=== PATIENT | male | born 1955 | race Caucasian/White ===

== ENCOUNTER → 2016-05-18 | Outpatient (CLI) | payer OTHER ==
[~2016-05-18] MED LIST: /HCTZ25TA PO; /PRAV20TA PO; /TAMS4CA PO; /WARF25TA PO; ALBU17IN INH; ALLO100T PO; AMLO10TA2 PO; ATOR1TAB21 PO; BENA40TA2 PO; CITA10TA2 PO; CLAR1CHW PO; COMBAER6 INH; FLOM5CAP PO; GLYB5TAB5 PO; INSULANT SC; METF1000 PO; METO12TA PO; NOVOINJ3 SC; PERCOCET PO; PRIL20CA9 PO; SING10TA32 PO; TYLE325T5 PO; VICT18IN SC
--- NOTE | 2016-05-18 09:29 | REP ---
CT ABDOMEN AND PELVIS WITHOUT CONTRAST: 05/18/2016 INDICATION: Kidney stones or disorder of kidneys and ureter. COMPARISON: CT of the pelvis 04/24/2016. FINDINGS: Minimal dependent atelectasis noted in the lung bases left greater than right. Liver, spleen, pancreas, gallbladder are unremarkable. There is thickening of the left adrenal which is of low density consistent with adenoma. Left kidney is without hydronephrosis, 10.9 cm in length. There are no obstructing ureteral calculi. There is a nonobstructing 10 mm calculus in the lower pole left kidney. There is moderate left perinephric low density fluid collection of 2.5 cm depth and 8 HU density, and previously of fluid density and 1.8 cm depth on 2015 . This is most compatible with sequela of previous left perinephric hematoma and is again of simple fluid density. Moderate diffuse atrophic changes are seen in the right kidney, which is 8.9 cm in length. There is [id number] dilatation of the right renal pelvis with narrowing at the right ureteropelvic junction and right ureter. There are no obstructing right ureteral calculi. There are a few nonobstructing right nephrocalculi, largest 3 mm in diameter. The stomach is contracted. Small bowel without obstruction. Terminal ileum is normal; appendix is surgically absent. Atherosclerotic change is noted in the aorta. There are two very small caliber right main renal arteries. The bladder is unremarkable. The prostate is not enlarged. There is moderate retained colonic stool and few scattered colonic diverticula. There is no free air or ascites. IMPRESSION: 1. Left perinephric simple fluid collection of 2.5 cm depth. This may represent sequela of a previous perinephric hematoma, slightly increased in depth now 2.6 mm depth, previously 1.8 cm depth. 2. Narrowing at the right ureteropelvic junction again noted. No obstructing ureteral calculi bilaterally. Bilateral nonobstructing nephrocalculi as above. Signed by Whit Millan MD 05/21/2016 10:36 A
== END ==
LOC: M RAD 07:00
PROVIDERS: ATTEND Nurse Practitioner Women's Health
DX: N28.89 Other specified disorders of kidney and ureter (principal)

== ENCOUNTER → 2016-05-25 | Outpatient (CLI) | payer OTHER ==
[2016-05-25 18:11] LABS: CREATININE FOR GFR 2.27 MG/DL (0.70-1.30); GLOMERULAR FILTRATION RATE 31.4 (>49)
[2016-05-25 18:36] LABS: MEAN CORPUSCULAR HEMOGLOBIN 28.5 pg (27.0-33.0); MEAN CORPUSCULAR HGB CONC 33.9 g/dl (32.0-36.5); RED CELL DISTRIBUTION WIDTH 12.2 % (11.5-14.5); WHITE BLOOD COUNT 11.2 K/mm3 (4.0-10.0)
== END ==
LOC: M SMT 13:46
PROVIDERS: ATTEND Urology
DX: N28.89 Other specified disorders of kidney and ureter (principal)

== ENCOUNTER → 2016-08-06 | Outpatient (CLI) | payer OTHER ==
--- NOTE | 2016-08-07 08:44 | REP ---
CT abdomen pelvis without IV and oral contrast: Comparisons are 04/24/2016 and 05/18/2016. There are least four nonobstructive left renal calculi, wall in the lower pole, the largest measuring 12 mm. There are two right renal calculi, nonobstructive, the largest measuring seven millimeters. There is no hydronephrosis or hydroureter on the. The subcapsular fluid collection identified on the comparison studies in the left kidney has resolved. The right kidney is diffusely atrophic as previously. There is minor perinephric stranding of the left kidney, not unusual for patient age. There is minor perinephric stranding on the right kidney, not unusual for patient age. The visualized lung watt are unremarkable. The unenhanced hepatic parenchyma is homogeneous. The gallbladder, pancreas and spleen are unremarkable. There is a small low density left adrenal nodule measuring 9.[address] density, compatible with adenoma, unchanged. The right adrenal is unremarkable. The abdominal aorta is unremarkable. The bowel and mesentery are unremarkable. Pelvis: There is no ascites or adenopathy. The bladder is unremarkable. A few phleboliths are noted. The pelvic bowel loops are unremarkable. There is degenerative disc disease at L3-4, unchanged. There is minor mild bilateral hip osteoarthritis. Impression: There is no hydronephrosis. There are bilateral nonobstructive renal calculi as described. No ureteral or bladder calculi. Atrophic right kidney, unchanged. The subcapsular fluid collection noted in the left kidney previously has resolved. Small left adrenal adenoma, unchanged. Otherwise, negative CT abdomen and pelvis. Signed by Brandon Correia MD 08/07/2016 08:36 A
== END ==
LOC: M RAD 16:52
PROVIDERS: ATTEND Urology
DX: N20.0 Calculus of kidney (principal)

== ENCOUNTER → 2016-09-25 | Outpatient (CLI) | payer OTHER ==
[~2016-09-25] VITALS: Ht 193 cm; Wt 129.3 kg
[~2016-09-25] MED LIST changes: +ALBU17IN2 INH; +ASPI1TAB PO; +BACT800T5 PO; +CHLO125TA PO; +GLIP5TAB15 PO; +LIDOCAINE 2% INJ 100 MG/5 ML SDV (FOR ANES.) As Ordered ONE; +LORA10TA2 PO; +MIDAZOLAM INJ 2 MG/2 ML VIAL (J2250) As Ordered ONE; +NS 1,000 ML IV ONE; +PAME10CA PO; +PROPOFOL 500 MG/50 ML VIAL As Ordered ONE; +VICO5TAB16 PO; +[UNRECOGNIZED DRUG - OTHER] SC
--- NOTE | 2016-09-25 11:41 | ROOR ---
Patient Name: Marino Blackmon Procedure Date: 09/25/2016 11:27 AM Date of : 1955 Age: 61 Room: [facility] Gender: Male Note Status: Finalized Procedure: Upper GI endoscopy Indications: Heartburn, Suspected gastroparesis Providers: Ousmane VALENZUELA MD Referring MD: MAGED POOLE MD Requesting Provider: Medicines: Monitored Anesthesia Care Complications: No immediate complications. Procedure: Pre-Anesthesia Assessment: - The heart rate, respiratory rate, oxygen saturations, blood pressure, adequacy of pulmonary ventilation, and response to care were monitored throughout the procedure. The Endoscope was introduced through the mouth, and advanced to the second part of duodenum. The upper GI endoscopy was accomplished without difficulty. The patient tolerated the procedure well. Findings: The esophagus was normal. The stomach was normal. (compliant, large volume) The examined duodenum was normal. Impression: - Normal esophagus. - Normal stomach. - Normal examined duodenum. - No specimens collected. Recommendation: - Continue present medications. - Gastroparesis diet: - Eat smaller, more frequent meals throughout the day. - Low fat diet. - Liquid/soft foods are tolerated better than solid foods. - Low fiber/well cooked vegetables are tolerated better than high fiber/fibrous foods/raw vegetables. - Avoid medications that inhibit gastric/intestinal motility such as narcotic medications. Ousmane Valenzuela MD Ousmane VALENZUELA MD 09/25/2016 11:40:43 AM This report has been signed electronically. Number of Addenda: 0 Note Initiated On: 09/25/2016 11:27 AM Estimated Blood Loss: Estimated blood loss: none.
--- NOTE | 2016-09-25 12:02 | ROOR ---
Patient Name: Marino Blackmon Procedure Date: 09/25/2016 11:28 AM Date of : 1955 Age: 61 Room: [facility] Gender: Male Note Status: Finalized Procedure: Colonoscopy Indications: Screening for colorectal malignant neoplasm Providers: Ousmane VALENZUELA MD Referring MD: MAGED POOLE MD Requesting Provider: Medicines: Monitored Anesthesia Care Complications: No immediate complications. Procedure: Pre-Anesthesia Assessment: - The heart rate, respiratory rate, oxygen saturations, blood pressure, adequacy of pulmonary ventilation, and response to care were monitored throughout the procedure. The Colonoscope was introduced through the anus and advanced to 5 cm into the ileum. The colonoscopy was performed without difficulty. The patient tolerated the procedure well. The quality of the bowel preparation was good. Findings: The perianal and digital rectal examinations were normal. (Exam: Complete, Prep: Good or Excellent.) A 5 mm polyp was found in the sigmoid colon. The polyp was sessile. The polyp was removed with a cold snare. Resection and retrieval were complete. A 5 mm polyp was found in the mid transverse colon. The polyp was sessile. The polyp was removed with a cold snare. Resection and retrieval were complete. Two sessile polyps were found in the ascending colon. The polyps were 6 to 10 mm in size. These polyps were removed with a cold snare. Resection and retrieval were complete. To prevent bleeding after the polypectomy, two hemostatic clips were successfully placed. There was no bleeding at the end of the procedure. A few medium-mouthed diverticula were found in the sigmoid colon. Small Internal Hemorrhoids. Impression: - One 5 mm polyp in the sigmoid colon, removed with a cold snare. Resected and retrieved. - One 5 mm polyp in the mid transverse colon, removed with a cold snare. Resected and retrieved. - Two 6 to 10 mm polyps in the ascending colon, removed with a cold snare. Resected and retrieved. Clips were placed. - Mild diverticulosis in the sigmoid colon. - Small Internal Hemorrhoids. Recommendation: - Repeat colonoscopy in 3 years for surveillance. Ousmane Valenzuela MD Ousmane VALENZUELA MD 09/25/2016 12:02:35 PM This report has been signed electronically. Number of Addenda: 0 Note Initiated On: 09/25/2016 11:28 AM Estimated Blood Loss: Estimated blood loss: none.
[2016-09-25 12:25] VITALS: BP 148/96
== END ==
LOC: M OPP 10:41
PROVIDERS: ATTEND Internal Medicine Gastroenterology
DX: Z12.11 Encounter for screening for malignant neoplasm of colon (principal); D12.5 Benign neoplasm of sigmoid colon; D12.3 Benign neoplasm of transverse colon; D12.2 Benign neoplasm of ascending colon; K57.30 Diverticulosis of large intestine without perforation or abscess without bleeding; K64.8 Other hemorrhoids; R12 Heartburn; I10 Essential (primary) hypertension; J45.909 Unspecified asthma, uncomplicated; Z95.5 Presence of coronary angioplasty implant and graft; E11.9 Type 2 diabetes mellitus without complications; N28.9 Disorder of kidney and ureter, unspecified; J30.2 Other seasonal allergic rhinitis; Z79.82 Long term (current) use of aspirin; Z79.84 Long term (current) use of oral hypoglycemic drugs; Z79.4 Long term (current) use of insulin; Z79.899 Other long term (current) drug therapy; Z91.040 Latex allergy status

== ENCOUNTER → 2016-09-27 | Day surgery (SDC) | payer OTHER ==
[~2016-09-27] VITALS: Ht 193 cm; Wt 129.3 kg
[~2016-09-27] MED LIST changes: +BACTRIM 160MG/800MG DS TAB PO SCH; +CONRAY-60 60% 50ML VIAL (Q9961) As Ordered ONE; +HYDROmorphone HCL 1 MG/ML SYRINGE (J1170) IV PRN; +LR 1,000 ML IV ONE; +LR 1,000 ML IV SCH; +METOCLOPRAMIDE INJ 10MG/2ML VIAL (J2765) As Ordered ONE; +METOPROLOL TART 25 MG TABLET As Ordered ONE; +METOPROLOL TART 25 MG TABLET PO ONE; +NORCO, ANEXSIA 5/325MG TABLET (HYDROcodone/ACETAMINOPHEN) PO PRN; -NS 1,000 ML IV ONE; +ONDANSETRON 4MG/2ML VIAL (J2405) As Ordered ONE; +ONDANSETRON 4MG/2ML VIAL (J2405) IV PRN; +PERCOCET 5MG/325MG TAB PO PRN; +PHENYLephrine HCL 500 MCG/5 ML (100MCG/ML) SYRINGE (J2370) As Ordered ONE; +PROPOFOL 200 MG/20 ML VIAL As Ordered ONE; -PROPOFOL 500 MG/50 ML VIAL As Ordered ONE; +dexameTHASONE 4 MG/ML 1ML VIAL (J1100) As Ordered ONE; +ePHEDrine SULFATE 25 MG/5 ML(5MG/ML) SYRINGE As Ordered ONE; +fentaNYL 100 MCG/2 ML INJECTION (J3010) As Ordered ONE; +fentaNYL 100 MCG/2 ML INJECTION (J3010) IV PRN
[2016-09-27 14:34] VITALS: BP 148/80
--- NOTE | 2016-09-27 17:31 | REP ---
Retrograde pyelogram: The procedure is performed by the urologist, Dr. Valle. A series of three intraoperative fluoroscopic views are performed during left ureteral stent placement. The proximal pigtail of the stent is identified in the proximal ureter at the UPJ. The distal pigtail appears to be a in the pelvis but is partially excluded at the inferior film margin. Fluoroscopic exposure time is 1 minute and 59 seconds. Intraoperative fluoroscopic views are performed with last image hold technology. These images require no additional radiation. Signed by Brandon Correia MD 09/27/2016 05:23 P
[2016-09-27 19:50] VITALS: BP 170/76
--- NOTE | 2016-09-28 13:00 | RO ---
DATE OF PROCEDURE: 09/27/2016 PREOPERATIVE DIAGNOSIS: Left lower pole kidney stone. POSTOPERATIVE DIAGNOSIS: Left lower pole kidney stones in multiple pieces, gravel in the lower pole. SURGERY PERFORMED: Cystoscopy, left retrograde pyelogram, plus left ureteroscopy, plus left basket extraction of stones, plus left double J stent placement, #6 Divehi [place] Cook. SURGEON: Vamsi Garza MD RESIDENTIAL SERVICE TECHNICIAN: None. ANESTHESIA: General. COMPLICATIONS: None. ESTIMATED BLOOD LOSS: N/A. HISTORY OF PRESENT ILLNESS: 61-year-old male patient that a has a history of a 1.1 cm lower pole kidney stone. He received extracorporeal shock wave lithotripsy (ESWL) about five months ago. He got a perirenal hematoma. CT scan followup shows a 1.1 cm left lower pole kidney stone. For this reason, he has consented for a cystoscopy plus left retrograde pyelogram, plus left ureteroscopy, plus left basket extraction of stones, plus left double J stent placement, possible laser stone lithotripsy, possible basket extraction of stone. DESCRIPTION OF PROCEDURE: With the patient under general anesthesia in supine modified low lithotomy position, after prepping and draping the area of concern, which included the entire genitalia and abdomen, we started by introducing a 21 Divehi cystoscope with a 30 degree lens under videoendoscopic guidance. The fossa navicularis, penile urethra, bulbar urethra, and membranous urethra and prostatic urethra were totally normal. The prostatic urethra showed lateral lobe touching and a small middle lobe. Both ureteral orifices were seen excreting clear urine. At that moment in time, we placed a Pollack catheter on the left side and we did a retrograde pyelogram. We then proceeded to pass a Guidewire up to the kidney and took the Pollack catheter out and took the cystoscope out. We then proceeded to pass a ureteral access sheath following the Guidewire. A 12 Divehi x 35 cm ureteral access sheath. We then took the obturator out and the Guidewire stayed parallel to this ureteral access sheath. We loaded a flexible ureteroscope up the ureter and up to the kidney. We did a formal nephrostogram and did a formal nephroscopy with a flexible ureteroscope. We found a hard clot in the lower pole of the kidney and some gravel. We grabbed with ZeroTip basket all the gravel that could be grabbed since it was very tiny gravel localized in the lower pole. Then we flushed it with contrast and also we flushed it with normal saline. The gravel came out through the ureter. We then sent the gravel to biochemical analysis. Once we verified there was no big stones in the kidney, we did a retrograde ureteroscopy by removing the ureteral access sheath and the ureteroscope. There were no stones in the ureter. At that moment in time, we grabbed the cystoscope and placed a left double J stent following the Guidewire. Once the stent was in good position, we actively took the Guidewire out. We could see the curl in the kidney and curl in the bladder. There were no complications of the procedure. The patient will go home today with antibiotics and pain medication. Followup at [facility] [place] in about two weeks for removal of the left double J stent.
== END ==
LOC: M SDC 12:05
PROVIDERS: ATTEND Urology
DX: N20.0 Calculus of kidney (principal); I12.9 Hypertensive chronic kidney disease with stage 1 through stage 4 chronic kidney disease, or unspecified chronic kidney disease; E11.22 Type 2 diabetes mellitus with diabetic chronic kidney disease; I25.10 Atherosclerotic heart disease of native coronary artery without angina pectoris; K21.9 Gastro-esophageal reflux disease without esophagitis; J44.9 Chronic obstructive pulmonary disease, unspecified; N40.0 Benign prostatic hyperplasia without lower urinary tract symptoms; E78.5 Hyperlipidemia, unspecified; M25.519 Pain in unspecified shoulder; M19.90 Unspecified osteoarthritis, unspecified site; J45.909 Unspecified asthma, uncomplicated; N18.3 Chronic kidney disease, stage 3 (moderate); R06.83 Snoring; G62.9 Polyneuropathy, unspecified; K92.9 Disease of digestive system, unspecified; Z95.5 Presence of coronary angioplasty implant and graft; Z87.891 Personal history of nicotine dependence; Z79.899 Other long term (current) drug therapy; Z79.82 Long term (current) use of aspirin; Z79.4 Long term (current) use of insulin
CPT/HCPCS: 36415; 52332; 52352; 74420; 82360; 86850; 86900; 86901; 88300; C1769; C1894; C2617

== ENCOUNTER → 2016-10-15 | Outpatient (REF) | payer OTHER ==
[~2016-10-15] MED LIST changes: -BACTRIM 160MG/800MG DS TAB PO SCH; +BENA40TA7 PO; -CONRAY-60 60% 50ML VIAL (Q9961) As Ordered ONE; +GLIP1TAB49 PO; -GLIP5TAB15 PO; -HYDROmorphone HCL 1 MG/ML SYRINGE (J1170) IV PRN; -LIDOCAINE 2% INJ 100 MG/5 ML SDV (FOR ANES.) As Ordered ONE; -LR 1,000 ML IV ONE; -LR 1,000 ML IV SCH; +METF10004 PO; -METO12TA PO; +METO1TAB87 PO; -METOCLOPRAMIDE INJ 10MG/2ML VIAL (J2765) As Ordered ONE; -METOPROLOL TART 25 MG TABLET As Ordered ONE; -METOPROLOL TART 25 MG TABLET PO ONE; -MIDAZOLAM INJ 2 MG/2 ML VIAL (J2250) As Ordered ONE; -NORCO, ANEXSIA 5/325MG TABLET (HYDROcodone/ACETAMINOPHEN) PO PRN; -ONDANSETRON 4MG/2ML VIAL (J2405) As Ordered ONE; -ONDANSETRON 4MG/2ML VIAL (J2405) IV PRN; -PERCOCET 5MG/325MG TAB PO PRN; -PHENYLephrine HCL 500 MCG/5 ML (100MCG/ML) SYRINGE (J2370) As Ordered ONE; -PROPOFOL 200 MG/20 ML VIAL As Ordered ONE; -dexameTHASONE 4 MG/ML 1ML VIAL (J1100) As Ordered ONE; -ePHEDrine SULFATE 25 MG/5 ML(5MG/ML) SYRINGE As Ordered ONE; -fentaNYL 100 MCG/2 ML INJECTION (J3010) As Ordered ONE; -fentaNYL 100 MCG/2 ML INJECTION (J3010) IV PRN
== END ==
LOC: M LAB REF 14:00
PROVIDERS: ATTEND Urology
DX: N20.0 Calculus of kidney (principal)

== ENCOUNTER → 2018-03-07 | Outpatient (CLI) | payer MEDICARE, OTHER | LOC: M RAD 14:42 | DX: J32.0 Chronic maxillary sinusitis (principal) | CPT/HCPCS: 70486 ==

== ENCOUNTER → 2019-06-04 | Outpatient (CLI) | payer MEDICARE ==
[~2019-06-04] MED LIST changes: -/HCTZ25TA PO; -/PRAV20TA PO; -/TAMS4CA PO; -/WARF25TA PO; +AMLO10TA5 PO; -ASPI1TAB PO; +ASPI81TA26 PO; +BENA40TA5 PO; -BENA40TA7 PO; -CLAR1CHW PO; +CLAR1CHW2 PO; +COUM1TAB18 PO; +FLOM0.4C39 PO; -FLOM5CAP PO; -GLIP1TAB49 PO; +GLIP5TAB20 PO; +HYDR-3644 PO; +LORA-243 PO; -LORA10TA2 PO; +OXYC1TAB23 PO; +PRAV1TAB39 PO; -VICO5TAB16 PO; +VICO5TAB17 PO
--- NOTE | 2019-06-04 10:37 | REP ---
CT chest without contrast: Low-dose screening exam. History: Personal history of nicotine dependence. No comparison chest CT. 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 There are mild areas of linear fibrosis in the left base and right base as well as in the right apex. No pulmonary mass lesion is seen. There is a 7 mm ground-glass opacity in the right upper lobe on page 32 of 117 in series 201 of today's study. There is a granulomatous calcification in the left upper lobe on page 45. No other significant pulmonary nodule is appreciated. Some vascular calcification is observed. Impression: 7 mm nonsolid nodule, ground-glass opacity right upper lobe. Lung-RADS category [address] CT scan 1 year. Electronically Signed by Feng Mckeon MD 06/04/2019 02:37 P
== END ==
LOC: M RAD 09:18
PROVIDERS: ATTEND Physician Assistant
DX: Z87.891 Personal history of nicotine dependence (principal)

== ENCOUNTER → 2020-03-07 | Outpatient (CLI) | payer MEDICARE ==
[~2020-03-07] MED LIST changes: -AMLO10TA5 PO; +AMLO1TAB25 PO
--- NOTE | 2020-03-07 11:53 | REP ---
INDICATION: OTHER NONSPECIFIC ABN FINDINGS OF LUNG FIELD. New. COMPARISON: Outside chest x-ray 07/13/[address] 01/06/2018, low-dose lung screening CT 06/04/2019 TECHNIQUE: Noncontrast scanning through the chest with coronal and sagittal reconstructions provided FINDINGS: On image 33 of the axial projections there is a 7 mm non-solid nodular density unchanged since the 01/06/2018 CT in the right upper lobe. There are dependent atelectatic changes deep sulcus of the left lower lobe no pleural effusion, acute infiltrate or other lung nodules there are some minor areas of linear fibrotic change in the lower lung zones as well. The heart is not enlarged. There are coronary artery calcifications and calcifications at the mitral annulus. Aortic arch calcifications noted but no aneurysm. No pathologic sized mediastinal or hilar adenopathy. No axillary or supraclavicular mass. There is a 2.2 cm low-density nodule in the left lobe of the thyroid as before. Bone windows show sternum, manubrium, medial clavicles, visualized portions of scapulae, humeral heads ribs and spine without acute finding degenerative changes are seen in the mid lower thoracic spine as well as the upper lumbar view levels. The upper abdomen shows liver, spleen, gallbladder and that portion of pancreas included to be unremarkable. The adrenal glands intact with thickened limbs suggesting adrenal hyperplasia but stable and no mass. No hiatal hernia. Some atrophy and upper pole cyst for the right kidney IMPRESSION: 1. Stable 7 mm non solid nodule right upper lobe dating back to a CT 01/06/2018. This stability is reassuring. There are some minor basilar areas of subsegmental atelectasis and linear scarring unchanged. No other significant or acute lung finding. The upper abdomen and mediastinum were unchanged without new or acute finding. <Electronically signed by Bharat Thakur > 03/07/20 1520
== END ==
LOC: M RAD 10:12
PROVIDERS: ATTEND Physician Assistant
DX: R91.8 Other nonspecific abnormal finding of lung field (principal)

== ENCOUNTER → 2020-03-31 | Outpatient (CLI) | payer MEDICARE | LOC: M LABSMTC 12:22 | PROVIDERS: ATTEND Family Medicine | DX: Z20.828 Contact with and (suspected) exposure to other viral communicable diseases (principal) ==

== ENCOUNTER → 2020-10-24 | Outpatient (REF) | payer MEDICARE ==
[2020-10-25 18:52] LABS: HEPATITIS B CORE ANTIBODY IGM NEGATIVE (NEGATIVE); HEPATITIS B SURFACE ANTIBODY NEGATIVE (POSITIVE); HEPATITIS B SURFACE ANTIGEN NEGATIVE (NEGATIVE); HEPATITIS C VIRUS ABY INDEX < 0.0 INDEX (<0.8)
== END ==
LOC: M LAB REF 17:16
PROVIDERS: ATTEND Internal Medicine Nephrology
DX: N18.5 Chronic kidney disease, stage 5 (principal); E11.22 Type 2 diabetes mellitus with diabetic chronic kidney disease; I50.32 Chronic diastolic (congestive) heart failure

== ENCOUNTER → 2020-11-01 | Outpatient (CLI) | payer MEDICARE ==
[~2020-11-01] MED LIST changes: +ELIQ5TAB PO; +LOVE1INJ SC; +SPIR1CAP INH; +SYMB16INH INH
--- NOTE | 2020-11-03 14:40 | IRCOV ---
[facility] IR Consult Office Visit IR Consult Office Visit DATE: Nov 01, 2020 REASON FOR CONSULTATION/CHIEF COMPLAINT: PermCath. HISTORY OF PRESENT ILLNESS: 65-year-old male with diabetes, hypertension, atrial fibrillation, coronary artery disease and worsening chronic renal failure. Patient reports feeling "crappy" for some weeks. He is not urinating as much as he normally does even though his Lasix was increased to 3 pills, twice a day. He reports he had bilateral leg swelling up to the groin, which improved somewhat after increasing diuretics. He reports headaches, fatigue and states he feels cold all the time. Patient denies fevers. Patient reports everything started going downhill since July 2020, when he was admitted to [facility] with atrial fibrillation. His kidney function dropped to 13%. He is under the care of Dr. Aleman for cardiology. He sees Dr. Gamble for nephrology and nephrology recommended starting hemodialysis as soon as possible. He is here to be evaluated for PermCath placement. Patient is on Eliquis for atrial fibrillation. He denies chest pain. He has neve r been on dialysis in the past. ALLERGIES: Please see below. HOME MEDICATIONS: Please see below. PAST MEDICAL HISTORY: Hypertension Asthma Hypercholesterolemia Type 2 diabetes COPD Heart attack 2 Kidney stones PAST SURGICAL HISTORY: Angioplasty and coronary stenting Inguinal hernia repair Appendectomy knee replacement Left ESWL FAMILY HISTORY: Noncontributory. SOCIAL HISTORY: Quit smoking 6 years ago. Denies alcohol or drugs. REVIEW OF SYSTEMS: Otherwise negative. PHYSICAL EXAMINATION: VITAL SIGNS: Please see below. GENERAL APPEARANCE: Comfortable at rest. HEENT: No scleral icterus. RESPIRATORY: Normal breathing at rest. CARDIOVASCULAR: Normal rate. Irregularly irregular. ABDOMEN: Distended. Nontender. EXTREMITIES: Bilateral edema to the knee. NEUROLOGICAL: Alert and oriented. PSYCHIATRIC: Appropriate to circumstance. LABORATORY DATA: No recent labs in the [facility] system. Please obtain labs from nephrology office. Imaging: None pertinent. ASSESSMENT/PLAN: 65-year-old male with asthma, diabetes, hypertension, atrial fibrillation and coronary artery disease with worsening renal failure. Patient is referred for PermCath placement to start dialysis. We discussed the risks and benefits of the procedure and patient is willing to proceed. Patient will need to hold Eliquis for 48 hours prior to the procedure, but only under the authority of Dr. Love. Patient understands this does put him at increased risk of stroke. Also with the long-term use of Eliquis, sometimes PermCath tunnels can bleed extensively, even days after initial placement. We discussed this in detail. We have scheduled the patient for PermCath placement as soon as possible. I spent 30 minutes reviewing patient's records, imaging and in consultation with the patient. Thank you for this referral. Cc Dr. Gamble CC Dr. Aleman Allergies Coded Allergies: ENVIROMENTAL (Verified Allergy, Unknown, 03/03/12) MS - Latex (Verified Adverse Reaction, Mild, RISK, 07/29/12) Home Medications Scheduled Allopurinol (Allopurinol), 100 MG PO DAILY, (Reported) Amlodipine Besylate (Amlodipine Besylate), 10 MG PO DAILY, (Reported) Atorvastatin Calcium (Atorvastatin Calcium), 20 MG PO DAILY, (Reported) Benazepril HCl (Benazepril HCl), 20 MG PO DAILY, (Reported) Chlorthalidone (Chlorthalidone), 12.5 MG PO DAILY, (Reported) Glipizide (Glipizide ER), 10 MG PO BID, (Reported) Insulin Aspart (Novolog Flexpen), 1 UNITS SC TID, (Reported) Liraglutide (Victoza 2-Edson), 1.8 MG SC DAILY, (Reported) Loratadine (Loratadine), 10 MG PO DAILY, (Reported) Metoprolol Tartrate (Metoprolol Tartrate), 50 MG PO BID, (Reported) Montelukast Sodium (Singulair), 10 MG PO DAILY, (Reported) Omeprazole (Prilosec), 20 MG PO BID, (Reported) Sulfamethoxazole/Trimethoprim (Bactrim Ds Tablet), 1 TAB PO Q12H [Basaglr], 44 SC BID, (Reported) Scheduled PRN Albuterol Sulfate (Proventil Hfa), 2 PUFFS INH Q4H PRN for SHORTNESS OF BREATH, (Reported) Hydrocodone/Acetaminophen (Vicodin 5-300 mg Tablet), 1 TAB PO Q6HP PRN for ABDOMINAL PAIN Miscellaneous Medications Ipratropium/Albuterol Sulfate (Combivent Respimat 20-100 Mcg), 2 PUFF INH, (Reported) IVAN MCINTOSH MD Nov 03, 2020 14:40
== END ==
LOC: M IRPOV 13:05
PROVIDERS: ATTEND Radiology Diagnostic Radiology
DX: N19 Unspecified kidney failure (principal); E11.29 Type 2 diabetes mellitus with other diabetic kidney complication; E78.00 Pure hypercholesterolemia, unspecified; I10 Essential (primary) hypertension; I48.91 Unspecified atrial fibrillation; I25.10 Atherosclerotic heart disease of native coronary artery without angina pectoris; I25.2 Old myocardial infarction; J44.9 Chronic obstructive pulmonary disease, unspecified; J45.909 Unspecified asthma, uncomplicated; R60.0 Localized edema; Z79.01 Long term (current) use of anticoagulants; Z79.4 Long term (current) use of insulin; Z79.899 Other long term (current) drug therapy; Z87.442 Personal history of urinary calculi; Z87.891 Personal history of nicotine dependence; Z98.61 Coronary angioplasty status; Z95.828 Presence of other vascular implants and grafts; Z96.642 Presence of left artificial hip joint

== ENCOUNTER → 2020-11-07 | Outpatient (CLI) | payer MEDICARE ==
[~2020-11-07] MED LIST changes: +LIDOCAINE 1% MDV 20ML VIAL As Ordered ONE; +MIDAZOLAM INJ 2MG/2ML VIAL (J2250 PER 1MG) As Ordered ONE; +ceFAZolin 2 GM/D5W 50 ML IV BAG (J0690 PER 500MG) As Ordered ONE; +diphenhydrAMINE 50MG/ML VIAL (J1200) As Ordered ONE; +fentaNYL 100 MCG/2 ML INJECTION (J3010) As Ordered ONE
--- NOTE | 2020-11-07 07:36 | IRHP ---
[facility] IR Pre-Procedure H & P General Date of Service: Nov 07, 2020 Procedure: Same Day Surgery Interval History and Physical I have seen the patient and reviewed last H & P performed within 30 days. There is no significant interval change. History of Present Illness Chief Complaint The patient is a 65-year-old male admitted with a reason for visit of CKD 5. PRE-PROCEDURE DIAGNOSIS: Renal failure HEART: Normal rate. LUNGS: Normal breathing at rest. ASA Classification ASA Classification: III-Severe systemic dis. Mallampati Score: II NPO: Yes Problems with prior sedation: No Obstructive Sleep Apnea: No Plan moderate sedation Allergies Coded Allergies: ENVIROMENTAL (Verified Allergy, Unknown, 03/03/12) MS - Latex (Verified Adverse Reaction, Mild, RISK, 07/29/12) Home Medications Scheduled Amlodipine Besylate (Amlodipine Besylate), 10 MG PO DAILY, (Reported) Apixaban (Eliquis), 5 MG PO BID, (Reported) Aspirin (Aspirin EC), 81 MG PO DAILY, (Reported) Atorvastatin Calcium (Atorvastatin Calcium), 20 MG PO DAILY, (Reported) Budesonide/Formoterol (Symbicort 160-4.5 Mcg Inhaler), 2 PUFF INH BID, (Reported) Enoxaparin Sodium (Lovenox), 80 MG SC ONCE, (Reported) Insulin Aspart (Novolog Flexpen), 1 UNITS SC TID, (Reported) Insulin Glargine (Lantus), 60 UNITS SC QAM, (Reported) Liraglutide (Victoza 2-Edson), 1.8 MG SC DAILY, (Reported) Loratadine (Loratadine), 10 MG PO DAILY, (Reported) Metoprolol Tartrate (Metoprolol Tartrate), 50 MG PO BID, (Reported) Montelukast Sodium (Singulair), 10 MG PO DAILY, (Reported) Omeprazole (Prilosec), 20 MG PO BID, (Reported) Tiotropium [place] (Spiriva), 1 CAP INH DAILY, (Reported) Scheduled PRN Albuterol Sulfate (Proventil Hfa), 2 PUFFS INH Q4H PRN for SHORTNESS OF BREATH, (Reported) Discontinued Medications Allopurinol (Allopurinol), 100 MG PO DAILY, (Reported) Discontinued Reason: Pt states not taking Benazepril HCl (Benazepril HCl), 20 MG PO DAILY, (Reported) Discontinued Reason: Pt states not taking Chlorthalidone (Chlorthalidone), 12.5 MG PO DAILY, (Reported) Discontinued Reason: Pt states not taking Glipizide (Glipizide ER), 10 MG PO BID, (Reported) Discontinued Reason: Pt states not taking Hydrocodone/Acetaminophen (Vicodin 5-300 mg Tablet), 1 TAB PO Q6HP PRN for ABDOMINAL PAIN Discontinued Reason: Pt states not taking Ipratropium/Albuterol Sulfate (Combivent Respimat 20-100 Mcg), 2 PUFF INH, (Reported) Discontinued Reason: Pt states not taking Sulfamethoxazole/Trimethoprim (Bactrim Ds Tablet), 1 TAB PO Q12H Discontinued Reason: Pt states not taking [Basaglr], 44 SC BID, (Reported) Discontinued Reason: Pt states not taking VS, I&O, 24H, Fishbone Vital Signs/I&O Vital Signs Date Time Temp Pulse Resp B/P (MAP) Pulse Ox O2 Delivery O2 Flow Rate FiO2 11/07/20 06:52 98.1 83 16 97 Room Air IVAN MCINTOSH MD Nov 07, 2020 07:36
--- NOTE | 2020-11-07 08:37 | IRPON ---
IR Postoperative Note Date Of Procedure: Nov 07, 2020 Time Of Procedure: 08:36 IR Postoperative Note IR PermCath placement. IR PermCath insertion under fluoroscopic and ultrasound guidance. IR Ultrasound of the right neck. IR Moderate sedation. Clinical Information:Renal failure. Physician: Dr. Farfan. Procedure: The patient was advised of the benefits, risks, and alternatives of the procedure and informed consent was obtained. A time out was performed with verification of the patient's name, MRN, site of procedure, and type of procedure to be performed. The patient was positioned in the supine position on the angiographic table. The site was prepped and draped in the usual sterile fashion. Moderate sedation was performed by the physician including the presence of an i ndependent trained RN who assisted in monitoring the patient's level of consciousness and physiological status. Following the administration of Fentanyl and Versed, the physician spent 45 minutes of continuous [id number] time with the patient. Ultrasound of the neck reveals a patent and compressible right internal jugular vein. A fabric and accessories estimator radiograph reveals no gross abnormality. The neck and anterior chest wall were anesthetized with lidocaine. The right internal jugular vein was accessed using a microintroducer needle via a lateral approach. A 0.018 cope wire was advanced into the superior vena cava, the needle was removed and a microintroducer sheath was placed. An Amplatz wire was then passed into the inferior vena cava. Incisions at the internal jugular access site and anterior chest wall were made using a scalpel. A 19 cm palindrome catheter was inserted through subcutaneous tissues of the chest wall with a tunneling device. The microintroducer sheath was removed and the internal jugular puncture site was upsized with a dilator. A peel-away sheath was placed over the wire and into the superior vena cava. The wire and insert were removed. The catheter was passed into the internal jugular vein via the sheath. The peel away sheath was then removed. The catheter tip was positioned at the cavoatrial junction. The puncture site was closed with glue. The catheter was secured in place using a 2-0 Prolene. Both sites were cleansed and sterile dressings were applied. At the conclusion of the procedure, the ports of the catheter aspirated and flushed freely. The catheter was locked with high-dose heparin. The patient tolerated the procedure well and was returned to the PRU in stable condition. EBL: < 5 ml. Complications: None. Conclusion: Successful placement of a 19 cm palindrome PermCath. The catheter is ready for immediate use. Thank you for this referral. Cc IVAN Mendoza MD Nov 07, 2020 08:37
[2020-11-07 10:12] VITALS: BP 158/91
== END ==
LOC: M IRPRO 06:30
PROVIDERS: ATTEND Radiology Diagnostic Radiology
DX: N18.5 Chronic kidney disease, stage 5 (principal); E11.22 Type 2 diabetes mellitus with diabetic chronic kidney disease; E78.00 Pure hypercholesterolemia, unspecified; I12.0 Hypertensive chronic kidney disease with stage 5 chronic kidney disease or end stage renal disease; I25.2 Old myocardial infarction; J44.9 Chronic obstructive pulmonary disease, unspecified; J45.909 Unspecified asthma, uncomplicated; Z79.4 Long term (current) use of insulin; Z79.82 Long term (current) use of aspirin; Z79.899 Other long term (current) drug therapy; Z87.442 Personal history of urinary calculi; Z87.891 Personal history of nicotine dependence; Z91.040 Latex allergy status; Z95.5 Presence of coronary angioplasty implant and graft
CPT/HCPCS: 36558; 99152; 99153; C1750; C1769; C1894; J0690; J1200; J1644; J2250; J3010

== ENCOUNTER → 2020-11-28 | Outpatient (CLI) | payer OTHER ==
[~2020-11-28] MED LIST changes: -LIDOCAINE 1% MDV 20ML VIAL As Ordered ONE; -MIDAZOLAM INJ 2MG/2ML VIAL (J2250 PER 1MG) As Ordered ONE; -ceFAZolin 2 GM/D5W 50 ML IV BAG (J0690 PER 500MG) As Ordered ONE; -diphenhydrAMINE 50MG/ML VIAL (J1200) As Ordered ONE; -fentaNYL 100 MCG/2 ML INJECTION (J3010) As Ordered ONE
--- NOTE | 2020-11-29 14:07 | REP ---
INDICATION: PRE TRANSPLANT EVAL, ESRD COMPARISON: Standard CT of the chest 03/07/2020 also without contrast but without high-resolution images. TECHNIQUE: Standard helical technique without contrast and with high-resolution images. FINDINGS: The mediastinum and pulmonary navarro are unchanged there are calcified lymph node status quo. There is no evidence of adenopathy or mass. There are no pleural or pericardial effusions. The imaged upper abdomen shows bilateral low-density adrenal gland thickening status quo. There is no significant change in the imaged osseous structures. Evaluation of the lung watt shows no new abnormal nodules, masses, or opacities. IMPRESSION: No evidence of acute disease or significant change compared to the prior exam. <Electronically signed by Ian Serrano > 11/29/20 [id number]
== END ==
LOC: M RAD 16:43
PROVIDERS: ATTEND Physician Assistant Surgical
DX: Z01.818 Encounter for other preprocedural examination (principal)

== ENCOUNTER → 2020-12-12 | Outpatient (CLI) | payer OTHER ==
--- NOTE | 2020-12-12 08:17 | REP ---
INDICATION: F/U THYROID NODULES COMPARISON: None. TECHNIQUE: Thomas scale and color evaluation of the thyroid gland using the linear high frequency transducer. FINDINGS: The thyroid gland is normal in contour, shape, size, and echogenicity. Right thyroid lobe measures 4.5 x 2.3 x 1.8 cm and includes 1.4 x 0.8 x 1.1 cm solid nodule to the right of midline with small central calcification, 1.2 x 0.7 x 0.8 cm complex cyst/hypoechoic nodule along the anterior midpole, 1.2 x 1.0 x 1.2 cm hypoechoic solid nodule in the midpole region and 1.0 x 0.6 x 0.9 cm complex cyst/hypoechoic nodule in the mid/upper pole region. Isthmus measures 5.5 mm in width. Left thyroid lobe measures 5.7 x 2.8 x 3.3 cm and is dominated by a 3.7 x 2.5 x 2.3 cm solid nodule as well as 1.3 x 1.0 x 1.0 cm hypoechoic solid nodule in the posterior lower pole and 0.6 x 0.5 x 0.5 cm complex cyst/hypoechoic nodule in the upper pole region. IMPRESSION: Complex thyroid gland with nodules as described above including solid large left lobe lesion with a TI-RADS score of TR4/5 warranting biopsy unless previously documented as benign. <Electronically signed by Carlos Montanez > 12/12/20 [id number]
== END ==
LOC: M RAD 07:01
PROVIDERS: ATTEND Physician Assistant
DX: I89.0 Lymphedema, not elsewhere classified (principal)

== ENCOUNTER → 2021-01-05 | Outpatient (CLI) | payer OTHER ==
[~2021-01-05] MED LIST changes: +ALBU83IN NEB; +CALC1CAP31 PO; +FLON1SPR NARES; +LASI40TA9 PO; +MUCI1TAB16 PO; +OMEP-218; +PROAAER10 INH; +TAMS1CAP17 PO; +VALS1TAB66 PO; +[UNRECOGNIZED DRUG - CODE] PO
== END ==
LOC: M LABSMTC 10:55
PROVIDERS: ATTEND Anesthesiology
DX: Z01.812 Encounter for preprocedural laboratory examination (principal); Z20.822 Contact with and (suspected) exposure to COVID-19

== ENCOUNTER 2021-01-10 06:04 | Day surgery (SDC) | payer MEDICARE ==
[~2021-01-10] VITALS: Ht 193 cm; Wt 136.5 kg
[~2021-01-10 06:04] MED LIST changes: +D5W/0.2% SODIUM CHLORIDE 1,000 ML IV ONE; +ceFAZolin SOD 1 GM in D5W MINI-BAG PLUS 50 ML IV SCH
[2021-01-10] MEDS ORDERED: ceFAZolin SOD 2 GM in IV 1 EA IV ONE (06:50)
[2021-01-10] MEDS ORDERED: fentaNYL 250 MCG/5 ML INJECTION (J3010) As Ordered ONE (07:05)
[2021-01-10] MEDS ORDERED: MIDAZOLAM INJ 2MG/2ML VIAL (J2250 PER 1MG) As Ordered ONE (07:06)
[2021-01-10] MEDS ORDERED: propofoL 200 MG/20 ML VIAL As Ordered ONE (07:06)
[2021-01-10] MEDS ORDERED: dexameTHASONE 4 MG/ML 1ML VIAL (J1100 PER 1MG) As Ordered ONE (07:07)
[2021-01-10] MEDS ORDERED: LIDOCAINE 2% 100MG/5ML SDV (FOR ANES.) As Ordered ONE (07:07)
[2021-01-10] MEDS ORDERED: ONDANSETRON 4MG/2ML VIAL As Ordered ONE (07:07)
[2021-01-10] MEDS ORDERED: HEPARIN SOD (PORCINE) 5000UNITS/ML 1ML VIAL/SYRINGE As Ordered ONE (07:12)
[2021-01-10] MEDS ORDERED: BUPIVACAINE HCL 0.25% 30ML VIAL As Ordered ONE (07:12)
[2021-01-10] MEDS ORDERED: CISATRACURIUM 2MG/ML 5ML VIAL As Ordered ONE ×2 (07:21→08:28)
[2021-01-10] MEDS ORDERED: SCOPOLAMINE 1MG TRANSDERMAL PATCH TOP ONE (07:30)
[2021-01-10 07:32] LABS: CALCIUM LEVEL 8.7 MG/DL (8.8-10.2); CREATININE FOR GFR 4.4 MG/DL (0.70-1.30); GLOMERULAR FILTRATION RATE 14.4 (>49); POTASSIUM SERUM 3.9 MEQ/L (3.5-5.1)
[2021-01-10] MEDS ORDERED: ePHEDrine SULFATE 25 MG/5 ML(5MG/ML) SYRINGE As Ordered ONE (08:05)
[2021-01-10] MEDS ORDERED: PHENYLephrine 500MCG 5ML (100MCG/ML) SYRINGE As Ordered ONE (08:08)
[2021-01-10] MEDS ORDERED: GLYCOPYRROLATE INJ 0.2 MG/ML 2 ML VIAL As Ordered ONE (08:11)
[2021-01-10] MEDS ORDERED: NEOSTIGMINE 10MG/10ML VIAL (J2710 PER 0.5MG) As Ordered ONE (08:11)
[2021-01-10] MEDS ORDERED: oxyCODONE 5MG TAB PO PRN (09:55)
[2021-01-10] MEDS ORDERED: ACETAMINOPHEN 500 MG TAB PO PRN (09:55)
[2021-01-10] MEDS ORDERED: fentaNYL 100 MCG/2 ML INJECTION (J3010) IV PRN (10:05)
[2021-01-10] MEDS ORDERED: ONDANSETRON 4MG/2ML VIAL IV PRN (10:05)
[2021-01-10] MEDS ORDERED: METOCLOPRAMIDE INJ 10MG/2ML VIAL (J2765 PER 1) IV PRN (10:05)
[2021-01-10] MEDS ORDERED: PERCOCET 5MG/325MG TAB PO PRN (10:05)
[2021-01-10] MEDS ORDERED: NS 1,000 ML IV SCH (10:05)
[2021-01-10 10:43] VITALS: BP 131/88
--- NOTE | 2021-01-11 10:14 | RO ---
OPERATIVE NOTE DATE OF OPERATION: 01/10/2021 PREOPERATIVE DIAGNOSIS: End-stage renal disease. POSTOPERATIVE DIAGNOSIS: End-stage renal disease with abdominal adhesions. PROCEDURE PERFORMED: Laparoscopy with lysis of adhesions and implantation of continuous ambulatory peritoneal dialysis catheter. The catheter implanted was a [employer] [place] curl cath 2 cuff peritoneal dialysis catheter. SURGEON: Trent Jensen MD LEGAL RECEPTIONIST: ANESTHESIA: General. INDICATIONS FOR THE PROCEDURE: The patient is a 65-year-old man with a history of progressive renal failure at end stage. He is doing hemodialysis and would like to convert to peritoneal dialysis. He is now for placement of a peritoneal dialysis catheter. Because of a past history of an open appendectomy, he is also for laparoscopy for lysis of adhesions as necessary. OPERATIVE PROCEDURE: The patient was brought to the operating room and placed on the table in a supine position. He was placed under general endotracheal anesthesia. The patient's abdomen was prepped and draped in a sterile fashion. A site for placement of the laparoscopic trocar, which would also serve as the insertion point for the catheter was selected in the left upper quadrant approximately 6-8 cm to the left of the midline. 0.25% Marcaine was infiltrated at the incisions as necessary. A short longitudinal incision was made and the Veress needle was inserted. After a positive hanging drop test, the abdomen was inflated with carbon dioxide gas. A 5-mm trocar was placed over a 5-mm scope and advanced through the abdominal wall without difficulty. The abdomen was further inflated and inspection was performed with the laparoscope. There was no evidence of trocar or Veress needle injury. The liver appeared normal. There was abundant intraabdominal fat covering the bowel. The patient was placed into a slight Trendelenburg position. He was noted to have an area of adhesions between the omentum and the anterior abdominal wall along the midline extending from the umbilicus inferiorly approximately 10-12 cm. A second 5-mm port was placed in the left mid abdomen. The adhesions were lysed using a combination of cautery and sharp dissection with cauterizing scissors. Care was taken to ensure hemostasis. The abdomen was then deflated and the lateral trocar was removed. An approximately 3-4 cm incision was made centered on the trocar site in the left upper abdomen. This was deepened through the subcutaneous fat to the fascia. Fascia was opened along the midline and the rectus muscle fibers were spread. The opening in the posterior sheath of the rectus muscle was identified. A pursestring suture of 2-0 Vicryl was placed around this opening. The peritoneal dialysis catheter was placed over a long stylette and with the patient still in a slight Trendelenburg position, the inferior edge of the peritoneal opening was elevated and the catheter was inserted and directed inferiorly along the anterior abdominal wall. The catheter was then slipped off of the stylette. The inner pledget was placed just outside the peritoneum. The pursestring suture of 2-0 Vicryl was tied down and then also tied around the pledget to keep the catheter from withdrawing. The rectus muscle fibers were allowed to close in around the pledget and the anterior rectus sheath was closed with a running suture of 1-0 Vicryl. The catheter was tunneled through the subcutaneous tissues to exit through a small stab wound laterally with the catheter at that point directed inferiorly. The infusion hub was attached to the dialysis catheter. The patient was placed into a slight reverse Trendelenburg position. A liter of normal saline was then infused through the catheter. The infusion bag was then dropped to the floor to allow return of fluid. While the fluid was infusing, the incision was closed with several buried 3-0 chromic sutures and a running suture of 4-0 Vicryl. There was only approximately 100-200 cc of fluid that returned. I elected to re-insufflate the abdomen and inspect to ensure that the catheter remained in good position. Therefore, the 5-mm port in the left mid abdomen was reinserted gently through the previous tract. The abdomen was re-insufflated. The catheter was found curled sitting on the anterior surface of the omentum in the left lower quadrant. There was no evidence of any residual adhesions in this area. I elected to leave this in this position. The abdomen was then deflated and the trocar was again removed. The catheter was filled with 1 mL of 5000 units per mL of heparin and approximately 1.4 mL of sterile saline. The catheter was capped and a small clamp was applied. The site was dressed with a CHG OpSite. Steri-Strips had been applied to the incisions. The patient tolerated the procedure well. A bulky bandage was placed over the OpSite in the event of any drainage around the catheter. He was awakened in the operating room, extubated and moved to the recovery room in stable condition.
== END 2021-01-10 11:40 | disposition home or self-care (01) ==
LOC: M SDC 06:04
PROVIDERS: ATTEND Surgery
DX: N18.6 End stage renal disease (principal); K66.0 Peritoneal adhesions (postprocedural) (postinfection); J44.9 Chronic obstructive pulmonary disease, unspecified; E11.21 Type 2 diabetes mellitus with diabetic nephropathy; E66.01 Morbid (severe) obesity due to excess calories; I25.10 Atherosclerotic heart disease of native coronary artery without angina pectoris; I12.0 Hypertensive chronic kidney disease with stage 5 chronic kidney disease or end stage renal disease; I48.91 Unspecified atrial fibrillation; J45.909 Unspecified asthma, uncomplicated; R06.83 Snoring; R06.02 Shortness of breath; J32.0 Chronic maxillary sinusitis; I25.2 Old myocardial infarction; E78.5 Hyperlipidemia, unspecified; M19.90 Unspecified osteoarthritis, unspecified site; Z95.5 Presence of coronary angioplasty implant and graft; Z79.899 Other long term (current) drug therapy; Z79.01 Long term (current) use of anticoagulants; Z79.51 Long term (current) use of inhaled steroids; Z79.82 Long term (current) use of aspirin; Z79.4 Long term (current) use of insulin; F17.220 Nicotine dependence, chewing tobacco, uncomplicated; Z91.040 Latex allergy status
CPT/HCPCS: 36415; 49324; 80048; C1750; J0690; J1100; J1644; J2250; J2370; J2405; J2710; J3010

== ENCOUNTER → 2021-03-25 | Outpatient (CLI) | payer MEDICARE ==
[~2021-03-25] MED LIST changes: -D5W/0.2% SODIUM CHLORIDE 1,000 ML IV ONE; -ceFAZolin SOD 1 GM in D5W MINI-BAG PLUS 50 ML IV SCH
== END ==
LOC: M LABSMTC 11:38
PROVIDERS: ATTEND Anesthesiology
DX: Z11.52 Encounter for screening for COVID-19 (principal); Z20.822 Contact with and (suspected) exposure to COVID-19

== ENCOUNTER 2021-03-28 07:44 | Day surgery (SDC) | payer MEDICARE ==
[~2021-03-28] VITALS: Ht 193 cm; Wt 139.3 kg
[~2021-03-28 07:44] MED LIST changes: -BENA40TA5 PO; +BENA40TA84 PO; +NS 1,000 ML IV ONE; +OMEP-173; -OMEP-218
[2021-03-28] MEDS ORDERED: propofoL 200 MG/20 ML VIAL As Ordered ONE ×2 (08:08→09:31)
[2021-03-28] MEDS ORDERED: LIDOCAINE 2% 100MG/5ML SDV (FOR ANES.) As Ordered ONE (08:09)
[2021-03-28 10:10] VITALS: BP 173/95
[2021-06-07] MEDS ORDERED: TRAM50TA2 (13:48)
[2021-06-07] MEDS ORDERED: OXCA150T21 (13:48)
== END 2021-03-28 10:18 | disposition home or self-care (01) ==
LOC: M OPP 07:44
PROVIDERS: ATTEND Internal Medicine Gastroenterology
DX: Z12.11 Encounter for screening for malignant neoplasm of colon (principal); Z86.010 Personal history of colon polyps; D12.2 Benign neoplasm of ascending colon; D12.3 Benign neoplasm of transverse colon; D12.4 Benign neoplasm of descending colon; D12.5 Benign neoplasm of sigmoid colon; K57.30 Diverticulosis of large intestine without perforation or abscess without bleeding; K64.8 Other hemorrhoids; Z79.4 Long term (current) use of insulin; Z79.82 Long term (current) use of aspirin; Z79.899 Other long term (current) drug therapy; Z87.891 Personal history of nicotine dependence; Z87.442 Personal history of urinary calculi; Z87.828 Personal history of other (healed) physical injury and trauma

== ENCOUNTER → 2021-04-04 | Outpatient (POV) | payer MEDICARE, OTHER ==
[~2021-04-04] VITALS: Ht 193 cm; Wt 134.0 kg
[~2021-04-04] MED LIST changes: +BENA40TA5 PO; -BENA40TA84 PO; -NS 1,000 ML IV ONE; -OMEP-173; +OMEP-218
[2021-04-04 14:40] VITALS: BP 178/82
--- NOTE | 2021-04-06 14:42 | IRPN ---
[facility] IR Progress Note IR Progress Note DATE: Apr 04, 2021 FOLLOW-UP: Patient had right-sided PermCath placed by me in October, for hemo- dialysis. Patient now has a peritoneal dialysis catheter and has been dialyzing for greater than a month with no issues. No further hemodialysis is planned. Patient is referred for PermCath removal. ON EXAMINATION: Right PermCath in place. No cellulitis. IMPRESSION: We discussed the risks and benefits of PermCath removal and patient is agreeable to proceed. We have scheduled the patient for PermCath removal. Thank you for this referral Allergies Coded Allergies: ENVIRONMENTAL (Verified Allergy, Unknown, 01/04/21) VS,Fishbone, I+O VS, Fishbone, I+O Vital Signs Date Time Temp Pulse Resp B/P (MAP) Pulse Ox O2 Delivery O2 Flow Rate FiO2 04/04/21 14:40 98.2 99 20 178/82 (114) 96 Room Air IVAN MCINTOSH MD Apr 06, 2021 14:42
== END ==
LOC: M IRPOV 14:27
PROVIDERS: ATTEND Radiology Diagnostic Radiology
DX: Z45.2 Encounter for adjustment and management of vascular access device (principal)

== ENCOUNTER → 2021-04-06 | Outpatient (CLI) | payer MEDICARE, OTHER ==
[~2021-04-06] MED LIST changes: +LIDOCAINE 1% MDV 20ML VIAL As Ordered ONE
[2021-04-06 09:55] VITALS: BP 168/86
--- NOTE | 2021-04-06 16:13 | IRPON ---
IR Postoperative Note Date Of Procedure: Apr 06, 2021 Time Of Procedure: 16:12 IR Postoperative Note IR PermCath removal. Clinical indication: Renal failure. Now dialyzes through peritoneal dialysis catheter. The PermCath site was prepped and draped in the usual sterile fashion. Lidocaine was used for local anesthesia. The catheter cuff was dissected out of the soft tissues using blunt dissection. The catheter was removed in it's entirety. Patient tolerated the procedure well, hemostasis achieved and a sterile dressing was applied to the site. Blood loss: Less than 5 mL. Complications: None. Impression: Successful removal of PermCath. IVAN MCINTOSH MD Apr 06, 2021 16:13
== END ==
LOC: M IRPRO 08:27
PROVIDERS: ATTEND Radiology Diagnostic Radiology
DX: Z45.2 Encounter for adjustment and management of vascular access device (principal); N18.6 End stage renal disease; Z99.2 Dependence on renal dialysis

== ENCOUNTER → 2021-05-29 | Outpatient (CLI) | payer MEDICARE ==
[~2021-05-29] MED LIST changes: -BENA40TA5 PO; +BENA40TA84 PO; -LIDOCAINE 1% MDV 20ML VIAL As Ordered ONE; +OMEP-173; -OMEP-218; +OXCA150T21; +TRAM50TA2
== END ==
LOC: M RAD 09:32
PROVIDERS: ATTEND Surgery
DX: L97.812 Non-pressure chronic ulcer of other part of right lower leg with fat layer exposed (principal); L97.822 Non-pressure chronic ulcer of other part of left lower leg with fat layer exposed

== ENCOUNTER → 2021-06-07 | Emergency (ER) | payer MEDICARE ==
[~2021-06-07] VITALS: Ht 193 cm; Wt 127.3 kg
[2021-06-07 17:05] LABS: BASO # 0.1 10^3/uL (0.0-0.2); BASO % 0.8 % (0.0-1.0); EOS # 0.1 10^3/uL (0.0-0.5); EOS % 1.5 % (0.0-3.0); HEMATOCRIT 33.1 % (42.0-52.0); HEMOGLOBIN 10.9 g/dl (13.5-17.5); LYMPH # 0.4 10^3/uL (1.5-5.0); LYMPH % 4.9 % (24.0-44.0); MEAN CORPUSCULAR HEMOGLOBIN 28.2 pg (27.0-33.0); MEAN CORPUSCULAR HGB CONC 32.9 g/dl (32.0-36.5); MEAN CORPUSCULAR VOLUME 85.5 fl (80.0-96.0); MONO # 1.1 10^3/uL (0.0-0.8); MONO % 13.5 % (2.0-8.0); NEUTROPHILS # 6.1 10^3/uL (1.5-8.5); NEUTROPHILS % 76.8 % (36.0-66.0); PLATELET COUNT, AUTOMATED 166 10^3/uL (150-450); RED BLOOD COUNT 3.87 10^6/uL (4.30-6.10)
[2021-06-07 19:32] LABS: ALBUMIN 2.7 GM/DL (3.2-5.2); BILIRUBIN,DIRECT 0.2 MG/DL (0.0-0.2); BILIRUBIN,TOTAL 0.3 MG/DL (0.2-1.0); CALCIUM LEVEL 8.6 MG/DL (8.8-10.2); CREATININE FOR GFR 8.17 MG/DL (0.70-1.30); POTASSIUM SERUM 3.2 MEQ/L (3.5-5.1); THYROID STIMULATING HORMONE 1.54 uIU/ML (0.358-3.740); TOTAL PROTEIN 6.3 GM/DL (6.4-8.2)
[2021-06-07 20:42] VITALS: BP 159/80
[2021-06-08 17:23] LABS: MAGNESIUM LEVEL 1.6 MG/DL (1.7-2.2)
== END | disposition home or self-care (01) ==
LOC: M ED 13:38
DX: U07.1 COVID-19 (principal); N18.6 End stage renal disease; E11.9 Type 2 diabetes mellitus without complications; I48.91 Unspecified atrial fibrillation; Z79.51 Long term (current) use of inhaled steroids; Z79.01 Long term (current) use of anticoagulants; Z79.82 Long term (current) use of aspirin; Z99.2 Dependence on renal dialysis

== ENCOUNTER 2021-06-09 11:10 | Outpatient (CLI) | payer MEDICARE ==
[~2021-06-09 11:10] MED LIST changes: +ACETAMINOPHEN TAB 650MG DOSE (2X325MG) PO ONE; +ACETAMINOPHEN TAB 650MG DOSE (2X325MG) PO PRN; +ALBUTEROL 90 MCG/ACT 8GM HFA INHALER INH PRN; +ALBUTEROL SULFATE 2.5 MG/0.5 ML INH NEB SOLN INH PRN; +EPINEPHrine INJ 1 MG/ML 1ML AMP IM PRN; +NS 1,000 ML IV SCH; +diphenhydrAMINE 25MG CAP PO ONE; +diphenhydrAMINE 50MG/ML VIAL (J1200) IV PRN; +methylPREDNISolone 125MG 2ML VIAL IV PRN
[2021-06-09] MEDS ORDERED: EPINEPHrine INJ 1 MG/ML 1ML AMP IM PRN (12:35)
[2021-06-09] MEDS ORDERED: diphenhydrAMINE 50MG/ML VIAL (J1200) IV PRN (12:35)
[2021-06-09] MEDS ORDERED: diphenhydrAMINE 25MG CAP PO ONE (12:35)
[2021-06-09] MEDS ORDERED: ACETAMINOPHEN TAB 650MG DOSE (2X325MG) PO PRN (12:35)
[2021-06-09] MEDS ORDERED: ALBUTEROL SULFATE 2.5 MG/0.5 ML INH NEB SOLN INH PRN (12:35)
[2021-06-09] MEDS ORDERED: SOTROVIMAB 500 MG in NS 100 ML IV ONE (12:35)
[2021-06-09] MEDS ORDERED: ACETAMINOPHEN TAB 650MG DOSE (2X325MG) PO ONE (12:35)
[2021-06-09] MEDS ORDERED: ALBUTEROL 90 MCG/ACT 8GM HFA INHALER INH PRN (12:35)
[2021-06-09] MEDS ORDERED: methylPREDNISolone 125MG 2ML VIAL IV PRN (12:40)
[2021-06-09 13:16] VITALS: BP 148/84
[2021-06-09 13:46] VITALS: BP_SYST 132; BP_SYST 138; BP_DIAS 66; BP_DIAS 68
== END 2021-06-09 15:03 | disposition home or self-care (01) ==
LOC: M OPCLI4PR 11:10 → M 4MAIN 11:18 → M OPCLI4PR 15:03
PROVIDERS: ATTEND Family Medicine
DX: U07.1 COVID-19 (principal)

== ENCOUNTER → 2021-07-04 | Outpatient (POV) | payer MEDICARE ==
[~2021-07-04] VITALS: Ht 193 cm; Wt 131.8 kg
[~2021-07-04] MED LIST changes: -ACETAMINOPHEN TAB 650MG DOSE (2X325MG) PO ONE; -ACETAMINOPHEN TAB 650MG DOSE (2X325MG) PO PRN; -ALBUTEROL 90 MCG/ACT 8GM HFA INHALER INH PRN; -ALBUTEROL SULFATE 2.5 MG/0.5 ML INH NEB SOLN INH PRN; -EPINEPHrine INJ 1 MG/ML 1ML AMP IM PRN; -NS 1,000 ML IV SCH; -diphenhydrAMINE 25MG CAP PO ONE; -diphenhydrAMINE 50MG/ML VIAL (J1200) IV PRN; -methylPREDNISolone 125MG 2ML VIAL IV PRN
[2021-07-04 14:50] VITALS: BP 193/108
== END ==
LOC: M IRPOV 14:42
PROVIDERS: ATTEND Radiology Diagnostic Radiology
DX: I70.211 Atherosclerosis of native arteries of extremities with intermittent claudication, right leg (principal); I70.238 Atherosclerosis of native arteries of right leg with ulceration of other part of lower leg; L97.219 Non-pressure chronic ulcer of right calf with unspecified severity; R60.0 Localized edema; E11.22 Type 2 diabetes mellitus with diabetic chronic kidney disease; E11.40 Type 2 diabetes mellitus with diabetic neuropathy, unspecified; I12.9 Hypertensive chronic kidney disease with stage 1 through stage 4 chronic kidney disease, or unspecified chronic kidney disease; I25.2 Old myocardial infarction; I48.91 Unspecified atrial fibrillation; J44.9 Chronic obstructive pulmonary disease, unspecified; N18.6 End stage renal disease; Z79.01 Long term (current) use of anticoagulants; Z79.4 Long term (current) use of insulin; Z79.82 Long term (current) use of aspirin; Z79.899 Other long term (current) drug therapy; Z87.891 Personal history of nicotine dependence; Z98.61 Coronary angioplasty status

== ENCOUNTER → 2021-07-06 | Outpatient (CLI) | payer MEDICARE | LOC: M PAIN 11:30 | PROVIDERS: ATTEND Nurse Practitioner Family | DX: G89.29 Other chronic pain (principal); M79.604 Pain in right leg; M79.605 Pain in left leg; I10 Essential (primary) hypertension; J45.909 Unspecified asthma, uncomplicated; E78.00 Pure hypercholesterolemia, unspecified; E11.42 Type 2 diabetes mellitus with diabetic polyneuropathy; J44.9 Chronic obstructive pulmonary disease, unspecified; I25.2 Old myocardial infarction; I48.91 Unspecified atrial fibrillation; Z87.442 Personal history of urinary calculi; Z87.891 Personal history of nicotine dependence; Z79.4 Long term (current) use of insulin; Z79.01 Long term (current) use of anticoagulants; Z79.82 Long term (current) use of aspirin; Z79.899 Other long term (current) drug therapy; Z79.891 Long term (current) use of opiate analgesic ==

== ENCOUNTER → 2021-07-17 | Outpatient (CLI) | payer MEDICARE | LOC: M RAD 10:15 | PROVIDERS: ATTEND Radiology Diagnostic Radiology | DX: I83.893 Varicose veins of bilateral lower extremities with other complications (principal) ==

== ENCOUNTER 2022-01-19 18:11 | Emergency (ER) | payer MEDICARE ==
[~2022-01-19 18:11] MED LIST changes: +ALBU2.5V10 NEB; -ALBU83IN NEB; +FLON1SPR; -FLON1SPR NARES; -OMEP-173; +OMEP-173 PO
[2022-01-19 20:01] LABS: BASO # 0.1 10^3/uL (0.0-0.2); BASO % 0.4 % (0.0-1.0); LYMPH # 0.6 10^3/uL (1.5-5.0); LYMPH % 3.7 % (24.0-44.0); MEAN CORPUSCULAR HEMOGLOBIN 28.6 pg (27.0-33.0); MEAN CORPUSCULAR HGB CONC 33.3 g/dl (32.0-36.5); MEAN CORPUSCULAR VOLUME 85.7 fl (80.0-96.0); MONO # 1.3 10^3/uL (0.0-0.8); MONO % 8.8 % (2.0-8.0); NEUTROPHILS # 12.7 10^3/uL (1.5-8.5); NEUTROPHILS % 84.3 % (36.0-66.0); PLATELET COUNT, AUTOMATED 165 10^3/uL (150-450)
[2022-01-19 20:47] LABS: CK-MB VALUE MASS 2.7 NG/ML (<3.6); MB/CK RELATIVE INDEX 3.03 (< OR =4)
[2022-01-19 21:03] LABS: VENOUS BASE EXCESS -4.2 (-2.0-2.0); VENOUS O2 SATURATION 91.8 % (60.0-80.0); VENOUS PARTIAL PRESSURE CO2 51.9 mmHg (38.0-50.0); VENOUS PARTIAL PRESSURE O2 67.2 mmHg (30.0-50.0); VENOUS PH 7.265 UNITS (7.330-7.430); VENOUS STANDARD HCO3 20.9 MEQ/L; VENOUS TOTAL CO2 24.6 MEQ/L (24.0-28.0)
[2022-01-19 21:04] LABS: ACETONE/KETONE 1.71 MG/DL (<2.81); ALBUMIN 2.3 GM/DL (3.2-5.2); BILIRUBIN,DIRECT 0.2 MG/DL (0.0-0.2); BILIRUBIN,TOTAL 0.4 MG/DL (0.2-1.0); CALCIUM LEVEL 8.3 MG/DL (8.8-10.2); CREATININE FOR GFR 8.88 MG/DL (0.70-1.30); GLOMERULAR FILTRATION RATE 6.4 (>49); POTASSIUM SERUM 3.9 MEQ/L (3.5-5.1); TOTAL PROTEIN 5.8 GM/DL (6.4-8.2)
[2022-01-19 21:37] LABS: CK-MB VALUE MASS 2.5 NG/ML (<3.6); MB/CK RELATIVE INDEX 2.6 (< OR =4)
[2022-01-19 23:24] VITALS: BP 115/59
== END 2022-01-19 23:31 | disposition home or self-care (01) ==
LOC: M ED 18:11 → EDSEX 18:11 → EDBD 18:11 → M ED 23:31
DX: R53.81 Other malaise (principal); D72.829 Elevated white blood cell count, unspecified; R11.2 Nausea with vomiting, unspecified; J98.11 Atelectasis; R19.7 Diarrhea, unspecified; I48.91 Unspecified atrial fibrillation; I25.10 Atherosclerotic heart disease of native coronary artery without angina pectoris; I11.9 Hypertensive heart disease without heart failure; J45.909 Unspecified asthma, uncomplicated; L97.512 Non-pressure chronic ulcer of other part of right foot with fat layer exposed; N18.6 End stage renal disease; Z99.2 Dependence on renal dialysis; E78.5 Hyperlipidemia, unspecified; E11.621 Type 2 diabetes mellitus with foot ulcer; I87.313 Chronic venous hypertension (idiopathic) with ulcer of bilateral lower extremity; Z87.442 Personal history of urinary calculi; Z79.01 Long term (current) use of anticoagulants; Z79.4 Long term (current) use of insulin; Z79.899 Other long term (current) drug therapy; Z79.82 Long term (current) use of aspirin

== ENCOUNTER → 2022-02-15 | Outpatient (REF) | payer MEDICARE ==
[~2022-02-15] MED LIST changes: -FLON1SPR; +FLON1SPR NARES; +OMEP-173; -OMEP-173 PO
== END ==
LOC: M SFHCWOUN 17:06
PROVIDERS: ATTEND Physician Assistant
DX: L97.512 Non-pressure chronic ulcer of other part of right foot with fat layer exposed (principal)

== ENCOUNTER 2022-03-05 13:16 | Inpatient (IN) | payer MEDICARE ==
[~2022-03-05] VITALS: Ht 193 cm; Wt 128.5 kg
[~2022-03-05 13:16] MED LIST changes: +FLON1SPR; -FLON1SPR NARES; -OMEP-173; +OMEP-173 PO
[2022-03-05 15:10] LABS: BASO % 0.2 % (0.0-1.0); HEMOGLOBIN 8.6 g/dl (13.5-17.5); LYMPH # 0.5 10^3/uL (1.5-5.0); LYMPH % 2.9 % (24.0-44.0); MEAN CORPUSCULAR HEMOGLOBIN 28.5 pg (27.0-33.0); MEAN CORPUSCULAR HGB CONC 33.1 g/dl (32.0-36.5); MEAN CORPUSCULAR VOLUME 86.1 fl (80.0-96.0); MONO # 0.8 10^3/uL (0.0-0.8); MONO % 4.2 % (2.0-8.0); NEUTROPHILS # 17.2 10^3/uL (1.5-8.5); NEUTROPHILS % 91.2 % (36.0-66.0); PLATELET COUNT, AUTOMATED 150 10^3/uL (150-450); RED BLOOD COUNT 3.02 10^6/uL (4.30-6.10); WHITE BLOOD COUNT 18.9 10^3/uL (4.0-10.0)
[2022-03-05 15:51] LABS: RSV AMPLIFICATION NEGATIVE (NEGATIVE)
[2022-03-05 16:16] LABS: MB/CK RELATIVE INDEX 6.06 (< OR =4)
[2022-03-05 16:27] LABS: BILIRUBIN,DIRECT 0.2 MG/DL (0.0-0.2); BILIRUBIN,TOTAL 0.5 MG/DL (0.2-1.0); CALCIUM LEVEL 8.3 MG/DL (8.8-10.2); CREATININE FOR GFR 8.95 MG/DL (0.70-1.30); GLOMERULAR FILTRATION RATE 6.3 (>49); POTASSIUM SERUM 3.7 MEQ/L (3.5-5.1)
[2022-03-05 16:28] LABS: THYROID STIMULATING HORMONE 1.85 uIU/ML (0.358-3.740)
[2022-03-05] MEDS: MORPHINE 2 MG/ML 1ML VIAL IV PRN ×2 (17:05→17:51)
[2022-03-05] MEDS ORDERED: ACETAMINOPHEN TAB 650MG DOSE (2X325MG) PO ONE (17:05)
[2022-03-05] MEDS ORDERED: GLUCOSE 4GM CHEW TABLET PO PRN (19:40)
[2022-03-05] MEDS ORDERED: HEPARIN SOD (PORCINE) 5000UNITS/ML 1ML VIAL/SYRINGE SC SCH (19:40)
[2022-03-05] MEDS ORDERED: ACETAMINOPHEN *IV* 1,000 MG in IV 1 EA IV ONE (19:40)
[2022-03-05] MEDS ORDERED: DEXTROSE 50% 50 ML SYRINGE IV PRN (19:40)
[2022-03-05] MEDS ORDERED: GLUCAGON INJ 1MG VIAL SC PRN (19:40)
[2022-03-05] MEDS ORDERED: VANCOMYCIN HCL 2,000 MG, VIAL MATE ADAPTER 1 EACH in NS 250 ML IV SCH (19:40)
[2022-03-05] MEDS ORDERED: METH-1165 PO (20:24)
[2022-03-05] MEDS ORDERED: VALS1TAB68 PO (20:24)
[2022-03-05] MEDS ORDERED: TORS100T PO (20:24)
[2022-03-05] MEDS ORDERED: MONT10TA97 PO (20:24)
[2022-03-05] MEDS ORDERED: HOME MED LIST COMPLETE! XX SCH ×2 (20:25→20:40)
[2022-03-05] MEDS ORDERED: [UNRECOGNIZED DRUG - REMARK] (20:26)
[2022-03-05] MEDS ORDERED: OXcarbazepine 150 MG TAB PO SCH (22:05)
[2022-03-05] MEDS ORDERED: VANCOMYCIN HCL 1,000 MG, VIAL MATE ADAPTER 1 EACH in NS 250 ML IV ONE (23:00)
[2022-03-05] MEDS: PIPERACILLIN/TAZOBACTAM SOD 2.25 GM in D5W MINI-BAG PLUS 50 ML IV SCH (23:32)
[2022-03-05] MEDS ORDERED: LOPR1TAB6 PO (23:42)
[2022-03-05] MEDS ORDERED: DILT180C28 PO (23:42)
[2022-03-05] MEDS ORDERED: GLUC3SPR (23:42)
[2022-03-05] MEDS ORDERED: ALBU8.5H INH (23:42)
[2022-03-05] MEDS ORDERED: SPIR12.9 INH (23:42)
[2022-03-06] MEDS ORDERED: METOPROLOL 5 MG/5 ML VIAL IV SCH
[2022-03-06] MEDS ORDERED: VANCOMYCIN HCL 1,000 MG, VIAL MATE ADAPTER 1 EACH in NS 250 ML IV ONE ×3
[2022-03-06] MEDS: LEVEMIR (INSULIN DETEMIR) 1 UNITS/0.01ML SC SCH ×3 (00:18→21:57)
[2022-03-06] MEDS ORDERED: SANT250O8 TOP (00:35)
[2022-03-06] MEDS ORDERED: METO5TAB2 PO (00:35)
[2022-03-06] MEDS ORDERED: MUPI2OI EXT (00:35)
[2022-03-06] MEDS ORDERED: HOME MED LIST COMPLETE! XX SCH (00:40)
[2022-03-06] MEDS: INSULIN LISPRO (NovoLOG) PER UNIT SC SCH ×4 (00:53→18:16)
[2022-03-06 01:10] VITALS: BP 80/54
[2022-03-06] MEDS ORDERED: SODIUM CHLORIDE 0.9% 250ML IV ONE (01:20)
[2022-03-06 02:00] VITALS: BP 101/53
[2022-03-06] MEDS: ACETAMINOPHEN TAB 650MG DOSE (2X325MG) PO PRN ×2 (02:31→14:07)
[2022-03-06 02:38] VITALS: BP 104/55
[2022-03-06] MEDS: LIDOCAINE 5% (LIDODERM) PATCH TD SCH ×2 (02:45→21:00)
[2022-03-06] MEDS ORDERED: NS 250 ML IV ONE (03:05)
[2022-03-06] MEDS ORDERED: VANCOMYCIN INTERMITTENT/PULSE DOSING BY CLINICAL PHARMACIST PER DOSING PROTOCOL XX SCH (04:15)
[2022-03-06] MEDS ORDERED: traMADol 50 MG TAB PO ONE (05:20)
[2022-03-06 06:00] VITALS: BP 102/56
[2022-03-06] MEDS: PIPERACILLIN/TAZOBACTAM SOD 2.25 GM in D5W MINI-BAG PLUS 50 ML IV SCH (06:19)
[2022-03-06] MEDS: SYMBICORT 160/4.5MCG INHALER 6GM INH SCH ×2 (06:26→19:45)
[2022-03-06] MEDS: ONDANSETRON 4MG 2ML VIAL IV PRN ×3 (06:40→17:59)
[2022-03-06] MEDS ORDERED: HEPARIN SOD (PORCINE) 5000UNITS/ML 1ML VIAL/SYRINGE PD ONE (06:50)
[2022-03-06 08:17] LABS: ALBUMIN 1.7 GM/DL (3.2-5.2); BILIRUBIN,TOTAL 0.8 MG/DL (0.2-1.0); CALCIUM LEVEL 7.9 MG/DL (8.8-10.2); CREATININE FOR GFR 9.65 MG/DL (0.70-1.30); GLOMERULAR FILTRATION RATE 5.8 (>49); MAGNESIUM LEVEL 1.6 MG/DL (1.8-2.4); PHOSPHORUS LEVEL 7.3 MG/DL (2.5-4.9); POTASSIUM SERUM 3.7 MEQ/L (3.5-5.1); TOTAL PROTEIN 5.2 GM/DL (6.4-8.2)
[2022-03-06] MEDS ORDERED: ASPIRIN 300 MG SUPP PR SCH (09:00)
[2022-03-06] MEDS: APIXABAN 5 MG TAB (ELIQUIS) PO SCH ×2 (09:03→21:56)
[2022-03-06] MEDS: PANTOPRAZOLE 40MG VIAL IV SCH (09:03)
[2022-03-06] MEDS: FLUTICASONE PROP 0.05% NASAL SPRAY 16 GM (FLONASE) NARES SCH (09:03)
[2022-03-06] MEDS ORDERED: SODIUM CHLORIDE 0.9% 1000ML IV ONE (11:15)
[2022-03-06] MEDS: (RENVELA) SEVELAMER **CARBONate** 800 MG TAB PO SCH ×3 (12:30→18:24)
[2022-03-06 13:39] LABS: SPEC. GRAVITY BODY FLUIDS 1.011 (NOT ESTABLISHED)
[2022-03-06] MEDS: SANTYL OINT 30GM TOP SCH (13:42)
[2022-03-06 13:52] LABS: APPEARANCE, BODY FLUID CLEAR (CLEAR); PERITONEAL DIALYSATE FL COLOR COLORLESS (COLORLESS); SOURCE, BODY FLUID PERITONEAL DIALYSATE
[2022-03-06 13:58] LABS: BASO # 0.1 10^3/uL (0.0-0.2); BASO % 0.3 % (0.0-1.0); EOS % 0.1 % (0.0-3.0); HEMATOCRIT 25.1 % (42.0-52.0); HEMOGLOBIN 7.9 g/dl (13.5-17.5); LYMPH % 5.6 % (24.0-44.0); MEAN CORPUSCULAR HEMOGLOBIN 27.7 pg (27.0-33.0); MEAN CORPUSCULAR HGB CONC 31.5 g/dl (32.0-36.5); MEAN CORPUSCULAR VOLUME 88.1 fl (80.0-96.0); MONO % 10.7 % (2.0-8.0); NEUTROPHILS # 14.9 10^3/uL (1.5-8.5); NEUTROPHILS % 81.9 % (36.0-66.0); PLATELET COUNT, AUTOMATED 122 10^3/uL (150-450); RED BLOOD COUNT 2.85 10^6/uL (4.30-6.10); WHITE BLOOD COUNT 18.2 10^3/uL (4.0-10.0)
[2022-03-06 14:00] VITALS: BP 109/59
[2022-03-06] MEDS ORDERED: PIPERACILLIN/TAZOBACTAM SOD 4.5 GM in D5W MINI-BAG PLUS 50 ML IV SCH (14:00)
[2022-03-06 15:05] LABS: SOURCE, BODY FLUID ALBUMIN PERITONEAL; SOURCE, BODY FLUID GLUCOSE PERITONEAL; SOURCE, BODY FLUID TOT PROTEIN PERITONEAL; TOTAL PROTEIN, BODY FLUID 0.3 G/DL (NOT ESTABLISHED)
[2022-03-06 15:13] LABS: MONO # 1.9 10^3/uL (0.0-0.8)
[2022-03-06] MEDS: TAMSULOSIN 0.4 MG CAP PO SCH (15:35)
[2022-03-06] MEDS ORDERED: HYDROMORPHONE HCL 0.5 MG/ 0.5 ML SYRINGE (J1170 PER 1) IV PRN (17:25)
[2022-03-06] MEDS: cefTRIAXone SOD 2 GM in D5W MINI-BAG PLUS 50 ML IV SCH (18:30)
[2022-03-06] MEDS ORDERED: SIMETHICONE 80MG CHEW TAB PO PRN (19:35)
[2022-03-06 20:00] VITALS: BP 110/59
[2022-03-06] MEDS ORDERED: METOPROLOL TART 50 MG TAB PO SCH (21:00)
[2022-03-07] MEDS: INSULIN LISPRO (NovoLOG) PER UNIT SC SCH ×5 (00:40→21:52)
[2022-03-07 06:00] VITALS: BP 129/62
[2022-03-07] MEDS ORDERED: IRON SUCROSE 100MG 5ML VIAL (J1756 PER 1MG) IV ONE (07:35)
[2022-03-07] MEDS: ASPIRIN 81MG ENTERIC TABLET PO SCH (08:00)
[2022-03-07] MEDS: SYMBICORT 160/4.5MCG INHALER 6GM INH SCH ×2 (08:00→20:00)
[2022-03-07] MEDS: CALCITRIOL 0.25 MCG CAP (S0169) PO SCH (08:00)
[2022-03-07] MEDS: APIXABAN 5 MG TAB (ELIQUIS) PO SCH ×2 (08:00→21:52)
[2022-03-07] MEDS: (RENVELA) SEVELAMER **CARBONate** 800 MG TAB PO SCH ×3 (08:00→17:43)
[2022-03-07] MEDS: LEVEMIR (INSULIN DETEMIR) 1 UNITS/0.01ML SC SCH ×2 (08:01→21:51)
[2022-03-07] MEDS: FLUTICASONE PROP 0.05% NASAL SPRAY 16 GM (FLONASE) NARES SCH ×2 (08:02→08:20)
[2022-03-07] MEDS: PANTOPRAZOLE 40MG VIAL IV SCH (08:02)
[2022-03-07] MEDS: VANICREAM MOISTURIZING SKIN CREAM 113GM TUBE TOP SCH (08:03)
[2022-03-07] MEDS: TAMSULOSIN 0.4 MG CAP PO SCH (08:04)
[2022-03-07] MEDS: SANTYL OINT 30GM TOP SCH (08:05)
[2022-03-07] MEDS ORDERED: HYDROMORPHONE HCL 0.5 MG/ 0.5 ML SYRINGE (J1170 PER 1) IV PRN ×3 (09:15→14:05)
[2022-03-07] MEDS ORDERED: IRON SUCROSE 25 MG in NS 23.75 ML IV ONE (10:00)
[2022-03-07] MEDS ORDERED: HYDROMORPHONE HCL 0.5 MG/ 0.5 ML SYRINGE (J1170 PER 1) IV ONE ×3 (10:15→10:40)
[2022-03-07] MEDS ORDERED: IRON SUCROSE 275 MG in NS 250 ML IV ONE (11:00)
[2022-03-07 14:00] VITALS: BP 143/75
[2022-03-07] MEDS: cefTRIAXone SOD 2 GM in D5W MINI-BAG PLUS 50 ML IV SCH (17:28)
[2022-03-07] MEDS ORDERED: NITROGLYCERIN 0.4 MG SUBL TABLET SL STA (18:11)
[2022-03-07 18:30] VITALS: BP 108/59
[2022-03-07 18:42] VITALS: BP 104/59
[2022-03-07 19:28] VITALS: BP 105/60
[2022-03-07] MEDS: LIDOCAINE 5% (LIDODERM) PATCH TD SCH (21:00)
[2022-03-07 22:15] VITALS: BP 105/58
[2022-03-07] MEDS: HYDROMORPHONE HCL 0.5 MG/ 0.5 ML SYRINGE (J1170 PER 1) IV PRN (23:48)
[2022-03-08] VITALS: BP 106/59
[2022-03-08 04:00] VITALS: BP 111/60
[2022-03-08] MEDS: INSULIN LISPRO (NovoLOG) PER UNIT SC SCH ×4 (07:30→23:06)
[2022-03-08 07:33] VITALS: BP 109/59
[2022-03-08] MEDS: SYMBICORT 160/4.5MCG INHALER 6GM INH SCH ×2 (08:00→20:00)
[2022-03-08] MEDS: (RENVELA) SEVELAMER **CARBONate** 800 MG TAB PO SCH ×3 (08:00→18:43)
[2022-03-08] MEDS: APIXABAN 5 MG TAB (ELIQUIS) PO SCH ×2 (09:00→21:28)
[2022-03-08] MEDS: ASPIRIN 81MG ENTERIC TABLET PO SCH (09:00)
[2022-03-08] MEDS: PANTOPRAZOLE 40MG VIAL IV SCH (09:11)
[2022-03-08] MEDS: TAMSULOSIN 0.4 MG CAP PO SCH (09:11)
[2022-03-08] MEDS: HYDROMORPHONE HCL 0.5 MG/ 0.5 ML SYRINGE (J1170 PER 1) IV PRN ×2 (09:11→12:35)
[2022-03-08] MEDS: LEVEMIR (INSULIN DETEMIR) 1 UNITS/0.01ML SC SCH ×2 (09:11→21:32)
[2022-03-08] MEDS: FLUTICASONE PROP 0.05% NASAL SPRAY 16 GM (FLONASE) NARES SCH (09:12)
[2022-03-08] MEDS: VANICREAM MOISTURIZING SKIN CREAM 113GM TUBE TOP SCH (09:12)
[2022-03-08 09:33] LABS: HEMATOCRIT 24.6 % (42.0-52.0); HEMOGLOBIN 7.9 g/dl (13.5-17.5); MEAN CORPUSCULAR HEMOGLOBIN 28.1 pg (27.0-33.0); MEAN CORPUSCULAR HGB CONC 32.1 g/dl (32.0-36.5); MEAN CORPUSCULAR VOLUME 87.5 fl (80.0-96.0); PLATELET COUNT, AUTOMATED 146 10^3/uL (150-450); RED BLOOD COUNT 2.81 10^6/uL (4.30-6.10); WHITE BLOOD COUNT 16.3 10^3/uL (4.0-10.0)
[2022-03-08 10:25] LABS: ALBUMIN 1.6 GM/DL (3.2-5.2); BILIRUBIN,TOTAL 0.3 MG/DL (0.2-1.0); CALCIUM LEVEL 7.7 MG/DL (8.8-10.2); CREATININE FOR GFR 8.76 MG/DL (0.70-1.30); GLOMERULAR FILTRATION RATE 6.5 (>49); POTASSIUM SERUM 3.4 MEQ/L (3.5-5.1); TOTAL PROTEIN 5.4 GM/DL (6.4-8.2)
[2022-03-08 12:30] VITALS: BP 99/54
[2022-03-08 12:59] LABS: APPEARANCE, BODY FLUID CLEAR (CLEAR); PERITONEAL DIALYSATE FL COLOR PALE YELLOW (COLORLESS); SOURCE, BODY FLUID PERITONEAL DIALYSATE
[2022-03-08] MEDS ORDERED: NS 500 ML IV SCH (13:20)
[2022-03-08] MEDS: SANTYL OINT 30GM TOP SCH (13:46)
[2022-03-08 16:00] VITALS: BP 111/64
[2022-03-08] MEDS: fentaNYL 100 MCG/2 ML INJECTION IV PRN (17:04)
[2022-03-08] MEDS: cefTRIAXone SOD 2 GM in D5W MINI-BAG PLUS 50 ML IV SCH (18:44)
[2022-03-08] MEDS: ACETAMINOPHEN TAB 650MG DOSE (2X325MG) PO PRN (19:50)
[2022-03-08 20:00] VITALS: BP 101/87
[2022-03-08] MEDS: LIDOCAINE 5% (LIDODERM) PATCH TD SCH (20:06)
[2022-03-09] VITALS (15 sets, daily range): BP systolic 92–114; BP diastolic 42–64; O2SAT 93–98
[2022-03-09] MEDS ORDERED: NS 1,000 ML IV SCH (01:10)
[2022-03-09] MEDS ORDERED: NS 500 ML IV SCH (01:39)
[2022-03-09] MEDS: ACETAMINOPHEN TAB 650MG DOSE (2X325MG) PO PRN ×3 (01:54→19:02)
[2022-03-09] MEDS ORDERED: NS 1,000 ML IV ONE (03:25)
[2022-03-09 05:52] LABS: HEMATOCRIT 21.4 % (42.0-52.0); MEAN CORPUSCULAR HEMOGLOBIN 28.3 pg (27.0-33.0); MEAN CORPUSCULAR HGB CONC 32.7 g/dl (32.0-36.5); MEAN CORPUSCULAR VOLUME 86.6 fl (80.0-96.0); PLATELET COUNT, AUTOMATED 136 10^3/uL (150-450); RED BLOOD COUNT 2.47 10^6/uL (4.30-6.10); WHITE BLOOD COUNT 11.9 10^3/uL (4.0-10.0)
[2022-03-09 06:37] LABS: C REACTIVE PROTEIN QUANTITATIV 15.1 MG/DL (0.00-0.30); CALCIUM LEVEL 7.1 MG/DL (8.8-10.2); CREATININE FOR GFR 8.2 MG/DL (0.70-1.30); POTASSIUM SERUM 3.4 MEQ/L (3.5-5.1)
[2022-03-09 06:49] LABS: ERYTHROCYTE SEDIMENTATION RATE 128 mm/hr (0-20)
[2022-03-09 06:55] LABS: BASOPHILS 1 % (0-1); LYMPHOCYTES 2 % (16-44); METAMYELOCYTES 2 % (0-0); MONOCYTES 7 % (0-5); MYELOCYTES 1 % (0-0); NEUTROPHILS 87 % (28-66); PLATELET ESTIMATE NORMAL (NORMAL)
[2022-03-09 06:56] LABS: OVALOCYTES 1+
[2022-03-09] MEDS: SYMBICORT 160/4.5MCG INHALER 6GM INH SCH ×2 (08:00→20:00)
[2022-03-09] MEDS: fentaNYL 100 MCG/2 ML INJECTION IV PRN ×2 (08:02→14:01)
[2022-03-09] MEDS: APIXABAN 5 MG TAB (ELIQUIS) PO SCH ×2 (08:59→21:02)
[2022-03-09] MEDS: TAMSULOSIN 0.4 MG CAP PO SCH (09:00)
[2022-03-09] MEDS: FLUTICASONE PROP 0.05% NASAL SPRAY 16 GM (FLONASE) NARES SCH (09:00)
[2022-03-09] MEDS: CALCITRIOL 0.25 MCG CAP (S0169) PO SCH (09:00)
[2022-03-09] MEDS: ASPIRIN 81MG ENTERIC TABLET PO SCH (09:00)
[2022-03-09] MEDS: (RENVELA) SEVELAMER **CARBONate** 800 MG TAB PO SCH ×3 (09:01→17:16)
[2022-03-09] MEDS: SANTYL OINT 30GM TOP SCH (09:04)
[2022-03-09] MEDS: VANICREAM MOISTURIZING SKIN CREAM 113GM TUBE TOP SCH (09:04)
[2022-03-09] MEDS: LEVEMIR (INSULIN DETEMIR) 1 UNITS/0.01ML SC SCH ×2 (09:23→21:02)
[2022-03-09] MEDS: PANTOPRAZOLE 40MG VIAL IV SCH (09:24)
[2022-03-09] MEDS: INSULIN LISPRO (NovoLOG) PER UNIT SC SCH ×4 (09:24→20:51)
[2022-03-09] MEDS ORDERED: LIDOCAINE 1% MDV 20ML VIAL As Ordered ONE (11:39)
[2022-03-09] MEDS: ALBUTEROL SULFATE 2.5 MG/0.5 ML INH NEB SOLN NEB PRN (12:22)
[2022-03-09 16:07] LABS: SOURCE, BODY FLUID PERITONEAL DIALYSATE
[2022-03-09 16:08] LABS: APPEARANCE, BODY FLUID CLEAR (CLEAR); PERITONEAL DIALYSATE FL COLOR COLORLESS (COLORLESS)
[2022-03-09] MEDS: POTASSIUM CHLORIDE 10MEQ SR TABLET PO SCH ×2 (17:16→21:02)
[2022-03-09] MEDS: cefTRIAXone SOD 2 GM in D5W MINI-BAG PLUS 50 ML IV SCH (17:16)
[2022-03-09] MEDS ORDERED: MOM 30ML SUSPENSION UDC PO PRN (17:50)
[2022-03-09] MEDS ORDERED: MOM 30ML SUSPENSION UDC PO ONE (17:50)
[2022-03-09] MEDS ORDERED: BISACODYL 10 MG SUPP PR PRN (17:50)
[2022-03-09] MEDS: LIDOCAINE 5% (LIDODERM) PATCH TD SCH (21:00)
[2022-03-09] MEDS: DOCUSATE SODIUM 100MG CAPSULE PO SCH (21:02)
[2022-03-09] MEDS: SODIUM CHLORIDE 0.9% INJ 10 ML SYR IV SCH (21:03)
[2022-03-10] VITALS (32 sets, daily range): BP systolic 93–136; BP diastolic 54–84; O2SAT 91–98
[2022-03-10] MEDS: methocarbamoL 500 MG TAB PO PRN ×2 (04:19→20:43)
[2022-03-10] MEDS: SYMBICORT 160/4.5MCG INHALER 6GM INH SCH ×2 (07:33→20:00)
[2022-03-10 07:37] LABS: HEMOGLOBIN 7.4 g/dl (13.5-17.5); MEAN CORPUSCULAR HEMOGLOBIN 28.1 pg (27.0-33.0); MEAN CORPUSCULAR HGB CONC 32.2 g/dl (32.0-36.5); MEAN CORPUSCULAR VOLUME 87.5 fl (80.0-96.0); PLATELET COUNT, AUTOMATED 165 10^3/uL (150-450); RED BLOOD COUNT 2.63 10^6/uL (4.30-6.10)
[2022-03-10 07:58] LABS: CREATININE FOR GFR 7.73 MG/DL (0.70-1.30); GLOMERULAR FILTRATION RATE 7.5 (>49); POTASSIUM SERUM 3.3 MEQ/L (3.5-5.1)
[2022-03-10 08:13] LABS: EOSINOPHILS 1 % (0-3); LYMPHOCYTES 8 % (16-44); METAMYELOCYTES 2 % (0-0); MONOCYTES 6 % (0-5); NEUTROPHILS 80 % (28-66)
[2022-03-10 08:14] LABS: PLATELET CLUMPS SMALL AMT; PLATELET ESTIMATE NORMAL (NORMAL)
[2022-03-10 08:20] LABS: APPEARANCE, BODY FLUID CLEAR (CLEAR); PERITONEAL DIALYSATE FL COLOR COLORLESS (COLORLESS); SOURCE, BODY FLUID PERITONEAL DIALYSATE
[2022-03-10] MEDS: ASPIRIN 81MG ENTERIC TABLET PO SCH (08:31)
[2022-03-10] MEDS: APIXABAN 5 MG TAB (ELIQUIS) PO SCH ×2 (08:31→20:43)
[2022-03-10] MEDS: POTASSIUM CHLORIDE 10MEQ SR TABLET PO SCH ×3 (08:31→20:43)
[2022-03-10] MEDS: TAMSULOSIN 0.4 MG CAP PO SCH (08:31)
[2022-03-10] MEDS: (RENVELA) SEVELAMER **CARBONate** 800 MG TAB PO SCH ×3 (08:32→18:25)
[2022-03-10] MEDS: DOCUSATE SODIUM 100MG CAPSULE PO SCH ×2 (08:32→20:43)
[2022-03-10] MEDS: LEVEMIR (INSULIN DETEMIR) 1 UNITS/0.01ML SC SCH ×2 (08:33→20:44)
[2022-03-10] MEDS: INSULIN LISPRO (NovoLOG) PER UNIT SC SCH ×4 (08:33→20:45)
[2022-03-10] MEDS: PANTOPRAZOLE 40MG VIAL IV SCH (08:36)
[2022-03-10] MEDS: fentaNYL 100 MCG/2 ML INJECTION IV PRN ×2 (08:36→14:43)
[2022-03-10] MEDS: FLUTICASONE PROP 0.05% NASAL SPRAY 16 GM (FLONASE) NARES SCH ×2 (08:37→08:49)
[2022-03-10] MEDS: SODIUM CHLORIDE 0.9% INJ 10 ML SYR IV SCH ×2 (08:37→20:44)
[2022-03-10] MEDS: VANICREAM MOISTURIZING SKIN CREAM 113GM TUBE TOP SCH (08:38)
[2022-03-10] MEDS: SANTYL OINT 30GM TOP SCH (08:38)
[2022-03-10] MEDS: ACETAMINOPHEN TAB 650MG DOSE (2X325MG) PO PRN ×2 (12:25→20:44)
[2022-03-10] MEDS: SODIUM CHLORIDE 0.9% INJ 10 ML SYR IV PRN (14:44)
[2022-03-10] MEDS ORDERED: ALPRAZolam 0.25 MG TAB PO ONE (17:00)
[2022-03-10] MEDS ORDERED: HEPARIN SOD (PORCINE) 5000UNITS/ML 1ML VIAL/SYRINGE PD ONE (18:00)
[2022-03-10] MEDS: cefTRIAXone SOD 2 GM in D5W MINI-BAG PLUS 50 ML IV SCH (18:24)
[2022-03-10] MEDS: LIDOCAINE 5% (LIDODERM) PATCH TD SCH (20:37)
[2022-03-10] MEDS: ALBUTEROL SULFATE 2.5 MG/0.5 ML INH NEB SOLN NEB PRN (22:05)
[2022-03-11] VITALS (39 sets, daily range): BP systolic 94–133; BP diastolic 55–68; O2SAT 92–96
[2022-03-11 06:59] LABS: HEMATOCRIT 24.4 % (42.0-52.0); HEMOGLOBIN 7.6 g/dl (13.5-17.5); MEAN CORPUSCULAR HEMOGLOBIN 27.7 pg (27.0-33.0); MEAN CORPUSCULAR HGB CONC 31.1 g/dl (32.0-36.5); MEAN CORPUSCULAR VOLUME 89.1 fl (80.0-96.0); PLATELET COUNT, AUTOMATED 194 10^3/uL (150-450); RED BLOOD COUNT 2.74 10^6/uL (4.30-6.10); WHITE BLOOD COUNT 13.4 10^3/uL (4.0-10.0)
[2022-03-11] MEDS: SYMBICORT 160/4.5MCG INHALER 6GM INH SCH ×2 (07:27→20:48)
[2022-03-11 07:46] LABS: EOSINOPHILS 3 % (0-3); LYMPHOCYTES 5 % (16-44); METAMYELOCYTES 2 % (0-0); MONOCYTES 5 % (0-5); MYELOCYTES 3 % (0-0); NEUTROPHILS 80 % (28-66)
[2022-03-11 07:47] LABS: CALCIUM LEVEL 8.1 MG/DL (8.8-10.2); CREATININE FOR GFR 6.97 MG/DL (0.70-1.30); GLOMERULAR FILTRATION RATE 8.4 (>49); POTASSIUM SERUM 3.4 MEQ/L (3.5-5.1)
[2022-03-11 07:49] LABS: PLATELET CLUMPS SMALL AMT; PLATELET ESTIMATE NORMAL (NORMAL); POLYCHROMASIA 1+; TEAR DROP CELLS 1+
[2022-03-11] MEDS: DOCUSATE SODIUM 100MG CAPSULE PO SCH ×2 (09:00→21:09)
[2022-03-11] MEDS: FLUTICASONE PROP 0.05% NASAL SPRAY 16 GM (FLONASE) NARES SCH (09:00)
[2022-03-11] MEDS: APIXABAN 5 MG TAB (ELIQUIS) PO SCH ×2 (09:08→21:10)
[2022-03-11] MEDS: (RENVELA) SEVELAMER **CARBONate** 800 MG TAB PO SCH ×3 (09:08→17:45)
[2022-03-11] MEDS: ASPIRIN 81MG ENTERIC TABLET PO SCH (09:08)
[2022-03-11] MEDS: POTASSIUM CHLORIDE 10MEQ SR TABLET PO SCH ×3 (09:08→21:10)
[2022-03-11] MEDS: TAMSULOSIN 0.4 MG CAP PO SCH (09:09)
[2022-03-11] MEDS: methocarbamoL 500 MG TAB PO PRN ×2 (09:09→15:18)
[2022-03-11] MEDS: PANTOPRAZOLE 40MG VIAL IV SCH (09:10)
[2022-03-11] MEDS: fentaNYL 100 MCG/2 ML INJECTION IV PRN ×2 (09:10→18:17)
[2022-03-11] MEDS: SODIUM CHLORIDE 0.9% INJ 10 ML SYR IV SCH ×2 (09:11→21:09)
[2022-03-11] MEDS: VANICREAM MOISTURIZING SKIN CREAM 113GM TUBE TOP SCH (09:12)
[2022-03-11] MEDS: SANTYL OINT 30GM TOP SCH (09:12)
[2022-03-11] MEDS: INSULIN LISPRO (NovoLOG) PER UNIT SC SCH ×4 (09:30→21:09)
[2022-03-11] MEDS: LEVEMIR (INSULIN DETEMIR) 1 UNITS/0.01ML SC SCH ×2 (09:30→21:08)
[2022-03-11] MEDS: BISOPROLOL FUM 2.5 MG PER 1/2TAB PO SCH (17:23)
[2022-03-11] MEDS: LIDOCAINE 5% (LIDODERM) PATCH TD SCH (21:00)
[2022-03-11] MEDS: cefTRIAXone SOD 2 GM in D5W MINI-BAG PLUS 50 ML IV SCH (21:07)
[2022-03-11] MEDS: ACETAMINOPHEN TAB 650MG DOSE (2X325MG) PO PRN (21:11)
[2022-03-12] VITALS (12 sets, daily range): BP systolic 108–132; BP diastolic 58–94; O2SAT 92–97
[2022-03-12] MEDS: fentaNYL 100 MCG/2 ML INJECTION IV PRN (03:14)
[2022-03-12] MEDS: SODIUM CHLORIDE 0.9% INJ 10 ML SYR IV PRN (03:15)
[2022-03-12 05:26] LABS: HEMATOCRIT 30.3 % (42.0-52.0); MEAN CORPUSCULAR HEMOGLOBIN 28.2 pg (27.0-33.0); MEAN CORPUSCULAR HGB CONC 31.7 g/dl (32.0-36.5); MEAN CORPUSCULAR VOLUME 89.1 fl (80.0-96.0); PLATELET COUNT, AUTOMATED 208 10^3/uL (150-450); WHITE BLOOD COUNT 17.1 10^3/uL (4.0-10.0)
[2022-03-12 05:32] LABS: HEMOGLOBIN 9.6 g/dl (13.5-17.5)
[2022-03-12 05:49] LABS: ATYPICAL LYMPH 1 % (0-5); EOSINOPHILS 4 % (0-3); LYMPHOCYTES 8 % (16-44); METAMYELOCYTES 1 % (0-0); MONOCYTES 7 % (0-5); MYELOCYTES 4 % (0-0); NEUTROPHILS 74 % (28-66)
[2022-03-12 05:50] LABS: PLATELET ESTIMATE NORMAL (NORMAL)
[2022-03-12 05:52] LABS: CALCIUM LEVEL 8.6 MG/DL (8.8-10.2); CREATININE FOR GFR 6.7 MG/DL (0.70-1.30); GLOMERULAR FILTRATION RATE 8.8 (>49); POTASSIUM SERUM 4.3 MEQ/L (3.5-5.1)
[2022-03-12] MEDS: SYMBICORT 160/4.5MCG INHALER 6GM INH SCH ×2 (07:13→18:08)
[2022-03-12] MEDS: INSULIN LISPRO (NovoLOG) PER UNIT SC SCH ×4 (08:23→20:31)
[2022-03-12] MEDS: PANTOPRAZOLE 40MG VIAL IV SCH (08:24)
[2022-03-12] MEDS: (RENVELA) SEVELAMER **CARBONate** 800 MG TAB PO SCH ×3 (08:24→17:59)
[2022-03-12] MEDS: DOCUSATE SODIUM 100MG CAPSULE PO SCH ×2 (08:24→20:31)
[2022-03-12] MEDS: ASPIRIN 81MG ENTERIC TABLET PO SCH (08:24)
[2022-03-12] MEDS: TAMSULOSIN 0.4 MG CAP PO SCH (08:24)
[2022-03-12] MEDS: LEVEMIR (INSULIN DETEMIR) 1 UNITS/0.01ML SC SCH ×2 (08:24→20:31)
[2022-03-12] MEDS: POTASSIUM CHLORIDE 10MEQ SR TABLET PO SCH ×3 (08:24→20:31)
[2022-03-12] MEDS: methocarbamoL 500 MG TAB PO PRN (08:24)
[2022-03-12] MEDS: APIXABAN 5 MG TAB (ELIQUIS) PO SCH ×2 (08:25→20:31)
[2022-03-12] MEDS: SODIUM CHLORIDE 0.9% INJ 10 ML SYR IV SCH ×2 (08:25→20:31)
[2022-03-12] MEDS: CALCITRIOL 0.25 MCG CAP (S0169) PO SCH (08:25)
[2022-03-12] MEDS: BISOPROLOL FUM 2.5 MG PER 1/2TAB PO SCH (08:25)
[2022-03-12] MEDS: FLUTICASONE PROP 0.05% NASAL SPRAY 16 GM (FLONASE) NARES SCH (08:26)
[2022-03-12] MEDS: SANTYL OINT 30GM TOP SCH (08:26)
[2022-03-12] MEDS: VANICREAM MOISTURIZING SKIN CREAM 113GM TUBE TOP SCH (08:27)
[2022-03-12] MEDS ORDERED: ALTEPLASE 2MG/2ML VIAL XX ONE ×2 (10:05→10:15)
[2022-03-12 14:09] LABS: CALCIUM LEVEL 8.5 MG/DL (8.8-10.2); CREATININE FOR GFR 6.59 MG/DL (0.70-1.30); POTASSIUM SERUM 3.8 MEQ/L (3.5-5.1)
[2022-03-12] MEDS: ALBUTEROL SULFATE 2.5 MG/0.5 ML INH NEB SOLN NEB PRN (14:35)
[2022-03-12 14:56] LABS: HEMATOCRIT 33.8 % (42.0-52.0); HEMOGLOBIN 10.7 g/dl (13.5-17.5); MEAN CORPUSCULAR HEMOGLOBIN 28.4 pg (27.0-33.0); MEAN CORPUSCULAR HGB CONC 31.7 g/dl (32.0-36.5); MEAN CORPUSCULAR VOLUME 89.7 fl (80.0-96.0); PLATELET COUNT, AUTOMATED 231 10^3/uL (150-450); RED BLOOD COUNT 3.77 10^6/uL (4.30-6.10); WHITE BLOOD COUNT 21.4 10^3/uL (4.0-10.0)
[2022-03-12] MEDS: PERCOCET 5MG/325MG TAB PO PRN (15:07)
[2022-03-12 16:25] LABS: C REACTIVE PROTEIN QUANTITATIV 10.8 MG/DL (0.00-0.30)
[2022-03-12] MEDS: cefTRIAXone SOD 2 GM in D5W MINI-BAG PLUS 50 ML IV SCH (17:59)
[2022-03-12] MEDS: LIDOCAINE 5% (LIDODERM) PATCH TD SCH (20:32)
[2022-03-13] VITALS: BP 90/53; O2SAT 96
[2022-03-13] MEDS: IPRATROPIUM 0.5MG/ALBUTEROL 2.5MG INH SOL UD 3ML (DUONEB) NEB SCH ×3 (00:58→16:31)
[2022-03-13 04:00] VITALS: BP 122/61; O2SAT 96
[2022-03-13 05:47] LABS: HEMATOCRIT 30.4 % (42.0-52.0); HEMOGLOBIN 9.4 g/dl (13.5-17.5); MEAN CORPUSCULAR HEMOGLOBIN 27.9 pg (27.0-33.0); MEAN CORPUSCULAR HGB CONC 30.9 g/dl (32.0-36.5); MEAN CORPUSCULAR VOLUME 90.2 fl (80.0-96.0); PLATELET COUNT, AUTOMATED 248 10^3/uL (150-450); RED BLOOD COUNT 3.37 10^6/uL (4.30-6.10); WHITE BLOOD COUNT 17.2 10^3/uL (4.0-10.0)
[2022-03-13 06:37] LABS: CALCIUM LEVEL 8.3 MG/DL (8.8-10.2); CREATININE FOR GFR 6.11 MG/DL (0.70-1.30); GLOMERULAR FILTRATION RATE 9.8 (>49); PHOSPHORUS LEVEL 4.8 MG/DL (2.5-4.9)
[2022-03-13] MEDS: PERCOCET 5MG/325MG TAB PO PRN ×2 (06:47→13:39)
[2022-03-13] MEDS: methocarbamoL 500 MG TAB PO PRN ×2 (06:48→17:17)
[2022-03-13 06:57] LABS: PTH INTACT 243.9 PG/ML (18.5-88.0)
[2022-03-13] MEDS: SYMBICORT 160/4.5MCG INHALER 6GM INH SCH ×2 (07:22→20:21)
[2022-03-13] MEDS: ONDANSETRON 4MG 2ML VIAL IV PRN (07:55)
[2022-03-13 07:56] LABS: ANISOCYTOSIS 1+; ATYPICAL LYMPH 1 % (0-5); EOSINOPHILS 3 % (0-3); LYMPHOCYTES 6 % (16-44); METAMYELOCYTES 2 % (0-0); MONOCYTES 6 % (0-5); MYELOCYTES 1 % (0-0); NEUTROPHILS 79 % (28-66); PLATELET ESTIMATE NORMAL (NORMAL)
[2022-03-13 07:58] LABS: TEAR DROP CELLS 1+
[2022-03-13 08:00] VITALS: BP 139/68
[2022-03-13] MEDS: FLUTICASONE PROP 0.05% NASAL SPRAY 16 GM (FLONASE) NARES SCH (09:00)
[2022-03-13] MEDS ORDERED: LEVEMIR (INSULIN DETEMIR) 1 UNITS/0.01ML SC SCH ×2 (09:00→21:00)
[2022-03-13] MEDS: INSULIN LISPRO (NovoLOG) PER UNIT SC SCH ×4 (09:05→21:23)
[2022-03-13] MEDS: (RENVELA) SEVELAMER **CARBONate** 800 MG TAB PO SCH ×3 (09:05→17:17)
[2022-03-13] MEDS: BISOPROLOL FUM 2.5 MG PER 1/2TAB PO SCH (10:42)
[2022-03-13] MEDS: POTASSIUM CHLORIDE 10MEQ SR TABLET PO SCH ×3 (10:44→21:22)
[2022-03-13] MEDS: ASPIRIN 81MG ENTERIC TABLET PO SCH (10:45)
[2022-03-13] MEDS: predniSONE 20 MG TAB PO SCH (10:46)
[2022-03-13] MEDS: DOCUSATE SODIUM 100MG CAPSULE PO SCH ×2 (10:46→21:22)
[2022-03-13] MEDS: TAMSULOSIN 0.4 MG CAP PO SCH (10:47)
[2022-03-13] MEDS: APIXABAN 5 MG TAB (ELIQUIS) PO SCH ×2 (10:47→21:22)
[2022-03-13] MEDS: PANTOPRAZOLE 40MG VIAL IV SCH (10:48)
[2022-03-13] MEDS: MIRALAX *UNIT DOSE* 17GM PACKET PO SCH (10:48)
[2022-03-13] MEDS: SODIUM CHLORIDE 0.9% INJ 10 ML SYR IV SCH ×2 (10:49→21:23)
[2022-03-13] MEDS: VANICREAM MOISTURIZING SKIN CREAM 113GM TUBE TOP SCH (10:50)
[2022-03-13] MEDS: SANTYL OINT 30GM TOP SCH (10:51)
[2022-03-13] MEDS: ANALGESIC BALM CRM 3OZ TOP SCH ×2 (10:53→21:23)
[2022-03-13 12:00] VITALS: BP 137/64
[2022-03-13] MEDS: DOXYCYCLINE HYCLATE 100MG TABLET PO SCH ×2 (12:54→21:22)
[2022-03-13 15:43] LABS: HEMOGLOBIN A1c 10.4 % (4.0-6.0)
[2022-03-13] MEDS: cefTRIAXone SOD 2 GM in D5W MINI-BAG PLUS 50 ML IV SCH (17:18)
[2022-03-13 19:00] VITALS: BP 142/68
[2022-03-13 20:29] LABS: C REACTIVE PROTEIN QUANTITATIV 8.2 MG/DL (<1.0)
[2022-03-13] MEDS: LIDOCAINE 5% (LIDODERM) PATCH TD SCH (21:00)
[2022-03-13 21:10] VITALS: BP 140/75
[2022-03-13] MEDS: LEVEMIR (INSULIN DETEMIR) 1 UNITS/0.01ML SC SCH (21:23)
[2022-03-14 06:00] VITALS: BP 141/74
[2022-03-14] MEDS ORDERED: HEPARIN SOD (PORCINE) 5000UNITS/ML 1ML VIAL/SYRINGE PD ONE (07:00)
[2022-03-14] MEDS: IPRATROPIUM 0.5MG/ALBUTEROL 2.5MG INH SOL UD 3ML (DUONEB) NEB SCH ×3 (08:00→15:46)
[2022-03-14 08:09] LABS: HEMATOCRIT 30.7 % (42.0-52.0); HEMOGLOBIN 9.5 g/dl (13.5-17.5); MEAN CORPUSCULAR HEMOGLOBIN 28.2 pg (27.0-33.0); MEAN CORPUSCULAR HGB CONC 30.9 g/dl (32.0-36.5); MEAN CORPUSCULAR VOLUME 91.1 fl (80.0-96.0); PLATELET COUNT, AUTOMATED 264 10^3/uL (150-450); RED BLOOD COUNT 3.37 10^6/uL (4.30-6.10); WHITE BLOOD COUNT 17.7 10^3/uL (4.0-10.0)
[2022-03-14] MEDS: SYMBICORT 160/4.5MCG INHALER 6GM INH SCH ×2 (08:27→20:28)
[2022-03-14 08:31] LABS: CALCIUM LEVEL 8.6 MG/DL (8.3-10.6); CREATININE FOR GFR 5.43 MG/DL (0.70-1.30); GLOMERULAR FILTRATION RATE 11.3 (>49); MAGNESIUM LEVEL 1.7 MG/DL (1.8-2.4); POTASSIUM SERUM 4.8 MMOL/L (3.5-5.1)
[2022-03-14] MEDS: CALCITRIOL 0.25 MCG CAP (S0169) PO SCH (08:42)
[2022-03-14] MEDS: (RENVELA) SEVELAMER **CARBONate** 800 MG TAB PO SCH ×3 (08:42→17:43)
[2022-03-14] MEDS: predniSONE 20 MG TAB PO SCH (08:43)
[2022-03-14] MEDS: TAMSULOSIN 0.4 MG CAP PO SCH (08:43)
[2022-03-14] MEDS: POTASSIUM CHLORIDE 10MEQ SR TABLET PO SCH ×3 (08:43→23:07)
[2022-03-14] MEDS: DOCUSATE SODIUM 100MG CAPSULE PO SCH ×2 (08:43→23:04)
[2022-03-14] MEDS: APIXABAN 5 MG TAB (ELIQUIS) PO SCH ×2 (08:43→23:04)
[2022-03-14] MEDS: DOXYCYCLINE HYCLATE 100MG TABLET PO SCH (08:45)
[2022-03-14] MEDS: MIRALAX *UNIT DOSE* 17GM PACKET PO SCH ×2 (08:45→09:00)
[2022-03-14] MEDS: BISOPROLOL FUM 2.5 MG PER 1/2TAB PO SCH (08:45)
[2022-03-14] MEDS: ASPIRIN 81MG ENTERIC TABLET PO SCH (08:45)
[2022-03-14] MEDS: SODIUM CHLORIDE 0.9% INJ 10 ML SYR IV SCH ×2 (08:46→23:08)
[2022-03-14] MEDS: INSULIN LISPRO (NovoLOG) PER UNIT SC SCH ×4 (08:47→23:07)
[2022-03-14] MEDS: LEVEMIR (INSULIN DETEMIR) 1 UNITS/0.01ML SC SCH ×2 (08:47→23:08)
[2022-03-14] MEDS: PANTOPRAZOLE 40MG VIAL IV SCH (08:47)
[2022-03-14] MEDS: FLUTICASONE PROP 0.05% NASAL SPRAY 16 GM (FLONASE) NARES SCH ×2 (08:54→09:00)
[2022-03-14] MEDS: ANALGESIC BALM CRM 3OZ TOP SCH ×2 (08:54→23:09)
[2022-03-14] MEDS: VANICREAM MOISTURIZING SKIN CREAM 113GM TUBE TOP SCH (08:55)
[2022-03-14] MEDS: SANTYL OINT 30GM TOP SCH (08:55)
[2022-03-14 09:01] LABS: LYMPHOCYTES 6 % (16-44); METAMYELOCYTES 5 % (0-0); MONOCYTES 3 % (0-5); MYELOCYTES 2 % (0-0); NEUTROPHILS 79 % (28-66); PLATELET CLUMPS SMALL AMT; PLATELET ESTIMATE NORMAL (NORMAL)
[2022-03-14 09:02] LABS: ANISOCYTOSIS 1+; HYPOCHROMASIA 1+
[2022-03-14] MEDS ORDERED: MAG SULF 1GM/100ML (MAG RUN) 1 GM in IV 1 EA IV ONE (11:00)
[2022-03-14] MEDS: TORSEMIDE 100 MG TAB PO SCH ×2 (11:19→17:43)
[2022-03-14] MEDS: OMEPRAZOLE 20MG CAP PO SCH ×2 (11:20→23:07)
[2022-03-14] MEDS: SODIUM CHLORIDE 0.9% INJ 10 ML SYR IV PRN ×2 (12:37→18:10)
[2022-03-14] MEDS: methocarbamoL 500 MG TAB PO PRN (14:16)
[2022-03-14] MEDS: BACITRACIN OINTMENT 30GM TUBE TOP SCH (14:17)
[2022-03-14] MEDS: PERCOCET 5MG/325MG TAB PO PRN ×2 (14:17→23:10)
[2022-03-14] MEDS ORDERED: VANCOMYCIN INTERMITTENT/PULSE DOSING BY CLINICAL PHARMACIST PER DOSING PROTOCOL XX SCH (14:25)
[2022-03-14] MEDS ORDERED: VANCOMYCIN HCL 1,000 MG, VIAL MATE ADAPTER 1 EACH in NS 250 ML IV ONE ×2 (15:00→16:00)
[2022-03-14 17:07] LABS: Size <1 mm (.)
[2022-03-14 17:44] VITALS: BP 132/64
[2022-03-14 21:49] VITALS: BP 149/84
[2022-03-14] MEDS: LIDOCAINE 5% (LIDODERM) PATCH TD SCH (22:32)
[2022-03-14] MEDS: ATORVASTATIN 20 MG TAB PO SCH (23:06)
[2022-03-14] MEDS: MONTELUKAST 10 MG TAB PO SCH (23:07)
[2022-03-15] MEDS: methocarbamoL 500 MG TAB PO PRN ×2 (00:24→20:04)
[2022-03-15 05:31] VITALS: BP 161/83
[2022-03-15 06:07] LABS: HEMOGLOBIN 8.6 g/dl (13.5-17.5); MEAN CORPUSCULAR HEMOGLOBIN 28.6 pg (27.0-33.0); MEAN CORPUSCULAR HGB CONC 31.9 g/dl (32.0-36.5); MEAN CORPUSCULAR VOLUME 89.7 fl (80.0-96.0); PLATELET COUNT, AUTOMATED 223 10^3/uL (150-450); RED BLOOD COUNT 3.01 10^6/uL (4.30-6.10); WHITE BLOOD COUNT 16.2 10^3/uL (4.0-10.0)
[2022-03-15 07:33] LABS: CREATININE FOR GFR 5.2 MG/DL (0.70-1.30); GLOMERULAR FILTRATION RATE 11.8 (>49); MAGNESIUM LEVEL 1.9 MG/DL (1.8-2.4); POTASSIUM SERUM 5.1 MMOL/L (3.5-5.1); VANCOMYCIN RANDOM 18.7 UG/ML
[2022-03-15] MEDS: SYMBICORT 160/4.5MCG INHALER 6GM INH SCH ×2 (07:41→20:01)
[2022-03-15] MEDS: IPRATROPIUM 0.5MG/ALBUTEROL 2.5MG INH SOL UD 3ML (DUONEB) NEB SCH ×5 (07:42→23:45)
[2022-03-15 07:46] LABS: ANISOCYTOSIS 1+; EOSINOPHILS 1 % (0-3); LYMPHOCYTES 6 % (16-44); METAMYELOCYTES 1 % (0-0); MONOCYTES 5 % (0-5); MYELOCYTES 3 % (0-0); NEUTROPHILS 82 % (28-66); PLATELET ESTIMATE NORMAL (NORMAL)
[2022-03-15] MEDS: MIRALAX *UNIT DOSE* 17GM PACKET PO SCH (08:27)
[2022-03-15] MEDS: SODIUM CHLORIDE 0.9% INJ 10 ML SYR IV PRN (08:27)
[2022-03-15] MEDS: LEVEMIR (INSULIN DETEMIR) 1 UNITS/0.01ML SC SCH ×2 (08:28→20:02)
[2022-03-15] MEDS: INSULIN LISPRO (NovoLOG) PER UNIT SC SCH ×4 (08:29→20:03)
[2022-03-15] MEDS: ASPIRIN 81MG ENTERIC TABLET PO SCH (08:29)
[2022-03-15] MEDS: (RENVELA) SEVELAMER **CARBONate** 800 MG TAB PO SCH ×3 (08:29→17:28)
[2022-03-15] MEDS: DOCUSATE SODIUM 100MG CAPSULE PO SCH ×2 (08:29→20:01)
[2022-03-15] MEDS: OMEPRAZOLE 20MG CAP PO SCH ×2 (08:29→20:03)
[2022-03-15] MEDS: BACITRACIN OINTMENT 30GM TUBE TOP SCH (08:31)
[2022-03-15] MEDS: VANICREAM MOISTURIZING SKIN CREAM 113GM TUBE TOP SCH (08:31)
[2022-03-15] MEDS: SANTYL OINT 30GM TOP SCH (08:32)
[2022-03-15] MEDS: SODIUM CHLORIDE 0.9% INJ 10 ML SYR IV SCH ×2 (08:34→20:03)
[2022-03-15] MEDS: ANALGESIC BALM CRM 3OZ TOP SCH ×2 (08:35→20:04)
[2022-03-15 08:45] VITALS: BP 145/68
[2022-03-15] MEDS: TAMSULOSIN 0.4 MG CAP PO SCH (09:00)
[2022-03-15] MEDS: FLUTICASONE PROP 0.05% NASAL SPRAY 16 GM (FLONASE) NARES SCH (09:00)
[2022-03-15] MEDS: BISOPROLOL FUM 2.5 MG PER 1/2TAB PO SCH (09:49)
[2022-03-15] MEDS: APIXABAN 5 MG TAB (ELIQUIS) PO SCH ×2 (09:50→20:01)
[2022-03-15] MEDS: TORSEMIDE 100 MG TAB PO SCH ×2 (09:50→17:28)
[2022-03-15] MEDS: POTASSIUM CHLORIDE 10MEQ SR TABLET PO SCH (09:52)
[2022-03-15] MEDS ORDERED: HEPARIN SOD (PORCINE) 5000UNITS/ML 1ML VIAL/SYRINGE PD ONE ×2 (10:00)
[2022-03-15] MEDS: MONTELUKAST 10 MG TAB PO SCH (20:01)
[2022-03-15] MEDS: ATORVASTATIN 20 MG TAB PO SCH (20:01)
[2022-03-15] MEDS: PERCOCET 5MG/325MG TAB PO PRN (20:02)
[2022-03-15] MEDS: LIDOCAINE 5% (LIDODERM) PATCH TD SCH (20:03)
[2022-03-16] MEDS ORDERED: IPRATROPIUM 0.5MG/ALBUTEROL 2.5MG INH SOL UD 3ML (DUONEB) NEB PRN (02:45)
[2022-03-16] MEDS: PERCOCET 5MG/325MG TAB PO PRN ×3 (02:47→20:39)
[2022-03-16] MEDS: IPRATROPIUM 0.5MG/ALBUTEROL 2.5MG INH SOL UD 3ML (DUONEB) NEB SCH ×4 (02:58→23:19)
[2022-03-16 05:41] VITALS: BP 153/81
[2022-03-16] MEDS: methocarbamoL 500 MG TAB PO PRN ×2 (05:57→23:28)
[2022-03-16 06:01] LABS: HEMATOCRIT 28.8 % (42.0-52.0); HEMOGLOBIN 8.9 g/dl (13.5-17.5); MEAN CORPUSCULAR HEMOGLOBIN 28.1 pg (27.0-33.0); MEAN CORPUSCULAR HGB CONC 30.9 g/dl (32.0-36.5); MEAN CORPUSCULAR VOLUME 90.9 fl (80.0-96.0); PLATELET COUNT, AUTOMATED 230 10^3/uL (150-450); RED BLOOD COUNT 3.17 10^6/uL (4.30-6.10); WHITE BLOOD COUNT 17.9 10^3/uL (4.0-10.0)
[2022-03-16] MEDS: SYMBICORT 160/4.5MCG INHALER 6GM INH SCH ×2 (06:18→19:30)
[2022-03-16 06:47] LABS: CALCIUM LEVEL 8.8 MG/DL (8.3-10.6); CREATININE FOR GFR 5.03 MG/DL (0.70-1.30); GLOMERULAR FILTRATION RATE 12.3 (>49); MAGNESIUM LEVEL 1.7 MG/DL (1.8-2.4); POTASSIUM SERUM 4.7 MMOL/L (3.5-5.1); VANCOMYCIN RANDOM 15.4 UG/ML
[2022-03-16] MEDS ORDERED: MAG SULF 1GM/100ML (MAG RUN) 1 GM in IV 1 EA IV ONE (07:05)
[2022-03-16 07:36] LABS: ATYPICAL LYMPH 1 % (0-5); LYMPHOCYTES 6 % (16-44); METAMYELOCYTES 2 % (0-0); MONOCYTES 5 % (0-5); MYELOCYTES 2 % (0-0); NEUTROPHILS 84 % (28-66)
[2022-03-16 07:37] LABS: ANISOCYTOSIS 1+; PLATELET ESTIMATE NORMAL (NORMAL)
[2022-03-16] MEDS: MIRALAX *UNIT DOSE* 17GM PACKET PO SCH (09:00)
[2022-03-16] MEDS: LEVEMIR (INSULIN DETEMIR) 1 UNITS/0.01ML SC SCH ×2 (09:12→20:39)
[2022-03-16] MEDS: DOCUSATE SODIUM 100MG CAPSULE PO SCH ×2 (09:12→20:38)
[2022-03-16] MEDS: (RENVELA) SEVELAMER **CARBONate** 800 MG TAB PO SCH ×3 (09:12→17:41)
[2022-03-16] MEDS: ACETAMINOPHEN TAB 650MG DOSE (2X325MG) PO PRN ×2 (09:13→23:28)
[2022-03-16] MEDS: ASPIRIN 81MG ENTERIC TABLET PO SCH (09:13)
[2022-03-16] MEDS: TORSEMIDE 100 MG TAB PO SCH ×2 (09:14→17:40)
[2022-03-16] MEDS: OMEPRAZOLE 20MG CAP PO SCH ×2 (09:14→20:38)
[2022-03-16] MEDS: TAMSULOSIN 0.4 MG CAP PO SCH (09:14)
[2022-03-16] MEDS: CALCITRIOL 0.25 MCG CAP (S0169) PO SCH (09:14)
[2022-03-16] MEDS: INSULIN LISPRO (NovoLOG) PER UNIT SC SCH ×4 (09:14→20:39)
[2022-03-16] MEDS: APIXABAN 5 MG TAB (ELIQUIS) PO SCH ×2 (09:15→20:38)
[2022-03-16] MEDS: BISOPROLOL FUM 2.5 MG PER 1/2TAB PO SCH (09:17)
[2022-03-16] MEDS: SODIUM CHLORIDE 0.9% INJ 10 ML SYR IV SCH ×2 (09:17→20:43)
[2022-03-16] MEDS: FLUTICASONE PROP 0.05% NASAL SPRAY 16 GM (FLONASE) NARES SCH (09:18)
[2022-03-16] MEDS: VANICREAM MOISTURIZING SKIN CREAM 113GM TUBE TOP SCH (09:19)
[2022-03-16] MEDS: BACITRACIN OINTMENT 30GM TUBE TOP SCH (09:19)
[2022-03-16] MEDS: ANALGESIC BALM CRM 3OZ TOP SCH ×2 (09:21→20:38)
[2022-03-16] MEDS: LIDOCAINE 5% (LIDODERM) PATCH TD SCH ×2 (09:22→20:44)
[2022-03-16] MEDS: SANTYL OINT 30GM TOP SCH (10:43)
[2022-03-16] MEDS: cefTRIAXone SOD 2 GM in D5W MINI-BAG PLUS 50 ML IV SCH (11:56)
[2022-03-16] MEDS: SODIUM CHLORIDE 0.9% INJ 10 ML SYR IV PRN (12:57)
[2022-03-16] MEDS: MONTELUKAST 10 MG TAB PO SCH (20:38)
[2022-03-16] MEDS: ATORVASTATIN 20 MG TAB PO SCH (20:38)
[2022-03-17] MEDS: SODIUM CHLORIDE 0.9% INJ 10 ML SYR IV PRN (00:30)
[2022-03-17] MEDS: ONDANSETRON 4MG 2ML VIAL IV PRN (00:30)
[2022-03-17 05:55] VITALS: BP 141/75
[2022-03-17 07:11] LABS: HEMATOCRIT 30.6 % (42.0-52.0); HEMOGLOBIN 9.4 g/dl (13.5-17.5); MEAN CORPUSCULAR HEMOGLOBIN 28.1 pg (27.0-33.0); MEAN CORPUSCULAR HGB CONC 30.7 g/dl (32.0-36.5); MEAN CORPUSCULAR VOLUME 91.6 fl (80.0-96.0); PLATELET COUNT, AUTOMATED 219 10^3/uL (150-450); RED BLOOD COUNT 3.34 10^6/uL (4.30-6.10); WHITE BLOOD COUNT 16.2 10^3/uL (4.0-10.0)
[2022-03-17 07:35] LABS: C REACTIVE PROTEIN QUANTITATIV 2.7 MG/DL (<1.0); CREATININE FOR GFR 4.96 MG/DL (0.70-1.30); GLOMERULAR FILTRATION RATE 12.5 (>49); MAGNESIUM LEVEL 1.7 MG/DL (1.8-2.4); POTASSIUM SERUM 4.8 MMOL/L (3.5-5.1)
[2022-03-17 07:45] LABS: EOSINOPHILS 1 % (0-3); LYMPHOCYTES 11 % (16-44); MONOCYTES 4 % (0-5); MYELOCYTES 1 % (0-0); NEUTROPHILS 80 % (28-66)
[2022-03-17 07:49] LABS: PLATELET CLUMPS SMALL AMT; PLATELET ESTIMATE NORMAL (NORMAL); TEAR DROP CELLS 1+
[2022-03-17 07:50] LABS: ANISOCYTOSIS 1+
[2022-03-17] MEDS: IPRATROPIUM 0.5MG/ALBUTEROL 2.5MG INH SOL UD 3ML (DUONEB) NEB SCH ×3 (08:00→23:59)
[2022-03-17] MEDS: SYMBICORT 160/4.5MCG INHALER 6GM INH SCH ×2 (08:22→20:25)
[2022-03-17] MEDS: (RENVELA) SEVELAMER **CARBONate** 800 MG TAB PO SCH ×3 (08:53→18:00)
[2022-03-17] MEDS: APIXABAN 5 MG TAB (ELIQUIS) PO SCH ×2 (08:53→22:41)
[2022-03-17] MEDS: LEVEMIR (INSULIN DETEMIR) 1 UNITS/0.01ML SC SCH ×2 (08:54→22:43)
[2022-03-17] MEDS: INSULIN LISPRO (NovoLOG) PER UNIT SC SCH ×4 (08:54→22:42)
[2022-03-17] MEDS: TAMSULOSIN 0.4 MG CAP PO SCH (08:54)
[2022-03-17] MEDS: DOCUSATE SODIUM 100MG CAPSULE PO SCH ×2 (08:55→22:41)
[2022-03-17] MEDS: MIRALAX *UNIT DOSE* 17GM PACKET PO SCH (08:55)
[2022-03-17] MEDS: OMEPRAZOLE 20MG CAP PO SCH ×2 (08:55→22:41)
[2022-03-17] MEDS: ASPIRIN 81MG ENTERIC TABLET PO SCH (08:55)
[2022-03-17] MEDS: TORSEMIDE 100 MG TAB PO SCH ×2 (08:55→18:28)
[2022-03-17] MEDS: BISOPROLOL FUM 2.5 MG PER 1/2TAB PO SCH (08:55)
[2022-03-17] MEDS: SODIUM CHLORIDE 0.9% INJ 10 ML SYR IV SCH ×2 (08:56→22:43)
[2022-03-17] MEDS: ANALGESIC BALM CRM 3OZ TOP SCH ×2 (08:57→22:43)
[2022-03-17] MEDS: FLUTICASONE PROP 0.05% NASAL SPRAY 16 GM (FLONASE) NARES SCH (08:57)
[2022-03-17] MEDS: PERCOCET 5MG/325MG TAB PO PRN ×3 (08:58→22:41)
[2022-03-17] MEDS: VANICREAM MOISTURIZING SKIN CREAM 113GM TUBE TOP SCH (09:01)
[2022-03-17] MEDS: SANTYL OINT 30GM TOP SCH (09:01)
[2022-03-17] MEDS: BACITRACIN OINTMENT 30GM TUBE TOP SCH (09:06)
[2022-03-17] MEDS ORDERED: HEPARIN SOD (PORCINE) 5000UNITS/ML 1ML VIAL/SYRINGE PD ONE (10:00)
[2022-03-17] MEDS: cefTRIAXone SOD 2 GM in D5W MINI-BAG PLUS 50 ML IV SCH (10:29)
[2022-03-17] MEDS: methocarbamoL 500 MG TAB PO PRN ×2 (11:38→22:41)
[2022-03-17 12:18] LABS: SOURCE, BODY FLUID PERITONEAL DIALYSATE
[2022-03-17 12:19] LABS: APPEARANCE, BODY FLUID CLEAR (CLEAR); PERITONEAL DIALYSATE FL COLOR COLORLESS (COLORLESS)
[2022-03-17] MEDS: SENNA 8.6 MG TAB (SENOKOT) PO PRN (15:33)
[2022-03-17] MEDS ORDERED: MAG SULF 1GM/100ML (MAG RUN) 1 GM in IV 1 EA IV ONE (21:00)
[2022-03-17] MEDS: LIDOCAINE 5% (LIDODERM) PATCH TD SCH (22:15)
[2022-03-17] MEDS: ATORVASTATIN 20 MG TAB PO SCH (22:41)
[2022-03-17] MEDS: MONTELUKAST 10 MG TAB PO SCH (22:41)
[2022-03-18] MEDS: SODIUM CHLORIDE 0.9% INJ 10 ML SYR IV PRN ×3 (00:13→06:57)
[2022-03-18 05:41] VITALS: BP 132/78
[2022-03-18] MEDS: ONDANSETRON 4MG 2ML VIAL IV PRN ×2 (06:57→18:30)
[2022-03-18] MEDS: PERCOCET 5MG/325MG TAB PO PRN ×2 (06:57→17:01)
[2022-03-18 07:50] LABS: HEMOGLOBIN 9.7 g/dl (13.5-17.5); MEAN CORPUSCULAR HEMOGLOBIN 27.9 pg (27.0-33.0); MEAN CORPUSCULAR HGB CONC 30.3 g/dl (32.0-36.5); PLATELET COUNT, AUTOMATED 221 10^3/uL (150-450); RED BLOOD COUNT 3.48 10^6/uL (4.30-6.10); WHITE BLOOD COUNT 18.6 10^3/uL (4.0-10.0)
[2022-03-18] MEDS: (RENVELA) SEVELAMER **CARBONate** 800 MG TAB PO SCH ×3 (08:00→18:16)
[2022-03-18] MEDS: IPRATROPIUM 0.5MG/ALBUTEROL 2.5MG INH SOL UD 3ML (DUONEB) NEB SCH ×3 (08:00→23:22)
[2022-03-18] MEDS: SYMBICORT 160/4.5MCG INHALER 6GM INH SCH ×2 (08:07→18:22)
[2022-03-18 08:11] LABS: CALCIUM LEVEL 8.4 MG/DL (8.3-10.6); CREATININE FOR GFR 5.18 MG/DL (0.70-1.30); GLOMERULAR FILTRATION RATE 11.9 (>49); MAGNESIUM LEVEL 1.9 MG/DL (1.8-2.4); POTASSIUM SERUM 4.6 MMOL/L (3.5-5.1)
[2022-03-18 08:17] LABS: BASOPHILS 1 % (0-1); LYMPHOCYTES 2 % (16-44); METAMYELOCYTES 2 % (0-0); MONOCYTES 7 % (0-5); MYELOCYTES 1 % (0-0); NEUTROPHILS 87 % (28-66)
[2022-03-18 08:19] LABS: ANISOCYTOSIS 1+; PLATELET CLUMPS SMALL AMT; PLATELET ESTIMATE NORMAL (NORMAL); POLYCHROMASIA 1+; TEAR DROP CELLS 1+
[2022-03-18] MEDS: cefTRIAXone SOD 2 GM in D5W MINI-BAG PLUS 50 ML IV SCH (10:36)
[2022-03-18] MEDS: INSULIN LISPRO (NovoLOG) PER UNIT SC SCH ×4 (10:37→22:08)
[2022-03-18] MEDS: SODIUM CHLORIDE 0.9% INJ 10 ML SYR IV SCH ×2 (10:38→22:06)
[2022-03-18] MEDS: LEVEMIR (INSULIN DETEMIR) 1 UNITS/0.01ML SC SCH ×2 (10:38→22:09)
[2022-03-18] MEDS: OMEPRAZOLE 20MG CAP PO SCH ×2 (10:38→22:07)
[2022-03-18] MEDS: APIXABAN 5 MG TAB (ELIQUIS) PO SCH ×2 (10:39→22:07)
[2022-03-18] MEDS: TORSEMIDE 100 MG TAB PO SCH ×2 (10:39→18:16)
[2022-03-18] MEDS: MIRALAX *UNIT DOSE* 17GM PACKET PO SCH (10:39)
[2022-03-18] MEDS: TAMSULOSIN 0.4 MG CAP PO SCH (10:39)
[2022-03-18] MEDS: SENNA 8.6 MG TAB (SENOKOT) PO PRN (10:39)
[2022-03-18] MEDS: DOCUSATE SODIUM 100MG CAPSULE PO SCH ×2 (10:39→22:06)
[2022-03-18] MEDS: SANTYL OINT 30GM TOP SCH (10:39)
[2022-03-18] MEDS: ASPIRIN 81MG ENTERIC TABLET PO SCH (10:39)
[2022-03-18] MEDS: BISOPROLOL FUM 2.5 MG PER 1/2TAB PO SCH (10:40)
[2022-03-18] MEDS: FLUTICASONE PROP 0.05% NASAL SPRAY 16 GM (FLONASE) NARES SCH (10:40)
[2022-03-18] MEDS: BACITRACIN OINTMENT 30GM TUBE TOP SCH (10:40)
[2022-03-18] MEDS: ANALGESIC BALM CRM 3OZ TOP SCH ×2 (10:41→22:09)
[2022-03-18] MEDS: VANICREAM MOISTURIZING SKIN CREAM 113GM TUBE TOP SCH (10:42)
[2022-03-18] MEDS: FLEET ENEMA PR PRN (16:24)
[2022-03-18] MEDS: methocarbamoL 500 MG TAB PO PRN (16:54)
[2022-03-18] MEDS ORDERED: methocarbamoL 500 MG TAB PO ONE (18:40)
[2022-03-18] MEDS: LIDOCAINE 5% (LIDODERM) PATCH TD SCH (21:00)
[2022-03-18] MEDS: ATORVASTATIN 20 MG TAB PO SCH (22:07)
[2022-03-18] MEDS: MONTELUKAST 10 MG TAB PO SCH (22:07)
[2022-03-18] MEDS ORDERED: HEPARIN SOD (PORCINE) 5000UNITS/ML 1ML VIAL/SYRINGE PD ONE (23:00)
[2022-03-19 06:00] VITALS: BP 108/60
[2022-03-19 06:10] LABS: BASO # 0.1 10^3/uL (0.0-0.2); BASO % 0.5 % (0.0-1.0); EOS # 0.1 10^3/uL (0.0-0.5); EOS % 0.6 % (0.0-3.0); HEMATOCRIT 29.5 % (42.0-52.0); HEMOGLOBIN 9.1 g/dl (13.5-17.5); LYMPH # 1.3 10^3/uL (1.5-5.0); LYMPH % 7.1 % (24.0-44.0); MEAN CORPUSCULAR HEMOGLOBIN 28.5 pg (27.0-33.0); MEAN CORPUSCULAR HGB CONC 30.8 g/dl (32.0-36.5); MEAN CORPUSCULAR VOLUME 92.5 fl (80.0-96.0); MONO # 1.3 10^3/uL (0.0-0.8); MONO % 7.5 % (2.0-8.0); NEUTROPHILS # 14.4 10^3/uL (1.5-8.5); NEUTROPHILS % 81.6 % (36.0-66.0); PLATELET COUNT, AUTOMATED 201 10^3/uL (150-450); RED BLOOD COUNT 3.19 10^6/uL (4.30-6.10); WHITE BLOOD COUNT 17.6 10^3/uL (4.0-10.0)
[2022-03-19 06:31] LABS: CALCIUM LEVEL 7.9 MG/DL (8.3-10.6); CREATININE FOR GFR 5.47 MG/DL (0.70-1.30); GLOMERULAR FILTRATION RATE 11.2 (>49); MAGNESIUM LEVEL 1.8 MG/DL (1.8-2.4); POTASSIUM SERUM 4.5 MMOL/L (3.5-5.1)
[2022-03-19] MEDS: PERCOCET 5MG/325MG TAB PO PRN (07:12)
[2022-03-19] MEDS: IPRATROPIUM 0.5MG/ALBUTEROL 2.5MG INH SOL UD 3ML (DUONEB) NEB SCH ×2 (08:00→15:08)
[2022-03-19] MEDS: SYMBICORT 160/4.5MCG INHALER 6GM INH SCH ×2 (08:06→19:51)
[2022-03-19] MEDS: BACITRACIN OINTMENT 30GM TUBE TOP SCH ×2 (10:15→10:23)
[2022-03-19] MEDS: FLUTICASONE PROP 0.05% NASAL SPRAY 16 GM (FLONASE) NARES SCH ×2 (10:15→10:23)
[2022-03-19] MEDS: VANICREAM MOISTURIZING SKIN CREAM 113GM TUBE TOP SCH ×2 (10:15→10:23)
[2022-03-19] MEDS: ANALGESIC BALM CRM 3OZ TOP SCH ×3 (10:16→21:00)
[2022-03-19] MEDS: SANTYL OINT 30GM TOP SCH ×2 (10:19→10:23)
[2022-03-19] MEDS: cefTRIAXone SOD 2 GM in D5W MINI-BAG PLUS 50 ML IV SCH ×2 (10:19→10:22)
[2022-03-19] MEDS: INSULIN LISPRO (NovoLOG) PER UNIT SC SCH ×4 (10:21→22:54)
[2022-03-19] MEDS: LEVEMIR (INSULIN DETEMIR) 1 UNITS/0.01ML SC SCH ×2 (10:22→22:53)
[2022-03-19] MEDS: APIXABAN 5 MG TAB (ELIQUIS) PO SCH ×2 (10:22→22:38)
[2022-03-19] MEDS: DOCUSATE SODIUM 100MG CAPSULE PO SCH ×2 (10:22→22:38)
[2022-03-19] MEDS: CALCITRIOL 0.25 MCG CAP (S0169) PO SCH (10:22)
[2022-03-19] MEDS: ASPIRIN 81MG ENTERIC TABLET PO SCH (10:22)
[2022-03-19] MEDS: (RENVELA) SEVELAMER **CARBONate** 800 MG TAB PO SCH ×3 (10:24→17:56)
[2022-03-19] MEDS: OMEPRAZOLE 20MG CAP PO SCH ×2 (10:32→22:38)
[2022-03-19] MEDS: MIRALAX *UNIT DOSE* 17GM PACKET PO SCH (10:32)
[2022-03-19] MEDS: TAMSULOSIN 0.4 MG CAP PO SCH (10:33)
[2022-03-19] MEDS: TORSEMIDE 100 MG TAB PO SCH ×2 (10:33→17:56)
[2022-03-19] MEDS: SODIUM CHLORIDE 0.9% INJ 10 ML SYR IV SCH ×2 (10:34→22:38)
[2022-03-19] MEDS: BISOPROLOL FUM 2.5 MG PER 1/2TAB PO SCH (13:29)
[2022-03-19] MEDS: METOCLOPRAMIDE 5 MG TAB PO PRN (14:42)
[2022-03-19] MEDS ORDERED: HEPARIN SOD (PORCINE) 5000UNITS/ML 1ML VIAL/SYRINGE PD ONE (16:30)
[2022-03-19] MEDS: SENNA 8.6 MG TAB (SENOKOT) PO PRN (18:00)
[2022-03-19] MEDS: LIDOCAINE 5% (LIDODERM) PATCH TD SCH (21:00)
[2022-03-19] MEDS: ATORVASTATIN 20 MG TAB PO SCH (22:37)
[2022-03-19] MEDS: MONTELUKAST 10 MG TAB PO SCH (22:39)
[2022-03-19] MEDS: ACETAMINOPHEN TAB 650MG DOSE (2X325MG) PO PRN (22:55)
[2022-03-20 06:00] VITALS: BP 107/66
[2022-03-20] MEDS: ANALGESIC BALM CRM 3OZ TOP SCH ×3 (06:08→22:10)
[2022-03-20] MEDS: IPRATROPIUM 0.5MG/ALBUTEROL 2.5MG INH SOL UD 3ML (DUONEB) NEB SCH ×4 (08:00→23:21)
[2022-03-20] MEDS: SYMBICORT 160/4.5MCG INHALER 6GM INH SCH ×2 (08:02→20:26)
[2022-03-20 08:34] LABS: BASO # 0.1 10^3/uL (0.0-0.2); BASO % 0.5 % (0.0-1.0); EOS # 0.1 10^3/uL (0.0-0.5); EOS % 0.5 % (0.0-3.0); HEMATOCRIT 31.2 % (42.0-52.0); HEMOGLOBIN 9.5 g/dl (13.5-17.5); LYMPH # 0.8 10^3/uL (1.5-5.0); LYMPH % 4.9 % (24.0-44.0); MEAN CORPUSCULAR HEMOGLOBIN 28.2 pg (27.0-33.0); MEAN CORPUSCULAR HGB CONC 30.4 g/dl (32.0-36.5); MEAN CORPUSCULAR VOLUME 92.6 fl (80.0-96.0); MONO # 1.4 10^3/uL (0.0-0.8); MONO % 8.3 % (2.0-8.0); NEUTROPHILS % 83.3 % (36.0-66.0); PLATELET COUNT, AUTOMATED 204 10^3/uL (150-450); RED BLOOD COUNT 3.37 10^6/uL (4.30-6.10); WHITE BLOOD COUNT 16.8 10^3/uL (4.0-10.0)
[2022-03-20] MEDS: DOCUSATE SODIUM 100MG CAPSULE PO SCH ×2 (08:56→22:08)
[2022-03-20] MEDS: TORSEMIDE 100 MG TAB PO SCH ×2 (08:56→17:28)
[2022-03-20] MEDS: APIXABAN 5 MG TAB (ELIQUIS) PO SCH ×2 (08:56→22:08)
[2022-03-20] MEDS: TAMSULOSIN 0.4 MG CAP PO SCH (08:56)
[2022-03-20] MEDS: OMEPRAZOLE 20MG CAP PO SCH ×2 (08:56→22:08)
[2022-03-20] MEDS: ASPIRIN 81MG ENTERIC TABLET PO SCH (08:56)
[2022-03-20] MEDS: BISOPROLOL FUM 2.5 MG PER 1/2TAB PO SCH (08:57)
[2022-03-20] MEDS: (RENVELA) SEVELAMER **CARBONate** 800 MG TAB PO SCH ×3 (08:57→17:28)
[2022-03-20] MEDS: INSULIN LISPRO (NovoLOG) PER UNIT SC SCH ×8 (08:57→22:09)
[2022-03-20] MEDS: LEVEMIR (INSULIN DETEMIR) 1 UNITS/0.01ML SC SCH ×3 (08:58→22:08)
[2022-03-20] MEDS: MIRALAX *UNIT DOSE* 17GM PACKET PO SCH (09:01)
[2022-03-20] MEDS: SODIUM CHLORIDE 0.9% INJ 10 ML SYR IV SCH ×2 (09:01→22:09)
[2022-03-20] MEDS: SANTYL OINT 30GM TOP SCH (09:01)
[2022-03-20] MEDS: VANICREAM MOISTURIZING SKIN CREAM 113GM TUBE TOP SCH (09:02)
[2022-03-20] MEDS: BACITRACIN OINTMENT 30GM TUBE TOP SCH (09:02)
[2022-03-20] MEDS: FLUTICASONE PROP 0.05% NASAL SPRAY 16 GM (FLONASE) NARES SCH (09:02)
[2022-03-20] MEDS: PERCOCET 5MG/325MG TAB PO PRN (09:04)
[2022-03-20 09:20] LABS: CALCIUM LEVEL 7.9 MG/DL (8.3-10.6); CREATININE FOR GFR 5.77 MG/DL (0.70-1.30); GLOMERULAR FILTRATION RATE 10.5 (>49); MAGNESIUM LEVEL 1.8 MG/DL (1.8-2.4); POTASSIUM SERUM 4.9 MMOL/L (3.5-5.1)
[2022-03-20] MEDS: METOCLOPRAMIDE 5 MG TAB PO PRN (10:33)
[2022-03-20] MEDS: methocarbamoL 500 MG TAB PO PRN (10:33)
[2022-03-20] MEDS: LIDOCAINE 5% (LIDODERM) PATCH TD SCH (21:00)
[2022-03-20] MEDS: MONTELUKAST 10 MG TAB PO SCH (22:08)
[2022-03-20] MEDS: ATORVASTATIN 20 MG TAB PO SCH (22:08)
[2022-03-20] MEDS: FLEET ENEMA PR PRN (23:50)
[2022-03-21] MEDS: FLEET ENEMA PR PRN (00:46)
[2022-03-21 06:00] VITALS: BP 111/71
[2022-03-21 06:04] LABS: BASO # 0.1 10^3/uL (0.0-0.2); BASO % 0.3 % (0.0-1.0); EOS % 0.1 % (0.0-3.0); HEMOGLOBIN 9.1 g/dl (13.5-17.5); LYMPH # 0.8 10^3/uL (1.5-5.0); LYMPH % 4.4 % (24.0-44.0); MEAN CORPUSCULAR HEMOGLOBIN 28.1 pg (27.0-33.0); MEAN CORPUSCULAR HGB CONC 30.3 g/dl (32.0-36.5); MEAN CORPUSCULAR VOLUME 92.6 fl (80.0-96.0); MONO % 8.6 % (2.0-8.0); NEUTROPHILS # 14.7 10^3/uL (1.5-8.5); NEUTROPHILS % 84.3 % (36.0-66.0); PLATELET COUNT, AUTOMATED 195 10^3/uL (150-450); RED BLOOD COUNT 3.24 10^6/uL (4.30-6.10); WHITE BLOOD COUNT 17.5 10^3/uL (4.0-10.0)
[2022-03-21 06:40] LABS: CALCIUM LEVEL 8.2 MG/DL (8.3-10.6); CREATININE FOR GFR 6.12 MG/DL (0.70-1.30); GLOMERULAR FILTRATION RATE 9.8 (>49); MAGNESIUM LEVEL 1.8 MG/DL (1.8-2.4); POTASSIUM SERUM 4.5 MMOL/L (3.5-5.1)
[2022-03-21 07:18] LABS: MONO # 1.5 10^3/uL (0.0-0.8)
[2022-03-21] MEDS: INSULIN LISPRO (NovoLOG) PER UNIT SC SCH ×4 (07:30→12:00)
[2022-03-21] MEDS: SYMBICORT 160/4.5MCG INHALER 6GM INH SCH (08:00)
[2022-03-21] MEDS: IPRATROPIUM 0.5MG/ALBUTEROL 2.5MG INH SOL UD 3ML (DUONEB) NEB SCH (08:00)
[2022-03-21] MEDS: LEVEMIR (INSULIN DETEMIR) 1 UNITS/0.01ML SC SCH (09:00)
[2022-03-21] MEDS: (RENVELA) SEVELAMER **CARBONate** 800 MG TAB PO SCH ×2 (09:22→12:06)
[2022-03-21] MEDS: METOCLOPRAMIDE 5 MG TAB PO PRN (09:22)
[2022-03-21] MEDS: DOCUSATE SODIUM 100MG CAPSULE PO SCH (09:22)
[2022-03-21 09:27] VITALS: BP 110/67
[2022-03-21] MEDS: APIXABAN 5 MG TAB (ELIQUIS) PO SCH (09:27)
[2022-03-21] MEDS: BISOPROLOL FUM 2.5 MG PER 1/2TAB PO SCH (09:27)
[2022-03-21] MEDS: OMEPRAZOLE 20MG CAP PO SCH (09:28)
[2022-03-21] MEDS: CALCITRIOL 0.25 MCG CAP (S0169) PO SCH (09:28)
[2022-03-21] MEDS: ASPIRIN 81MG ENTERIC TABLET PO SCH (09:28)
[2022-03-21] MEDS: TAMSULOSIN 0.4 MG CAP PO SCH (09:28)
[2022-03-21] MEDS: TORSEMIDE 100 MG TAB PO SCH (09:28)
[2022-03-21] MEDS: SENNA 8.6 MG TAB (SENOKOT) PO PRN (09:28)
[2022-03-21] MEDS: MIRALAX *UNIT DOSE* 17GM PACKET PO SCH (09:28)
[2022-03-21] MEDS: cefTRIAXone SOD 2 GM in D5W MINI-BAG PLUS 50 ML IV SCH (09:28)
[2022-03-21] MEDS: FLUTICASONE PROP 0.05% NASAL SPRAY 16 GM (FLONASE) NARES SCH (09:30)
[2022-03-21] MEDS: ANALGESIC BALM CRM 3OZ TOP SCH (09:30)
[2022-03-21] MEDS: BACITRACIN OINTMENT 30GM TUBE TOP SCH (09:30)
[2022-03-21] MEDS: SANTYL OINT 30GM TOP SCH (09:31)
[2022-03-21] MEDS: VANICREAM MOISTURIZING SKIN CREAM 113GM TUBE TOP SCH (09:31)
[2022-03-21] MEDS: SODIUM CHLORIDE 0.9% INJ 10 ML SYR IV SCH ×2 (11:06→13:30)
[2022-03-21] MEDS ORDERED: NOVOINJ3 SC ×2 (12:26→13:13)
[2022-03-21] MEDS ORDERED: SEVE800T3 PO ×2 (12:26→13:13)
[2022-03-21] MEDS ORDERED: METH-1165 PO (12:26)
[2022-03-21] MEDS ORDERED: TRES1INJ SC ×2 (12:26→13:13)
[2022-03-21] MEDS ORDERED: LISI2.5T8 PO (12:26)
[2022-03-21] MEDS ORDERED: COLA100C5 PO ×2 (12:26→13:13)
[2022-03-21] MEDS ORDERED: PERCOCET PO (12:26)
[2022-03-21] MEDS ORDERED: MIRA1POW3 PO (12:26)
[2022-03-21] MEDS ORDERED: PEN1MIS21 SC ×2 (12:29→13:15)
[2022-03-21] MEDS ORDERED: LISI2.5T9 PO (13:13)
[2022-03-21] MEDS ORDERED: BISO5TAB14 PO (13:13)
[2022-03-21] MEDS ORDERED: MIRA3350 PO (13:13)
[2022-03-21] MEDS ORDERED: OXYC1TAB23 PO (13:13)
[2022-03-21] MEDS: ONDANSETRON 4MG 2ML VIAL IV PRN (13:29)
== END 2022-03-21 16:19 | disposition home health service (06) | DRG 871 ==
LOC: M ED 13:16 → EEVIPCON 19:37 → M ED INP 19:37 → M MSPAV 03-06 01:00 → M PCU 03-07 22:06 → M MSPAV 03-13 21:10
PROVIDERS: ADMIT Internal Medicine; ATTEND Internal Medicine
PROC: 0HDMXZZ Extraction of Right Foot Skin, External Approach (ICD-10-PCS; principal; 2022-03-20)
PROC: 02HV33Z Insertion of Infusion Device into Superior Vena Cava, Percutaneous Approach (ICD-10-PCS; 2022-03-20)
DX: A40.9 Streptococcal sepsis, unspecified (principal); N18.6 End stage renal disease; I33.0 Acute and subacute infective endocarditis; I12.0 Hypertensive chronic kidney disease with stage 5 chronic kidney disease or end stage renal disease; E87.1 Hypo-osmolality and hyponatremia; M86.8X7 Other osteomyelitis, ankle and foot; R65.20 Severe sepsis without septic shock; J45.909 Unspecified asthma, uncomplicated; I48.0 Paroxysmal atrial fibrillation; K21.9 Gastro-esophageal reflux disease without esophagitis; Z99.2 Dependence on renal dialysis; E11.22 Type 2 diabetes mellitus with diabetic chronic kidney disease; D63.1 Anemia in chronic kidney disease; Z79.4 Long term (current) use of insulin; M75.31 Calcific tendinitis of right shoulder; N40.0 Benign prostatic hyperplasia without lower urinary tract symptoms; N20.0 Calculus of kidney; K57.30 Diverticulosis of large intestine without perforation or abscess without bleeding; Z79.82 Long term (current) use of aspirin; Z79.899 Other long term (current) drug therapy; E78.00 Pure hypercholesterolemia, unspecified; E11.621 Type 2 diabetes mellitus with foot ulcer

== ENCOUNTER → 2022-03-26 | Outpatient (REF) | payer MEDICARE ==
[~2022-03-26] MED LIST changes: +ALBU8.5H INH; +BISO5TAB14 PO; +COLA100C5 PO; +DILT180C28 PO; +GLUC3SPR; +LISI2.5T8 PO; +LISI2.5T9 PO; +LOPR1TAB6 PO; +METH-1165 PO; +METO5TAB2 PO; +MIRA1POW3 PO; +MIRA3350 PO; +MONT10TA97 PO; +MUPI2OI EXT; +PEN1MIS21 SC; +SANT250O8 TOP; +SEVE800T3 PO; +SPIR12.9 INH; +TORS100T PO; +TRES1INJ SC; +VALS1TAB68 PO; +[UNRECOGNIZED DRUG - REMARK]
[2022-03-26 13:46] LABS: HEMOGLOBIN 8.8 g/dl (13.5-17.5); MEAN CORPUSCULAR HEMOGLOBIN 27.9 pg (27.0-33.0); MEAN CORPUSCULAR HGB CONC 30.3 g/dl (32.0-36.5); MEAN CORPUSCULAR VOLUME 92.1 fl (80.0-96.0); PLATELET COUNT, AUTOMATED 165 10^3/uL (150-450); RED BLOOD COUNT 3.15 10^6/uL (4.30-6.10); WHITE BLOOD COUNT 10.6 10^3/uL (4.0-10.0)
[2022-03-26 14:05] LABS: ERYTHROCYTE SEDIMENTATION RATE 70 mm/hr (0-20)
[2022-03-26 14:44] LABS: POTASSIUM SERUM 4.9 MMOL/L (3.5-5.1)
[2022-03-26 14:46] LABS: ALBUMIN 1.9 G/DL (3.2-5.2)
[2022-03-26 14:51] LABS: BILIRUBIN,TOTAL 0.2 MG/DL (0.3-1.2); CALCIUM LEVEL 7.9 MG/DL (8.3-10.6)
[2022-03-26 14:52] LABS: C REACTIVE PROTEIN QUANTITATIV 8.6 MG/DL (<1.0); TOTAL PROTEIN 5.7 G/DL (5.7-8.2)
[2022-03-26 14:53] LABS: CREATININE FOR GFR 6.2 MG/DL (0.70-1.30); GLOMERULAR FILTRATION RATE 9.7 (>49)
== END ==
LOC: M LAB REF 12:43
PROVIDERS: ATTEND Internal Medicine Infectious Disease
DX: I38 Endocarditis, valve unspecified (principal)

== ENCOUNTER → 2022-04-06 | Outpatient (CLI) | payer MEDICARE ==
[2022-04-06 17:40] LABS: BASO # 0.1 10^3/uL (0.0-0.2); BASO % 0.6 % (0.0-1.0); EOS # 0.2 10^3/uL (0.0-0.5); EOS % 1.3 % (0.0-3.0); HEMATOCRIT 31.1 % (42.0-52.0); HEMOGLOBIN 9.5 g/dl (13.5-17.5); LYMPH # 1.2 10^3/uL (1.5-5.0); LYMPH % 10.7 % (24.0-44.0); MEAN CORPUSCULAR HEMOGLOBIN 28.4 pg (27.0-33.0); MEAN CORPUSCULAR HGB CONC 30.5 g/dl (32.0-36.5); MEAN CORPUSCULAR VOLUME 92.8 fl (80.0-96.0); MONO # 0.8 10^3/uL (0.0-0.8); MONO % 6.6 % (2.0-8.0); NEUTROPHILS # 8.7 10^3/uL (1.5-8.5); NEUTROPHILS % 76.3 % (36.0-66.0); PLATELET COUNT, AUTOMATED 241 10^3/uL (150-450); RED BLOOD COUNT 3.35 10^6/uL (4.30-6.10); WHITE BLOOD COUNT 11.4 10^3/uL (4.0-10.0)
[2022-04-06 18:02] LABS: ALBUMIN 2.3 G/DL (3.2-5.2); ALKALINE PHOSPHATASE 138 U/L (46-116); ALT/SGPT 32 U/L (7.0-40); AST/SGOT 16 U/L (<34); BILIRUBIN,TOTAL < 0.2 MG/DL (0.3-1.2); BLOOD UREA NITROGEN 78 MG/DL (9-23); CALCIUM LEVEL 8.6 MG/DL (8.3-10.6); CARBON DIOXIDE LEVEL 23 MMOL/L (20-31); CHLORIDE LEVEL 94 MMOL/L (98-107); GLOMERULAR FILTRATION RATE 7.6 (>49); GLUCOSE, FASTING 174 MG/DL (74-106); SODIUM LEVEL 133 MMOL/L (136-145); TOTAL PROTEIN 6.4 G/DL (5.7-8.2)
[2022-04-06 18:14] LABS: ERYTHROCYTE SEDIMENTATION RATE 68 mm/hr (0-20)
== END ==
LOC: M PLALAB 15:10
PROVIDERS: ATTEND Internal Medicine Infectious Disease
DX: I05.9 Rheumatic mitral valve disease, unspecified (principal); M25.552 Pain in left hip

== ENCOUNTER → 2022-04-09 | Outpatient (REF) | payer MEDICARE ==
[2022-04-09 17:49] LABS: HEMATOCRIT 27.8 % (42.0-52.0); HEMOGLOBIN 8.8 g/dl (13.5-17.5); MEAN CORPUSCULAR HEMOGLOBIN 28.9 pg (27.0-33.0); MEAN CORPUSCULAR HGB CONC 31.7 g/dl (32.0-36.5); MEAN CORPUSCULAR VOLUME 91.4 fl (80.0-96.0); PLATELET COUNT, AUTOMATED 183 10^3/uL (150-450); RED BLOOD COUNT 3.04 10^6/uL (4.30-6.10); WHITE BLOOD COUNT 10.7 10^3/uL (4.0-10.0)
[2022-04-09 17:58] LABS: ALBUMIN 2.1 G/DL (3.2-5.2); ALKALINE PHOSPHATASE 131 U/L (46-116); ALT/SGPT 26 U/L (7.0-40); AST/SGOT 10 U/L (<34); BILIRUBIN,TOTAL < 0.2 MG/DL (0.3-1.2); BLOOD UREA NITROGEN 66 MG/DL (9-23); CALCIUM LEVEL 8.2 MG/DL (8.3-10.6); CARBON DIOXIDE LEVEL 27 MMOL/L (20-31); CHLORIDE LEVEL 93 MMOL/L (98-107); CREATININE FOR GFR 7.25 MG/DL (0.70-1.30); GLOMERULAR FILTRATION RATE 8.1 (>49); GLUCOSE, FASTING 302 MG/DL (74-106); POTASSIUM SERUM 3.6 MMOL/L (3.5-5.1); SODIUM LEVEL 132 MMOL/L (136-145); TOTAL PROTEIN 5.8 G/DL (5.7-8.2)
[2022-04-09 18:30] LABS: ERYTHROCYTE SEDIMENTATION RATE 71 mm/hr (0-20)
== END ==
LOC: M SHH 16:44
PROVIDERS: ATTEND Internal Medicine Infectious Disease
DX: I33.9 Acute and subacute endocarditis, unspecified (principal)

== ENCOUNTER → 2022-04-16 | Outpatient (REF) | payer MEDICARE ==
[2022-04-16 15:42] LABS: HEMATOCRIT 27.7 % (42.0-52.0); HEMOGLOBIN 8.9 g/dl (13.5-17.5); MEAN CORPUSCULAR HEMOGLOBIN 28.7 pg (27.0-33.0); MEAN CORPUSCULAR HGB CONC 32.1 g/dl (32.0-36.5); MEAN CORPUSCULAR VOLUME 89.4 fl (80.0-96.0); PLATELET COUNT, AUTOMATED 158 10^3/uL (150-450); WHITE BLOOD COUNT 13.2 10^3/uL (4.0-10.0)
[2022-04-16 16:00] LABS: C REACTIVE PROTEIN QUANTITATIV 1.1 MG/DL (<1.0)
[2022-04-16 16:09] LABS: ALBUMIN 2.3 G/DL (3.2-5.2); BILIRUBIN,TOTAL 0.2 MG/DL (0.3-1.2); CREATININE FOR GFR 6.76 MG/DL (0.70-1.30); GLOMERULAR FILTRATION RATE 8.7 (>49); POTASSIUM SERUM 4.8 MMOL/L (3.5-5.1); TOTAL PROTEIN 5.7 G/DL (5.7-8.2)
[2022-04-16 16:45] LABS: ERYTHROCYTE SEDIMENTATION RATE 48 mm/hr (0-20)
== END ==
LOC: M SHH 15:11
PROVIDERS: ATTEND Internal Medicine Infectious Disease
DX: I38 Endocarditis, valve unspecified (principal)

== ENCOUNTER 2022-05-12 13:43 | Inpatient (IN) | payer MEDICARE ==
[~2022-05-12] VITALS: Ht 193 cm; Wt 127.2 kg
[2022-05-12 15:14] LABS: HEMATOCRIT 26.4 % (42.0-52.0); HEMOGLOBIN 8.5 g/dl (13.5-17.5); MEAN CORPUSCULAR HEMOGLOBIN 28.1 pg (27.0-33.0); MEAN CORPUSCULAR HGB CONC 32.2 g/dl (32.0-36.5); MEAN CORPUSCULAR VOLUME 87.4 fl (80.0-96.0); PLATELET COUNT, AUTOMATED 263 10^3/uL (150-450); RED BLOOD COUNT 3.02 10^6/uL (4.30-6.10); WHITE BLOOD COUNT 29.5 10^3/uL (4.0-10.0)
[2022-05-12 15:27] LABS: INR 1.58; PROTHROMBIN TIME 19.2 SECONDS (12.5-14.5)
[2022-05-12 15:28] LABS: PARTIAL THROMBOPLASTIN TIME 45.8 SECONDS (24.8-34.2)
[2022-05-12 15:29] LABS: LYMPHOCYTES 3 % (16-44); METAMYELOCYTES 2 % (0-0); MONOCYTES 4 % (0-5); MYELOCYTES 1 % (0-0); NEUTROPHILS 88 % (28-66); PLATELET ESTIMATE NORMAL (NORMAL); PROMYELOCYTES 1 % (0-0)
[2022-05-12] MEDS ORDERED: PERCOCET 5MG/325MG TAB PO ONE (15:30)
[2022-05-12] MEDS ORDERED: CEFEPIME HCL 2 GM in D5W MINI-BAG PLUS 50 ML IV ONE (15:35)
[2022-05-12 15:44] LABS: CK-MB VALUE MASS 8.6 NG/ML (<3.6); RSV AMPLIFICATION NEGATIVE (NEGATIVE)
[2022-05-12 15:45] LABS: BILIRUBIN,DIRECT < 0.1 MG/DL (<0.4)
[2022-05-12 15:46] LABS: CPK CREATINE PHOSPHOKINASE 220 U/L (46-171)
[2022-05-12 15:48] LABS: THYROID STIMULATING HORMONE 2.238 uIU/ML (0.55-4.78)
[2022-05-12 16:12] LABS: ALBUMIN 1.9 G/DL (3.2-5.2); ALKALINE PHOSPHATASE 139 U/L (46-116); ALT/SGPT 30 U/L (7.0-40); AST/SGOT 17 U/L (<34); BILIRUBIN,TOTAL 0.2 MG/DL (0.3-1.2); BLOOD UREA NITROGEN 59 MG/DL (9-23); CALCIUM LEVEL 8.5 MG/DL (8.3-10.6); CARBON DIOXIDE LEVEL 25 MMOL/L (20-31); CHLORIDE LEVEL 93 MMOL/L (98-107); GLOMERULAR FILTRATION RATE 6.7 (>49); GLUCOSE, FASTING 204 MG/DL (74-106); POTASSIUM SERUM 3.5 MMOL/L (3.5-5.1); SODIUM LEVEL 133 MMOL/L (136-145); TOTAL PROTEIN 5.8 G/DL (5.7-8.2)
[2022-05-12 18:23] LABS: CK-MB VALUE MASS 7.4 NG/ML (<3.6); MB/CK RELATIVE INDEX 2.87 (< OR =4)
[2022-05-12] MEDS ORDERED: GLUCOSE 4GM CHEW TABLET PO PRN (19:10)
[2022-05-12] MEDS ORDERED: GLUCAGON INJ 1MG VIAL SC PRN (19:10)
[2022-05-12] MEDS ORDERED: DEXTROSE 50% 50ML SYRINGE IV PRN (19:10)
[2022-05-12] MEDS ORDERED: INSUH10VL SC (19:32)
[2022-05-12] MEDS ORDERED: LISI2.5T9 PO (19:32)
[2022-05-12] MEDS ORDERED: BISO5TAB14 PO (19:32)
[2022-05-12] MEDS ORDERED: COLA100C5 PO (19:32)
[2022-05-12] MEDS ORDERED: METH-1165 PO (19:32)
[2022-05-12] MEDS ORDERED: METO5TAB2 PO ×2 (19:33)
[2022-05-12] MEDS ORDERED: TRES1INJ2 INJ (19:38)
[2022-05-12] MEDS ORDERED: SEVE800T3 PO (19:38)
[2022-05-12] MEDS ORDERED: RENATAB5 PO (19:38)
[2022-05-12] MEDS ORDERED: MED REC COMMENT (19:39)
[2022-05-12] MEDS ORDERED: HOME MED LIST COMPLETE! XX SCH (19:40)
[2022-05-12] MEDS ORDERED: ALBUTEROL 90 MCG/ACT 8GM HFA INHALER INH PRN (20:00)
[2022-05-12] MEDS: MUPIROCIN 2% OINT 22 GM TUBE TOP SCH (21:00)
[2022-05-12] MEDS: INSULIN LISPRO (NovoLOG) PER UNIT SC SCH (21:00)
[2022-05-12 22:34] LABS: APPEARANCE, BODY FLUID CLEAR (CLEAR); PERITONEAL FL COLOR COLORLESS (COLORLESS); SOURCE, BODY FLUID PERITONEAL
[2022-05-12] MEDS: MONTELUKAST 10 MG TAB PO SCH (22:47)
[2022-05-12] MEDS: OMEPRAZOLE 20MG CAP PO SCH (22:47)
[2022-05-12] MEDS: TAMSULOSIN 0.4 MG CAP PO SCH (22:47)
[2022-05-12] MEDS: ATORVASTATIN 20 MG TAB PO SCH (22:47)
[2022-05-12] MEDS: APIXABAN 5 MG TAB (ELIQUIS) PO SCH (22:47)
[2022-05-12] MEDS: DOCUSATE SODIUM 100MG CAPSULE PO SCH (22:47)
[2022-05-12] MEDS ORDERED: POTASSIUM CHLORIDE 10MEQ SR TABLET PO ONE (23:00)
[2022-05-13] VITALS (11 sets, daily range): BP systolic 98–118; BP diastolic 46–54; O2SAT 97–98
[2022-05-13] MEDS: ACETAMINOPHEN TAB 650MG DOSE (2X325MG) PO PRN ×2 (01:13→14:45)
[2022-05-13 06:12] LABS: HEMOGLOBIN 7.9 g/dl (13.5-17.5); MEAN CORPUSCULAR HEMOGLOBIN 27.9 pg (27.0-33.0); MEAN CORPUSCULAR HGB CONC 31.6 g/dl (32.0-36.5); MEAN CORPUSCULAR VOLUME 88.3 fl (80.0-96.0); PLATELET COUNT, AUTOMATED 201 10^3/uL (150-450); RED BLOOD COUNT 2.83 10^6/uL (4.30-6.10); WHITE BLOOD COUNT 20.5 10^3/uL (4.0-10.0)
[2022-05-13 06:36] LABS: HEMOGLOBIN A1c 10.5 % (4.0-6.0)
[2022-05-13 06:39] LABS: MAGNESIUM LEVEL 1.7 MG/DL (1.8-2.4)
[2022-05-13 06:47] LABS: ALBUMIN 1.7 G/DL (3.2-5.2); BILIRUBIN,TOTAL 0.2 MG/DL (0.3-1.2); CALCIUM LEVEL 8.2 MG/DL (8.3-10.6); CREATININE FOR GFR 8.77 MG/DL (0.70-1.30); GLOMERULAR FILTRATION RATE 6.5 (>49); POTASSIUM SERUM 3.3 MMOL/L (3.5-5.1); TOTAL PROTEIN 5.6 G/DL (5.7-8.2)
[2022-05-13] MEDS ORDERED: MAG SULF 1GM/100ML (MAG RUN) 1 GM in IV 1 EA IV ONE (07:00)
[2022-05-13 07:27] LABS: CK-MB VALUE MASS 6.2 NG/ML (<3.6); MB/CK RELATIVE INDEX 2.7 (< OR =4)
[2022-05-13] MEDS ORDERED: POTASSIUM CHLORIDE 10MEQ SR TABLET PO ONE (08:00)
[2022-05-13] MEDS: DOCUSATE SODIUM 100MG CAPSULE PO SCH ×2 (08:19→21:51)
[2022-05-13] MEDS: (RENVELA) SEVELAMER **CARBONate** 800 MG TAB PO SCH ×3 (08:20→17:49)
[2022-05-13] MEDS: APIXABAN 5 MG TAB (ELIQUIS) PO SCH (08:20)
[2022-05-13] MEDS: OMEPRAZOLE 20MG CAP PO SCH ×2 (08:20→21:51)
[2022-05-13] MEDS: ASPIRIN 81MG ENTERIC TABLET PO SCH (08:20)
[2022-05-13] MEDS: INSULIN LISPRO (NovoLOG) PER UNIT SC SCH ×4 (08:21→21:00)
[2022-05-13] MEDS: LORATADINE 10 MG TAB PO SCH (08:21)
[2022-05-13] MEDS: LEVEMIR (INSULIN DETEMIR) 1 UNITS/0.01ML SC SCH (08:22)
[2022-05-13] MEDS: bisoproloL fumarate 5 MG TAB PO SCH (09:00)
[2022-05-13] MEDS: metroNIDAZOLE 500 MG in IV 1 EA IV SCH ×2 (09:50→17:49)
[2022-05-13] MEDS: MUPIROCIN 2% OINT 22 GM TUBE TOP SCH ×2 (09:51→21:52)
[2022-05-13] MEDS: FLUTICASONE PROP 0.05% NASAL SPRAY 16 GM (FLONASE) SCH (09:51)
[2022-05-13] MEDS ORDERED: NS 1,000 ML IV SCH (10:05)
[2022-05-13] MEDS ORDERED: VANCOMYCIN HCL 1,000 MG, VIAL MATE ADAPTER 1 EACH in NS 250 ML IV SCH (10:25)
[2022-05-13] MEDS ORDERED: VANCOMYCIN HCL 1,000 MG, VIAL MATE ADAPTER 1 EACH in NS 250 ML IV ONE ×2 (12:00→13:00)
[2022-05-13 12:21] LABS: PERCENT SATURATION 14.5 % (19.7-50.0)
[2022-05-13 13:35] LABS: CK-MB VALUE MASS 5.6 NG/ML (<3.6)
[2022-05-13 13:42] LABS: MB/CK RELATIVE INDEX 3.21 (< OR =4)
[2022-05-13] MEDS: methocarbamoL 750 MG TAB PO PRN (14:45)
[2022-05-13] MEDS ORDERED: TORSEMIDE 100 MG TAB PO SCH (17:00)
[2022-05-13] MEDS: CEFEPIME HCL 1 GM in D5W MINI-BAG PLUS 50 ML IV SCH (17:10)
[2022-05-13 19:51] LABS: C REACTIVE PROTEIN QUANTITATIV 19.4 MG/DL (<1.0)
[2022-05-13] MEDS: MONTELUKAST 10 MG TAB PO SCH (21:50)
[2022-05-13] MEDS: TAMSULOSIN 0.4 MG CAP PO SCH (21:50)
[2022-05-13] MEDS: HEPARIN SOD (PORCINE) 5000UNITS/ML 1ML VIAL/SYRINGE SQ SCH (21:50)
[2022-05-13] MEDS: ATORVASTATIN 20 MG TAB PO SCH (21:52)
[2022-05-14] VITALS (15 sets, daily range): BP systolic 86–136; BP diastolic 40–63
[2022-05-14] MEDS: metroNIDAZOLE 500 MG in IV 1 EA IV SCH ×3 (01:04→18:02)
[2022-05-14 06:01] LABS: HEMATOCRIT 22.5 % (42.0-52.0); HEMOGLOBIN 7.1 g/dl (13.5-17.5); MEAN CORPUSCULAR HEMOGLOBIN 28.3 pg (27.0-33.0); MEAN CORPUSCULAR HGB CONC 31.6 g/dl (32.0-36.5); MEAN CORPUSCULAR VOLUME 89.6 fl (80.0-96.0); PLATELET COUNT, AUTOMATED 166 10^3/uL (150-450); RED BLOOD COUNT 2.51 10^6/uL (4.30-6.10); WHITE BLOOD COUNT 14.9 10^3/uL (4.0-10.0)
[2022-05-14 06:16] LABS: VANCOMYCIN RANDOM 15.2 UG/ML
[2022-05-14 06:18] LABS: MAGNESIUM LEVEL 1.6 MG/DL (1.8-2.4)
[2022-05-14 06:25] LABS: ALBUMIN 1.6 G/DL (3.2-5.2); ALKALINE PHOSPHATASE 114 U/L (46-116); ALT/SGPT 22 U/L (7.0-40); AST/SGOT 12 U/L (<34); BILIRUBIN,TOTAL < 0.2 MG/DL (0.3-1.2); BLOOD UREA NITROGEN 60 MG/DL (9-23); CALCIUM LEVEL 7.9 MG/DL (8.3-10.6); CARBON DIOXIDE LEVEL 25 MMOL/L (20-31); CHLORIDE LEVEL 95 MMOL/L (98-107); CREATININE FOR GFR 8.56 MG/DL (0.70-1.30); GLOMERULAR FILTRATION RATE 6.7 (>49); GLUCOSE, FASTING 102 MG/DL (74-106); POTASSIUM SERUM 3.4 MMOL/L (3.5-5.1); SODIUM LEVEL 133 MMOL/L (136-145); TOTAL PROTEIN 4.9 G/DL (5.7-8.2)
[2022-05-14] MEDS: HEPARIN SOD (PORCINE) 5000UNITS/ML 1ML VIAL/SYRINGE SQ SCH ×3 (06:37→22:06)
[2022-05-14 07:07] LABS: ANISOCYTOSIS 2+; EOSINOPHILS 1 % (0-3); HYPOCHROMASIA 1+; LYMPHOCYTES 5 % (16-44); MONOCYTES 8 % (0-5); NEUTROPHILS 86 % (28-66)
[2022-05-14 07:08] LABS: MICROCYTOSIS 1+
[2022-05-14 07:09] LABS: PLATELET ESTIMATE NORMAL (NORMAL); POLYCHROMASIA 1+
[2022-05-14] MEDS: INSULIN LISPRO (NovoLOG) PER UNIT SC SCH ×4 (07:30→22:17)
[2022-05-14] MEDS ORDERED: POTASSIUM CHLORIDE 10MEQ SR TABLET PO ONE (07:30)
[2022-05-14] MEDS ORDERED: VANCOMYCIN HCL 1,000 MG, VIAL MATE ADAPTER 1 EACH in NS 250 ML IV ONE (08:00)
[2022-05-14] MEDS ORDERED: MAG SULF 1GM/100ML (MAG RUN) 1 GM in IV 1 EA IV ONE (08:00)
[2022-05-14] MEDS: SANTYL OINT 30GM TOP SCH (09:00)
[2022-05-14] MEDS: bisoproloL fumarate 5 MG TAB PO SCH (09:00)
[2022-05-14] MEDS ORDERED: VANCOMYCIN INTERMITTENT/PULSE DOSING BY CLINICAL PHARMACIST PER DOSING PROTOCOL XX SCH (09:00)
[2022-05-14] MEDS ORDERED: FLUBLOK(EGG FREE)(QUAD)INFLUENZA VACC 0.5ML SYRINGE 18YRS & OLDER IM.IMMUN ONE (09:00)
[2022-05-14] MEDS: (RENVELA) SEVELAMER **CARBONate** 800 MG TAB PO SCH ×3 (09:16→17:36)
[2022-05-14] MEDS: ASPIRIN 81MG ENTERIC TABLET PO SCH (09:16)
[2022-05-14] MEDS: DOCUSATE SODIUM 100MG CAPSULE PO SCH ×2 (09:16→22:04)
[2022-05-14] MEDS: LORATADINE 10 MG TAB PO SCH (09:17)
[2022-05-14] MEDS: OMEPRAZOLE 20MG CAP PO SCH ×2 (09:17→22:05)
[2022-05-14] MEDS: CALCITRIOL 0.25 MCG CAP (S0169) PO SCH (09:17)
[2022-05-14] MEDS: LEVEMIR (INSULIN DETEMIR) 1 UNITS/0.01ML SC SCH (09:18)
[2022-05-14] MEDS: FLUTICASONE PROP 0.05% NASAL SPRAY 16 GM (FLONASE) SCH (09:19)
[2022-05-14] MEDS: MUPIROCIN 2% OINT 22 GM TUBE TOP SCH ×2 (09:20→22:06)
[2022-05-14 11:47] LABS: APPEARANCE, BODY FLUID CLEAR (CLEAR); PERITONEAL DIALYSATE FL COLOR COLORLESS (COLORLESS); SOURCE, BODY FLUID PERITONEAL DIALYSATE
[2022-05-14] MEDS: ACETAMINOPHEN TAB 650MG DOSE (2X325MG) PO PRN (12:54)
[2022-05-14] MEDS ORDERED: HEPARIN SOD (PORCINE) 5000UNITS/ML 1ML VIAL/SYRINGE PD ONE (14:40)
[2022-05-14] MEDS: ALBUTEROL SULFATE 2.5MG/0.5ML INH NEB SOLN INH SCH ×2 (16:00→19:10)
[2022-05-14] MEDS ORDERED: ALBUTEROL SULFATE 2.5MG/0.5ML INH NEB SOLN INH PRN (16:20)
[2022-05-14] MEDS: methocarbamoL 750 MG TAB PO PRN (17:53)
[2022-05-14] MEDS: CEFEPIME HCL 1 GM in D5W MINI-BAG PLUS 50 ML IV SCH (18:02)
[2022-05-14 19:41] LABS: HEMATOCRIT 27.9 % (42.0-52.0); HEMOGLOBIN 8.8 g/dl (13.5-17.5)
[2022-05-14] MEDS ORDERED: CEFEPIME HCL 2 GM in D5W MINI-BAG PLUS 50 ML IV SCH (20:00)
[2022-05-14] MEDS: TAMSULOSIN 0.4 MG CAP PO SCH (22:04)
[2022-05-14] MEDS: ATORVASTATIN 20 MG TAB PO SCH (22:05)
[2022-05-14] MEDS: MONTELUKAST 10 MG TAB PO SCH (22:05)
[2022-05-15] VITALS: BP 127/61
[2022-05-15] MEDS: metroNIDAZOLE 500 MG in IV 1 EA IV SCH ×3 (00:04→17:00)
[2022-05-15] MEDS: PERCOCET 5MG/325MG TAB PO PRN ×3 (00:04→14:25)
[2022-05-15 04:00] VITALS: BP 140/60
[2022-05-15] MEDS: methocarbamoL 750 MG TAB PO PRN ×2 (05:13→21:33)
[2022-05-15 05:53] LABS: HEMATOCRIT 27.8 % (42.0-52.0); HEMOGLOBIN 9.1 g/dl (13.5-17.5); MEAN CORPUSCULAR HGB CONC 32.7 g/dl (32.0-36.5); MEAN CORPUSCULAR VOLUME 88.5 fl (80.0-96.0); PLATELET COUNT, AUTOMATED 166 10^3/uL (150-450); RED BLOOD COUNT 3.14 10^6/uL (4.30-6.10); WHITE BLOOD COUNT 15.6 10^3/uL (4.0-10.0)
[2022-05-15] MEDS: ONDANSETRON 4MG 2ML VIAL IV PRN (06:16)
[2022-05-15] MEDS: HEPARIN SOD (PORCINE) 5000UNITS/ML 1ML VIAL/SYRINGE SQ SCH (06:16)
[2022-05-15 06:25] LABS: C REACTIVE PROTEIN QUANTITATIV 14.6 MG/DL (<1.0); MAGNESIUM LEVEL 1.8 MG/DL (1.8-2.4); VANCOMYCIN RANDOM 19.2 UG/ML
[2022-05-15 06:34] LABS: ALBUMIN 1.6 G/DL (3.2-5.2); BILIRUBIN,TOTAL 0.3 MG/DL (0.3-1.2); CALCIUM LEVEL 7.6 MG/DL (8.3-10.6); CREATININE FOR GFR 7.6 MG/DL (0.70-1.30); GLOMERULAR FILTRATION RATE 7.6 (>49); POTASSIUM SERUM 3.7 MMOL/L (3.5-5.1); TOTAL PROTEIN 5.4 G/DL (5.7-8.2)
[2022-05-15 07:05] LABS: ATYPICAL LYMPH 1 % (0-5); EOSINOPHILS 1 % (0-3); LYMPHOCYTES 6 % (16-44); MONOCYTES 4 % (0-5); NEUTROPHILS 85 % (28-66)
[2022-05-15 07:06] LABS: ANISOCYTOSIS 2+; MICROCYTOSIS 2+
[2022-05-15 07:07] LABS: HYPOCHROMASIA 1+; PLATELET ESTIMATE DECREASED (NORMAL)
[2022-05-15 07:26] VITALS: BP 96/50
[2022-05-15] MEDS: INSULIN LISPRO (NovoLOG) PER UNIT SC SCH ×4 (07:30→21:00)
[2022-05-15 07:32] VITALS: BP 109/52
[2022-05-15] MEDS: ALBUTEROL SULFATE 2.5MG/0.5ML INH NEB SOLN INH SCH ×4 (08:14→19:20)
[2022-05-15] MEDS ORDERED: SENOKOT S TAB PO ONE (09:00)
[2022-05-15] MEDS ORDERED: BISACODYL 5MG TAB PO PRN (09:00)
[2022-05-15] MEDS: FLUTICASONE PROP 0.05% NASAL SPRAY 16 GM (FLONASE) SCH ×2 (09:00→09:40)
[2022-05-15] MEDS: MIRALAX *UNIT DOSE* 17GM PACKET PO SCH ×2 (09:40→21:32)
[2022-05-15] MEDS: MUPIROCIN 2% OINT 22 GM TUBE TOP SCH ×2 (09:40→21:34)
[2022-05-15] MEDS: LEVEMIR (INSULIN DETEMIR) 1 UNITS/0.01ML SC SCH (09:42)
[2022-05-15] MEDS: (RENVELA) SEVELAMER **CARBONate** 800 MG TAB PO SCH ×3 (09:43→18:00)
[2022-05-15] MEDS: bisoproloL fumarate 5 MG TAB PO SCH (09:43)
[2022-05-15] MEDS: LORATADINE 10 MG TAB PO SCH (09:43)
[2022-05-15] MEDS: OMEPRAZOLE 20MG CAP PO SCH ×2 (09:43→21:32)
[2022-05-15] MEDS: ASPIRIN 81MG ENTERIC TABLET PO SCH (09:43)
[2022-05-15] MEDS: APIXABAN 5 MG TAB (ELIQUIS) PO SCH ×3 (09:43→21:34)
[2022-05-15] MEDS: SANTYL OINT 30GM TOP SCH (09:56)
[2022-05-15] MEDS: DIMETHICONE 2% OINTMENT(VANICREAM) 70GM TUBE TOP SCH ×2 (12:00→21:33)
[2022-05-15] MEDS ORDERED: LIDOCAINE 1% MDV 20ML VIAL As Ordered ONE (12:54)
[2022-05-15 14:13] LABS: PH BODY FLUID 7.672 UNITS (NOT ESTABLISHED); SOURCE, BODY FLUID pH PLEURAL
[2022-05-15 14:31] LABS: SOURCE, BODY FLUID ALBUMIN PLEURAL
[2022-05-15 14:36] LABS: SOURCE, BODY FLUID GLUCOSE PLEURAL; SOURCE, BODY FLUID TRIG PLEURAL; TRIGLYCERIDE, BODY FLUID 29 MG/DL (NOT ESTABLISHED)
[2022-05-15 14:37] LABS: LDH, BODY FLUID 282 U/L (NOT ESTABLISHED); SOURCE, BODY FLUID LDH PLEURAL
[2022-05-15 14:38] LABS: AMYLASE, BODY FLUID < 20 U/L (NOT ESTABLISHED); CHOLESTEROL, BODY FLUID 31 MG/DL (NOT ESTABLISHED); SOURCE, BODY FLUID AMYLASE PLEURAL; SOURCE, BODY FLUID CHOL PLEURAL; SOURCE, BODY FLUID TOT PROTEIN PLEURAL; TOTAL PROTEIN, BODY FLUID 2.6 G/DL (NOT ESTABLISHED)
[2022-05-15 14:43] LABS: PLEURAL FL COLOR RED (COLORLESS); SOURCE, BODY FLUID PLEURAL
[2022-05-15 14:44] LABS: APPEARANCE, BODY FLUID CLOUDY (CLEAR)
[2022-05-15 16:08] VITALS: BP 117/58
[2022-05-15] MEDS: CEFEPIME HCL 1 GM in D5W MINI-BAG PLUS 50 ML IV SCH (16:56)
[2022-05-15 20:52] VITALS: BP 119/57
[2022-05-15] MEDS: POTASSIUM CHLORIDE 10MEQ SR TABLET PO SCH (21:32)
[2022-05-15] MEDS: ATORVASTATIN 20 MG TAB PO SCH (21:32)
[2022-05-15] MEDS: TAMSULOSIN 0.4 MG CAP PO SCH (21:32)
[2022-05-15] MEDS: MONTELUKAST 10 MG TAB PO SCH (21:33)
[2022-05-16] MEDS: PERCOCET 5MG/325MG TAB PO PRN ×3 (01:17→20:34)
[2022-05-16] MEDS: metroNIDAZOLE 500 MG in IV 1 EA IV SCH ×3 (01:17→17:40)
[2022-05-16 05:16] LABS: HEMATOCRIT 27.7 % (42.0-52.0); HEMOGLOBIN 8.9 g/dl (13.5-17.5); MEAN CORPUSCULAR HEMOGLOBIN 28.9 pg (27.0-33.0); MEAN CORPUSCULAR HGB CONC 32.1 g/dl (32.0-36.5); MEAN CORPUSCULAR VOLUME 89.9 fl (80.0-96.0); PLATELET COUNT, AUTOMATED 162 10^3/uL (150-450); RED BLOOD COUNT 3.08 10^6/uL (4.30-6.10); WHITE BLOOD COUNT 15.5 10^3/uL (4.0-10.0)
[2022-05-16 05:23] VITALS: BP 128/57
[2022-05-16 05:43] LABS: MAGNESIUM LEVEL 1.6 MG/DL (1.8-2.4); VANCOMYCIN RANDOM 16.4 UG/ML
[2022-05-16 05:44] LABS: C REACTIVE PROTEIN QUANTITATIV 12.2 MG/DL (<1.0)
[2022-05-16 05:53] LABS: ALBUMIN 1.6 G/DL (3.2-5.2); BILIRUBIN,TOTAL 0.2 MG/DL (0.3-1.2); CALCIUM LEVEL 7.9 MG/DL (8.3-10.6); CREATININE FOR GFR 7.72 MG/DL (0.70-1.30); GLOMERULAR FILTRATION RATE 7.5 (>49); POTASSIUM SERUM 3.8 MMOL/L (3.5-5.1); TOTAL PROTEIN 4.9 G/DL (5.7-8.2)
[2022-05-16] MEDS: ALBUTEROL SULFATE 2.5MG/0.5ML INH NEB SOLN INH SCH ×4 (06:11→19:06)
[2022-05-16 06:12] LABS: EOSINOPHILS 1 % (0-3); LYMPHOCYTES 10 % (16-44); METAMYELOCYTES 2 % (0-0); MONOCYTES 4 % (0-5); MYELOCYTES 5 % (0-0); NEUTROPHILS 77 % (28-66); PLATELET ESTIMATE NORMAL (NORMAL)
[2022-05-16] MEDS ORDERED: MAGNESIUM OXIDE 400MG TAB (MAG-OX) PO ONE (07:35)
[2022-05-16] MEDS ORDERED: VANCOMYCIN HCL 750 MG, VIAL MATE ADAPTER 1 EACH in D5W 250 ML IV ONE (08:00)
[2022-05-16 08:22] VITALS: BP 114/53
[2022-05-16] MEDS: (RENVELA) SEVELAMER **CARBONate** 800 MG TAB PO SCH ×3 (09:25→17:39)
[2022-05-16] MEDS: LORATADINE 10 MG TAB PO SCH (09:25)
[2022-05-16] MEDS: APIXABAN 5 MG TAB (ELIQUIS) PO SCH ×2 (09:25→20:33)
[2022-05-16] MEDS: ASPIRIN 81MG ENTERIC TABLET PO SCH (09:26)
[2022-05-16] MEDS: bisoproloL fumarate 5 MG TAB PO SCH (09:26)
[2022-05-16] MEDS: CALCITRIOL 0.25 MCG CAP (S0169) PO SCH (09:26)
[2022-05-16] MEDS: POTASSIUM CHLORIDE 10MEQ SR TABLET PO SCH ×2 (09:26→20:33)
[2022-05-16] MEDS: OMEPRAZOLE 20MG CAP PO SCH ×2 (09:26→20:33)
[2022-05-16] MEDS: MIRALAX *UNIT DOSE* 17GM PACKET PO SCH ×2 (09:26→20:33)
[2022-05-16] MEDS: LEVEMIR (INSULIN DETEMIR) 1 UNITS/0.01ML SC SCH (09:27)
[2022-05-16] MEDS: FLUTICASONE PROP 0.05% NASAL SPRAY 16 GM (FLONASE) SCH (09:27)
[2022-05-16] MEDS: INSULIN LISPRO (NovoLOG) PER UNIT SC SCH ×4 (09:27→20:24)
[2022-05-16] MEDS: DIMETHICONE 2% OINTMENT(VANICREAM) 70GM TUBE TOP SCH ×2 (09:28→20:32)
[2022-05-16] MEDS: SANTYL OINT 30GM TOP SCH (09:28)
[2022-05-16] MEDS: MUPIROCIN 2% OINT 22 GM TUBE TOP SCH ×2 (09:29→20:31)
[2022-05-16] MEDS: ANALGESIC BALM CRM 3OZ TOP SCH ×4 (13:00→21:00)
[2022-05-16] MEDS: CEFEPIME HCL 1 GM in D5W MINI-BAG PLUS 50 ML IV SCH (17:40)
[2022-05-16 18:00] VITALS: BP 120/60
[2022-05-16 19:51] VITALS: BP 130/60
[2022-05-16] MEDS: SENOKOT S TAB PO PRN (20:32)
[2022-05-16] MEDS: ATORVASTATIN 20 MG TAB PO SCH (20:33)
[2022-05-16] MEDS: TAMSULOSIN 0.4 MG CAP PO SCH (20:33)
[2022-05-16] MEDS: MONTELUKAST 10 MG TAB PO SCH (20:34)
[2022-05-17] MEDS: metroNIDAZOLE 500 MG in IV 1 EA IV SCH ×2 (00:09→09:04)
[2022-05-17] MEDS: PERCOCET 5MG/325MG TAB PO PRN ×2 (04:06→11:45)
[2022-05-17 04:07] VITALS: BP 116/56
[2022-05-17 05:17] LABS: HEMATOCRIT 29.4 % (42.0-52.0); HEMOGLOBIN 9.5 g/dl (13.5-17.5); MEAN CORPUSCULAR HEMOGLOBIN 29.2 pg (27.0-33.0); MEAN CORPUSCULAR HGB CONC 32.3 g/dl (32.0-36.5); MEAN CORPUSCULAR VOLUME 90.5 fl (80.0-96.0); PLATELET COUNT, AUTOMATED 176 10^3/uL (150-450); RED BLOOD COUNT 3.25 10^6/uL (4.30-6.10); WHITE BLOOD COUNT 16.1 10^3/uL (4.0-10.0)
[2022-05-17 05:38] LABS: MAGNESIUM LEVEL 1.7 MG/DL (1.8-2.4)
[2022-05-17 05:39] LABS: C REACTIVE PROTEIN QUANTITATIV 9.4 MG/DL (<1.0); VANCOMYCIN RANDOM 19.2 UG/ML
[2022-05-17 05:41] LABS: ALBUMIN 1.6 G/DL (3.2-5.2); BILIRUBIN,TOTAL 0.2 MG/DL (0.3-1.2); CALCIUM LEVEL 7.5 MG/DL (8.3-10.6); CREATININE FOR GFR 7.53 MG/DL (0.70-1.30); GLOMERULAR FILTRATION RATE 7.7 (>49); POTASSIUM SERUM 3.8 MMOL/L (3.5-5.1); TOTAL PROTEIN 5.2 G/DL (5.7-8.2)
[2022-05-17 06:26] LABS: LYMPHOCYTES 12 % (16-44); METAMYELOCYTES 1 % (0-0); MONOCYTES 8 % (0-5); MYELOCYTES 2 % (0-0); NEUTROPHILS 75 % (28-66)
[2022-05-17 06:27] LABS: ANISOCYTOSIS 2+; MICROCYTOSIS 2+
[2022-05-17 06:29] LABS: PLATELET ESTIMATE NORMAL (NORMAL)
[2022-05-17] MEDS: ONDANSETRON 4MG 2ML VIAL IV PRN (07:28)
[2022-05-17 08:00] VITALS: BP 111/56
[2022-05-17] MEDS: ALBUTEROL SULFATE 2.5MG/0.5ML INH NEB SOLN INH SCH ×4 (08:00→20:28)
[2022-05-17] MEDS ORDERED: METOCLOPRAMIDE INJ 10MG/2ML VIAL IV ONE (08:35)
[2022-05-17] MEDS: SANTYL OINT 30GM TOP SCH (09:00)
[2022-05-17] MEDS: MIRALAX *UNIT DOSE* 17GM PACKET PO SCH ×2 (09:05→20:42)
[2022-05-17] MEDS: INSULIN LISPRO (NovoLOG) PER UNIT SC SCH ×4 (09:06→20:40)
[2022-05-17] MEDS: MUPIROCIN 2% OINT 22 GM TUBE TOP SCH ×2 (09:06→20:44)
[2022-05-17] MEDS: FLUTICASONE PROP 0.05% NASAL SPRAY 16 GM (FLONASE) SCH (09:06)
[2022-05-17] MEDS: LEVEMIR (INSULIN DETEMIR) 1 UNITS/0.01ML SC SCH (09:07)
[2022-05-17] MEDS: LORATADINE 10 MG TAB PO SCH (09:08)
[2022-05-17] MEDS: ASPIRIN 81MG ENTERIC TABLET PO SCH (09:08)
[2022-05-17] MEDS: bisoproloL fumarate 5 MG TAB PO SCH (09:08)
[2022-05-17] MEDS: APIXABAN 5 MG TAB (ELIQUIS) PO SCH (09:09)
[2022-05-17] MEDS: POTASSIUM CHLORIDE 10MEQ SR TABLET PO SCH ×2 (09:09→20:42)
[2022-05-17] MEDS: CALCITRIOL 0.25 MCG CAP (S0169) PO SCH (09:09)
[2022-05-17] MEDS: (RENVELA) SEVELAMER **CARBONate** 800 MG TAB PO SCH ×3 (09:09→17:39)
[2022-05-17] MEDS: OMEPRAZOLE 20MG CAP PO SCH ×2 (09:10→20:42)
[2022-05-17] MEDS: ANALGESIC BALM CRM 3OZ TOP SCH ×4 (09:11→20:43)
[2022-05-17] MEDS: DIMETHICONE 2% OINTMENT(VANICREAM) 70GM TUBE TOP SCH ×2 (09:11→20:43)
[2022-05-17] MEDS ORDERED: VANCOMYCIN HCL 1,000 MG, VIAL MATE ADAPTER 1 EACH in NS 250 ML IV SCH (11:35)
[2022-05-17] MEDS: METOCLOPRAMIDE INJ 10MG/2ML VIAL IV SCH ×3 (12:00→20:42)
[2022-05-17] MEDS ORDERED: LIDOCAINE 1% MDV 20ML VIAL As Ordered ONE (14:38)
[2022-05-17 15:49] LABS: APPEARANCE, BODY FLUID CLOUDY (CLEAR); PLEURAL FL COLOR RED (COLORLESS); SOURCE, BODY FLUID PLEURAL
[2022-05-17 16:00] VITALS: BP 118/56
[2022-05-17 16:24] LABS: PH BODY FLUID 7.416 UNITS (NOT ESTABLISHED); SOURCE, BODY FLUID pH PLEURAL
[2022-05-17 16:27] LABS: SOURCE, BODY FLUID ALBUMIN PLEURAL
[2022-05-17 16:32] LABS: SOURCE, BODY FLUID GLUCOSE PLEURAL
[2022-05-17 16:33] LABS: SOURCE, BODY FLUID TRIG PLEURAL; TRIGLYCERIDE, BODY FLUID 38 MG/DL (NOT ESTABLISHED)
[2022-05-17 16:34] LABS: AMYLASE, BODY FLUID < 20 U/L (NOT ESTABLISHED); CHOLESTEROL, BODY FLUID 45 MG/DL (NOT ESTABLISHED); SOURCE, BODY FLUID AMYLASE PLEURAL; SOURCE, BODY FLUID CHOL PLEURAL
[2022-05-17 16:35] LABS: SOURCE, BODY FLUID TOT PROTEIN PLEURAL; TOTAL PROTEIN, BODY FLUID 3.3 G/DL (NOT ESTABLISHED)
[2022-05-17] MEDS ORDERED: HEPARIN SOD (PORCINE) 5000UNITS/ML 1ML VIAL/SYRINGE PD ONE (16:40)
[2022-05-17 16:43] LABS: LDH, BODY FLUID > 700 U/L (NOT ESTABLISHED); SOURCE, BODY FLUID LDH PLEURAL
[2022-05-17 16:45] VITALS: BP 115/54
[2022-05-17] MEDS: cefTRIAXone SOD 2 GM in D5W MINI-BAG PLUS 50 ML IV SCH (16:58)
[2022-05-17 20:00] VITALS: BP 123/60
[2022-05-17] MEDS: ATORVASTATIN 20 MG TAB PO SCH (20:42)
[2022-05-17] MEDS: MONTELUKAST 10 MG TAB PO SCH (20:42)
[2022-05-17] MEDS: TAMSULOSIN 0.4 MG CAP PO SCH (20:42)
[2022-05-18] MEDS: PERCOCET 5MG/325MG TAB PO PRN ×3 (02:49→21:24)
[2022-05-18 04:00] VITALS: BP 118/56
[2022-05-18 06:03] LABS: HEMOGLOBIN 9.4 g/dl (13.5-17.5); MEAN CORPUSCULAR HEMOGLOBIN 28.7 pg (27.0-33.0); MEAN CORPUSCULAR HGB CONC 31.3 g/dl (32.0-36.5); MEAN CORPUSCULAR VOLUME 91.5 fl (80.0-96.0); PLATELET COUNT, AUTOMATED 189 10^3/uL (150-450); RED BLOOD COUNT 3.28 10^6/uL (4.30-6.10); WHITE BLOOD COUNT 16.7 10^3/uL (4.0-10.0)
[2022-05-18 06:24] LABS: MAGNESIUM LEVEL 1.7 MG/DL (1.8-2.4)
[2022-05-18 06:26] LABS: ALBUMIN 1.6 G/DL (3.2-5.2); ALKALINE PHOSPHATASE 103 U/L (46-116); ALT/SGPT 18 U/L (7.0-40); AST/SGOT 8 U/L (<34); BILIRUBIN,TOTAL < 0.2 MG/DL (0.3-1.2); BLOOD UREA NITROGEN 56 MG/DL (9-23); CARBON DIOXIDE LEVEL 26 MMOL/L (20-31); CHLORIDE LEVEL 96 MMOL/L (98-107); CREATININE FOR GFR 7.59 MG/DL (0.70-1.30); GLOMERULAR FILTRATION RATE 7.7 (>49); GLUCOSE, FASTING 188 MG/DL (74-106); POTASSIUM SERUM 3.8 MMOL/L (3.5-5.1); SODIUM LEVEL 133 MMOL/L (136-145)
[2022-05-18 06:38] LABS: BASOPHILS 1 % (0-1); EOSINOPHILS 3 % (0-3); LYMPHOCYTES 11 % (16-44); MONOCYTES 4 % (0-5); NEUTROPHILS 80 % (28-66); PLATELET ESTIMATE NORMAL (NORMAL)
[2022-05-18 06:39] LABS: ANISOCYTOSIS 1+
[2022-05-18] MEDS ORDERED: VANCOMYCIN HCL 750 MG, VIAL MATE ADAPTER 1 EACH in D5W 250 ML IV ONE (08:00)
[2022-05-18] MEDS: ALBUTEROL SULFATE 2.5MG/0.5ML INH NEB SOLN INH SCH ×3 (08:00→19:53)
[2022-05-18] MEDS: bisoproloL fumarate 5 MG TAB PO SCH (09:00)
[2022-05-18] MEDS: MIRALAX *UNIT DOSE* 17GM PACKET PO SCH ×2 (09:05→21:24)
[2022-05-18] MEDS: LEVEMIR (INSULIN DETEMIR) 1 UNITS/0.01ML SC SCH (09:06)
[2022-05-18] MEDS: INSULIN LISPRO (NovoLOG) PER UNIT SC SCH ×4 (09:06→21:20)
[2022-05-18] MEDS: METOCLOPRAMIDE INJ 10MG/2ML VIAL IV SCH ×4 (09:06→21:23)
[2022-05-18] MEDS: POTASSIUM CHLORIDE 10MEQ SR TABLET PO SCH ×2 (09:07→21:23)
[2022-05-18] MEDS: (RENVELA) SEVELAMER **CARBONate** 800 MG TAB PO SCH ×3 (09:07→18:00)
[2022-05-18] MEDS: OMEPRAZOLE 20MG CAP PO SCH ×2 (09:07→21:23)
[2022-05-18] MEDS: LORATADINE 10 MG TAB PO SCH (09:07)
[2022-05-18] MEDS: ANALGESIC BALM CRM 3OZ TOP SCH ×4 (09:08→21:21)
[2022-05-18] MEDS: MUPIROCIN 2% OINT 22 GM TUBE TOP SCH ×2 (09:08→21:22)
[2022-05-18] MEDS: FLUTICASONE PROP 0.05% NASAL SPRAY 16 GM (FLONASE) SCH (09:08)
[2022-05-18] MEDS: SANTYL OINT 30GM TOP SCH (09:09)
[2022-05-18] MEDS: ASPIRIN 81MG ENTERIC TABLET PO SCH (09:25)
[2022-05-18 09:30] VITALS: BP 103/54
[2022-05-18] MEDS ORDERED: ALTEPLASE 2MG/2ML VIAL XX ONE (09:30)
[2022-05-18] MEDS: DIMETHICONE 2% OINTMENT(VANICREAM) 70GM TUBE TOP SCH ×2 (11:36→21:25)
[2022-05-18 16:00] VITALS: BP 115/57
[2022-05-18] MEDS: cefTRIAXone SOD 2 GM in D5W MINI-BAG PLUS 50 ML IV SCH (17:00)
[2022-05-18] MEDS: SENOKOT S TAB PO PRN (18:16)
[2022-05-18 19:41] VITALS: BP 120/56
[2022-05-18] MEDS: MONTELUKAST 10 MG TAB PO SCH (21:23)
[2022-05-18] MEDS: TAMSULOSIN 0.4 MG CAP PO SCH (21:23)
[2022-05-18] MEDS: ATORVASTATIN 20 MG TAB PO SCH (21:23)
[2022-05-19 04:06] VITALS: BP 114/53
[2022-05-19] MEDS: ALBUTEROL SULFATE 2.5MG/0.5ML INH NEB SOLN INH SCH ×4 (07:13→19:48)
[2022-05-19 07:34] LABS: HEMATOCRIT 30.6 % (42.0-52.0); HEMOGLOBIN 9.6 g/dl (13.5-17.5); MEAN CORPUSCULAR HEMOGLOBIN 29.2 pg (27.0-33.0); MEAN CORPUSCULAR HGB CONC 31.4 g/dl (32.0-36.5); PLATELET COUNT, AUTOMATED 190 10^3/uL (150-450); RED BLOOD COUNT 3.29 10^6/uL (4.30-6.10); WHITE BLOOD COUNT 16.4 10^3/uL (4.0-10.0)
[2022-05-19 07:47] LABS: MAGNESIUM LEVEL 1.6 MG/DL (1.8-2.4)
[2022-05-19 07:54] VITALS: BP 93/55
[2022-05-19 07:56] LABS: ALBUMIN 1.9 G/DL (3.2-5.2); ALKALINE PHOSPHATASE 111 U/L (46-116); ALT/SGPT 15 U/L (7.0-40); AST/SGOT 9 U/L (<34); BILIRUBIN,TOTAL < 0.2 MG/DL (0.3-1.2); BLOOD UREA NITROGEN 49 MG/DL (9-23); CALCIUM LEVEL 8.3 MG/DL (8.3-10.6); CARBON DIOXIDE LEVEL 26 MMOL/L (20-31); CHLORIDE LEVEL 95 MMOL/L (98-107); CREATININE FOR GFR 7.36 MG/DL (0.70-1.30); GLOMERULAR FILTRATION RATE 7.9 (>49); GLUCOSE, FASTING 294 MG/DL (74-106); POTASSIUM SERUM 4.2 MMOL/L (3.5-5.1); SODIUM LEVEL 132 MMOL/L (136-145); TOTAL PROTEIN 5.8 G/DL (5.7-8.2)
[2022-05-19] MEDS ORDERED: LEVEMIR (INSULIN DETEMIR) 1 UNITS/0.01ML SC ONE (08:00)
[2022-05-19 08:29] LABS: ATYPICAL LYMPH 2 % (0-5); EOSINOPHILS 1 % (0-3); HYPOCHROMASIA 1+; LYMPHOCYTES 4 % (16-44); METAMYELOCYTES 2 % (0-0); MONOCYTES 7 % (0-5); MYELOCYTES 2 % (0-0); NEUTROPHILS 80 % (28-66)
[2022-05-19 08:30] LABS: ANISOCYTOSIS 1+; PLATELET ESTIMATE NORMAL (NORMAL)
[2022-05-19] MEDS: bisoproloL fumarate 5 MG TAB PO SCH (08:38)
[2022-05-19] MEDS: MIRALAX *UNIT DOSE* 17GM PACKET PO SCH ×2 (08:53→21:14)
[2022-05-19] MEDS: METOCLOPRAMIDE INJ 10MG/2ML VIAL IV SCH ×4 (08:53→21:14)
[2022-05-19] MEDS: INSULIN LISPRO (NovoLOG) PER UNIT SC SCH ×7 (08:54→21:15)
[2022-05-19] MEDS: ASPIRIN 81MG ENTERIC TABLET PO SCH (08:55)
[2022-05-19] MEDS: (RENVELA) SEVELAMER **CARBONate** 800 MG TAB PO SCH ×3 (08:55→16:58)
[2022-05-19] MEDS: POTASSIUM CHLORIDE 10MEQ SR TABLET PO SCH ×2 (08:56→21:14)
[2022-05-19] MEDS: OMEPRAZOLE 20MG CAP PO SCH ×2 (08:56→21:14)
[2022-05-19] MEDS: LORATADINE 10 MG TAB PO SCH (08:56)
[2022-05-19] MEDS: FLUTICASONE PROP 0.05% NASAL SPRAY 16 GM (FLONASE) SCH (08:57)
[2022-05-19] MEDS: SANTYL OINT 30GM TOP SCH (08:58)
[2022-05-19] MEDS: MUPIROCIN 2% OINT 22 GM TUBE TOP SCH ×2 (08:58→21:00)
[2022-05-19] MEDS: DIMETHICONE 2% OINTMENT(VANICREAM) 70GM TUBE TOP SCH ×2 (08:58→21:16)
[2022-05-19] MEDS: ANALGESIC BALM CRM 3OZ TOP SCH ×4 (08:58→21:16)
[2022-05-19] MEDS: MAGNESIUM OXIDE 400MG TAB (MAG-OX) PO SCH ×2 (09:40→21:15)
[2022-05-19] MEDS: APIXABAN 5 MG TAB (ELIQUIS) PO SCH ×2 (09:40→21:14)
[2022-05-19] MEDS ORDERED: SODIUM CHLORIDE HYPERTONIC 3% 15ML NEB SOL INH ONE (10:00)
[2022-05-19 16:19] VITALS: BP 131/60
[2022-05-19] MEDS: cefTRIAXone SOD 2 GM in D5W MINI-BAG PLUS 50 ML IV SCH (16:58)
[2022-05-19 20:00] VITALS: BP 130/59
[2022-05-19] MEDS: TAMSULOSIN 0.4 MG CAP PO SCH (21:14)
[2022-05-19] MEDS: MONTELUKAST 10 MG TAB PO SCH (21:14)
[2022-05-19] MEDS: ATORVASTATIN 20 MG TAB PO SCH (21:14)
[2022-05-20 03:53] LABS: HEMATOCRIT 29.4 % (42.0-52.0); HEMOGLOBIN 9.1 g/dl (13.5-17.5); MEAN CORPUSCULAR HEMOGLOBIN 28.5 pg (27.0-33.0); MEAN CORPUSCULAR VOLUME 92.2 fl (80.0-96.0); PLATELET COUNT, AUTOMATED 213 10^3/uL (150-450); RED BLOOD COUNT 3.19 10^6/uL (4.30-6.10); WHITE BLOOD COUNT 16.6 10^3/uL (4.0-10.0)
[2022-05-20 04:06] VITALS: BP_SYST 101; BP_SYST 130; BP_DIAS 55; BP_DIAS 59
[2022-05-20 04:18] LABS: MAGNESIUM LEVEL 1.7 MG/DL (1.8-2.4)
[2022-05-20 04:23] LABS: ALBUMIN 1.5 G/DL (3.2-5.2); ALKALINE PHOSPHATASE 106 U/L (46-116); ALT/SGPT 17 U/L (7.0-40); AST/SGOT < 8 U/L (<34); BILIRUBIN,TOTAL < 0.2 MG/DL (0.3-1.2); BLOOD UREA NITROGEN 50 MG/DL (9-23); CALCIUM LEVEL 7.8 MG/DL (8.3-10.6); CARBON DIOXIDE LEVEL 26 MMOL/L (20-31); CHLORIDE LEVEL 96 MMOL/L (98-107); CREATININE FOR GFR 7.28 MG/DL (0.70-1.30); GLUCOSE, FASTING 302 MG/DL (74-106); POTASSIUM SERUM 4.2 MMOL/L (3.5-5.1); SODIUM LEVEL 131 MMOL/L (136-145); TOTAL PROTEIN 5.3 G/DL (5.7-8.2)
[2022-05-20 04:27] LABS: BASOPHILS 2 % (0-1); EOSINOPHILS 1 % (0-3); HYPOCHROMASIA 1+; LYMPHOCYTES 5 % (16-44); MONOCYTES 9 % (0-5); MYELOCYTES 5 % (0-0); NEUTROPHILS 78 % (28-66); PLATELET ESTIMATE NORMAL (NORMAL)
[2022-05-20] MEDS: ALBUTEROL SULFATE 2.5MG/0.5ML INH NEB SOLN INH SCH ×4 (07:18→20:00)
[2022-05-20 07:45] VITALS: BP 97/50
[2022-05-20] MEDS: MUPIROCIN 2% OINT 22 GM TUBE TOP SCH ×2 (09:00→22:38)
[2022-05-20] MEDS ORDERED: DARBEPOETIN 100MCG/0.5ML *NON-DIALYSIS* SYRINGE SC SCH (09:00)
[2022-05-20] MEDS ORDERED: LEVEMIR (INSULIN DETEMIR) 1 UNITS/0.01ML SC SCH (09:00)
[2022-05-20] MEDS: FLUTICASONE PROP 0.05% NASAL SPRAY 16 GM (FLONASE) SCH (09:00)
[2022-05-20] MEDS: MAGNESIUM OXIDE 400MG TAB (MAG-OX) PO SCH ×2 (09:34→21:39)
[2022-05-20] MEDS: POTASSIUM CHLORIDE 10MEQ SR TABLET PO SCH ×2 (09:34→21:39)
[2022-05-20] MEDS: APIXABAN 5 MG TAB (ELIQUIS) PO SCH ×2 (09:35→21:39)
[2022-05-20] MEDS: ASPIRIN 81MG ENTERIC TABLET PO SCH (09:35)
[2022-05-20] MEDS: OMEPRAZOLE 20MG CAP PO SCH ×2 (09:35→21:39)
[2022-05-20] MEDS: (RENVELA) SEVELAMER **CARBONate** 800 MG TAB PO SCH ×3 (09:35→18:05)
[2022-05-20] MEDS: LORATADINE 10 MG TAB PO SCH (09:35)
[2022-05-20] MEDS: INSULIN LISPRO (NovoLOG) PER UNIT SC SCH ×7 (09:36→21:00)
[2022-05-20] MEDS: LEVEMIR (INSULIN DETEMIR) 1 UNITS/0.01ML SC SCH (09:37)
[2022-05-20] MEDS: MIRALAX *UNIT DOSE* 17GM PACKET PO SCH ×2 (09:37→21:38)
[2022-05-20] MEDS: METOCLOPRAMIDE INJ 10MG/2ML VIAL IV SCH ×4 (09:37→21:38)
[2022-05-20] MEDS: ANALGESIC BALM CRM 3OZ TOP SCH ×4 (09:38→21:39)
[2022-05-20] MEDS: DIMETHICONE 2% OINTMENT(VANICREAM) 70GM TUBE TOP SCH ×2 (09:39→21:40)
[2022-05-20] MEDS: SANTYL OINT 30GM TOP SCH (09:39)
[2022-05-20] MEDS: bisoproloL fumarate 5 MG TAB PO SCH (10:27)
[2022-05-20] MEDS: PERCOCET 5MG/325MG TAB PO PRN (10:28)
[2022-05-20] MEDS ORDERED: ALTEPLASE 2MG/2ML VIAL XX ONE (11:00)
[2022-05-20] MEDS ORDERED: DORNASE INHALATION SOLN 1MG/ML 2.5 ML AMP INTRAPLEU ONE (11:00)
[2022-05-20] MEDS ORDERED: SODIUM CHLORIDE HYPERTONIC 3% 15ML NEB SOL INH ONE (11:30)
[2022-05-20] MEDS ORDERED: PERCOCET 5MG/325MG TAB PO ONE (15:00)
[2022-05-20 16:00] VITALS: BP 116/59
[2022-05-20] MEDS: cefTRIAXone SOD 2 GM in D5W MINI-BAG PLUS 50 ML IV SCH (17:02)
[2022-05-20 20:00] VITALS: BP 101/55
[2022-05-20] MEDS: TAMSULOSIN 0.4 MG CAP PO SCH (21:39)
[2022-05-20] MEDS: ATORVASTATIN 20 MG TAB PO SCH (21:39)
[2022-05-20] MEDS: MONTELUKAST 10 MG TAB PO SCH (21:39)
[2022-05-21 04:00] VITALS: BP 106/51
[2022-05-21 05:28] LABS: HEMATOCRIT 27.6 % (42.0-52.0); HEMOGLOBIN 8.6 g/dl (13.5-17.5); MEAN CORPUSCULAR HEMOGLOBIN 28.6 pg (27.0-33.0); MEAN CORPUSCULAR HGB CONC 31.2 g/dl (32.0-36.5); MEAN CORPUSCULAR VOLUME 91.7 fl (80.0-96.0); PLATELET COUNT, AUTOMATED 223 10^3/uL (150-450); RED BLOOD COUNT 3.01 10^6/uL (4.30-6.10); WHITE BLOOD COUNT 19.6 10^3/uL (4.0-10.0)
[2022-05-21 05:52] LABS: CALCIUM LEVEL 8.1 MG/DL (8.3-10.6); CREATININE FOR GFR 7.36 MG/DL (0.70-1.30); GLOMERULAR FILTRATION RATE 7.9 (>49); POTASSIUM SERUM 4.4 MMOL/L (3.5-5.1)
[2022-05-21 05:54] LABS: MAGNESIUM LEVEL 1.8 MG/DL (1.8-2.4)
[2022-05-21 06:10] LABS: BASOPHILS 1 % (0-1); EOSINOPHILS 2 % (0-3); LYMPHOCYTES 8 % (16-44); METAMYELOCYTES 2 % (0-0); MONOCYTES 3 % (0-5); MYELOCYTES 6 % (0-0); NEUTROPHILS 76 % (28-66); PLATELET ESTIMATE NORMAL (NORMAL)
[2022-05-21 06:11] LABS: HYPOCHROMASIA 1+
[2022-05-21 07:25] VITALS: BP 105/51
[2022-05-21] MEDS: ALBUTEROL SULFATE 2.5MG/0.5ML INH NEB SOLN INH SCH ×4 (08:00→20:00)
[2022-05-21] MEDS: bisoproloL fumarate 5 MG TAB PO SCH (09:00)
[2022-05-21] MEDS: INSULIN LISPRO (NovoLOG) PER UNIT SC SCH ×7 (09:00→20:43)
[2022-05-21] MEDS: FLUTICASONE PROP 0.05% NASAL SPRAY 16 GM (FLONASE) SCH (09:00)
[2022-05-21] MEDS: METOCLOPRAMIDE INJ 10MG/2ML VIAL IV SCH ×4 (09:16→21:22)
[2022-05-21] MEDS: CALCITRIOL 0.25 MCG CAP (S0169) PO SCH (09:16)
[2022-05-21] MEDS: LEVEMIR (INSULIN DETEMIR) 1 UNITS/0.01ML SC SCH (09:16)
[2022-05-21] MEDS: POTASSIUM CHLORIDE 10MEQ SR TABLET PO SCH ×2 (09:16→21:22)
[2022-05-21] MEDS: MIRALAX *UNIT DOSE* 17GM PACKET PO SCH ×2 (09:16→21:23)
[2022-05-21] MEDS: ASPIRIN 81MG ENTERIC TABLET PO SCH (09:17)
[2022-05-21] MEDS: MAGNESIUM OXIDE 400MG TAB (MAG-OX) PO SCH ×2 (09:17→21:23)
[2022-05-21] MEDS: (RENVELA) SEVELAMER **CARBONate** 800 MG TAB PO SCH ×3 (09:17→17:08)
[2022-05-21] MEDS: APIXABAN 5 MG TAB (ELIQUIS) PO SCH ×2 (09:17→21:21)
[2022-05-21] MEDS: OMEPRAZOLE 20MG CAP PO SCH ×2 (09:17→21:22)
[2022-05-21] MEDS: LORATADINE 10 MG TAB PO SCH (09:17)
[2022-05-21] MEDS: SANTYL OINT 30GM TOP SCH (09:18)
[2022-05-21] MEDS: MUPIROCIN 2% OINT 22 GM TUBE TOP SCH ×2 (09:19→21:24)
[2022-05-21] MEDS: ANALGESIC BALM CRM 3OZ TOP SCH ×4 (09:19→21:24)
[2022-05-21] MEDS: DIMETHICONE 2% OINTMENT(VANICREAM) 70GM TUBE TOP SCH ×2 (09:19→21:24)
[2022-05-21] MEDS ORDERED: PERCOCET 5MG/325MG TAB PO ONE (13:30)
[2022-05-21 16:00] VITALS: BP 126/50
[2022-05-21] MEDS: cefTRIAXone SOD 2 GM in D5W MINI-BAG PLUS 50 ML IV SCH (17:09)
[2022-05-21 20:00] VITALS: BP 98/54
[2022-05-21] MEDS: ATORVASTATIN 20 MG TAB PO SCH (21:22)
[2022-05-21] MEDS: MONTELUKAST 10 MG TAB PO SCH (21:22)
[2022-05-21] MEDS: TAMSULOSIN 0.4 MG CAP PO SCH (21:22)
[2022-05-21] MEDS: PERCOCET 5MG/325MG TAB PO PRN (23:44)
[2022-05-22 04:00] VITALS: BP 104/54
[2022-05-22] MEDS: ONDANSETRON 4MG 2ML VIAL IV PRN (05:49)
[2022-05-22] MEDS: INSULIN LISPRO (NovoLOG) PER UNIT SC SCH ×7 (07:30→21:00)
[2022-05-22 08:00] VITALS: BP 112/76
[2022-05-22] MEDS: ALBUTEROL SULFATE 2.5MG/0.5ML INH NEB SOLN INH SCH ×4 (08:00→19:46)
[2022-05-22] MEDS: MIRALAX *UNIT DOSE* 17GM PACKET PO SCH ×2 (08:29→21:12)
[2022-05-22] MEDS: APIXABAN 5 MG TAB (ELIQUIS) PO SCH ×2 (08:29→21:13)
[2022-05-22] MEDS: METOCLOPRAMIDE INJ 10MG/2ML VIAL IV SCH ×4 (08:29→21:13)
[2022-05-22] MEDS: LEVEMIR (INSULIN DETEMIR) 1 UNITS/0.01ML SC SCH (08:29)
[2022-05-22] MEDS: (RENVELA) SEVELAMER **CARBONate** 800 MG TAB PO SCH ×3 (08:30→17:54)
[2022-05-22] MEDS: bisoproloL fumarate 5 MG TAB PO SCH (08:30)
[2022-05-22] MEDS: ASPIRIN 81MG ENTERIC TABLET PO SCH (08:31)
[2022-05-22] MEDS: OMEPRAZOLE 20MG CAP PO SCH ×2 (08:31→21:13)
[2022-05-22] MEDS: LORATADINE 10 MG TAB PO SCH (08:31)
[2022-05-22] MEDS: POTASSIUM CHLORIDE 10MEQ SR TABLET PO SCH ×2 (08:31→21:13)
[2022-05-22] MEDS: MAGNESIUM OXIDE 400MG TAB (MAG-OX) PO SCH ×2 (08:32→21:13)
[2022-05-22] MEDS: PERCOCET 5MG/325MG TAB PO PRN ×2 (08:33→21:13)
[2022-05-22] MEDS: MUPIROCIN 2% OINT 22 GM TUBE TOP SCH ×2 (08:34→21:14)
[2022-05-22] MEDS: ANALGESIC BALM CRM 3OZ TOP SCH ×4 (08:34→21:14)
[2022-05-22] MEDS: FLUTICASONE PROP 0.05% NASAL SPRAY 16 GM (FLONASE) SCH (08:35)
[2022-05-22] MEDS: DIMETHICONE 2% OINTMENT(VANICREAM) 70GM TUBE TOP SCH ×2 (08:35→21:15)
[2022-05-22] MEDS: SANTYL OINT 30GM TOP SCH (08:35)
[2022-05-22] MEDS ORDERED: VANCOMYCIN HCL 750 MG, VIAL MATE ADAPTER 1 EACH in D5W 250 ML IV ONE (09:00)
[2022-05-22 09:57] LABS: HEMATOCRIT 30.4 % (42.0-52.0); HEMOGLOBIN 9.2 g/dl (13.5-17.5); MEAN CORPUSCULAR HEMOGLOBIN 28.8 pg (27.0-33.0); MEAN CORPUSCULAR HGB CONC 30.3 g/dl (32.0-36.5); PLATELET COUNT, AUTOMATED 281 10^3/uL (150-450); WHITE BLOOD COUNT 21.8 10^3/uL (4.0-10.0)
[2022-05-22 10:14] LABS: ANISOCYTOSIS 1+; LYMPHOCYTES 6 % (16-44); MONOCYTES 7 % (0-5); MYELOCYTES 2 % (0-0); NEUTROPHILS 84 % (28-66); PLATELET ESTIMATE NORMAL (NORMAL); POIKILOCYTOSIS 1+; POLYCHROMASIA 1+
[2022-05-22 16:01] LABS: APPEARANCE, BODY FLUID TURBID
[2022-05-22 17:07] LABS: ANA (HEP2) Negative (.); ANCA-ATYPICAL <1:20 titer (Neg:<1:20); ASPERGILLUS FLAVUS ABY Negative (Neg:<1:1); ASPERGILLUS FUMIGATUS ABY Negative (Neg:<1:1); ASPERGILLUS NIGER ABY Negative (Neg:<1:1); CRYPTOCOCCUS ANTIBODY SERUM Negative (Neg:<1:2); CYTOPLASMIC NEUTROP AB ANCA-C <1:20 titer (Neg:<1:20); PERINUCLEAR AB ANCA-P <1:20 titer (Neg:<1:20)
[2022-05-22] MEDS: cefTRIAXone SOD 2 GM in D5W MINI-BAG PLUS 50 ML IV SCH (17:20)
[2022-05-22 20:00] VITALS: BP 95/52
[2022-05-22] MEDS: TAMSULOSIN 0.4 MG CAP PO SCH (21:13)
[2022-05-22] MEDS: ATORVASTATIN 20 MG TAB PO SCH (21:13)
[2022-05-22] MEDS: MONTELUKAST 10 MG TAB PO SCH (21:13)
[2022-05-23 04:00] VITALS: BP 108/52
[2022-05-23 04:00] LABS: HEMATOCRIT 25.7 % (42.0-52.0); HEMOGLOBIN 7.9 g/dl (13.5-17.5); MEAN CORPUSCULAR HEMOGLOBIN 28.6 pg (27.0-33.0); MEAN CORPUSCULAR HGB CONC 30.7 g/dl (32.0-36.5); MEAN CORPUSCULAR VOLUME 93.1 fl (80.0-96.0); PLATELET COUNT, AUTOMATED 250 10^3/uL (150-450); RED BLOOD COUNT 2.76 10^6/uL (4.30-6.10); WHITE BLOOD COUNT 20.7 10^3/uL (4.0-10.0)
[2022-05-23 04:19] LABS: VANCOMYCIN RANDOM 20.7 UG/ML
[2022-05-23] MEDS: ONDANSETRON 4MG 2ML VIAL IV PRN (04:22)
[2022-05-23 04:33] LABS: ANISOCYTOSIS 1+; ATYPICAL LYMPH 1 % (0-5); EOSINOPHILS 2 % (0-3); LYMPHOCYTES 10 % (16-44); MONOCYTES 6 % (0-5); NEUTROPHILS 79 % (28-66); PLATELET ESTIMATE NORMAL (NORMAL)
[2022-05-23 07:50] VITALS: BP 90/54
[2022-05-23] MEDS: ALBUTEROL SULFATE 2.5MG/0.5ML INH NEB SOLN INH SCH ×4 (08:00→19:45)
[2022-05-23] MEDS: (RENVELA) SEVELAMER **CARBONate** 800 MG TAB PO SCH ×3 (08:00→17:55)
[2022-05-23] MEDS: LEVEMIR (INSULIN DETEMIR) 1 UNITS/0.01ML SC SCH (08:56)
[2022-05-23] MEDS: INSULIN LISPRO (NovoLOG) PER UNIT SC SCH ×7 (08:56→20:56)
[2022-05-23] MEDS: METOCLOPRAMIDE INJ 10MG/2ML VIAL IV SCH ×5 (08:56→21:04)
[2022-05-23] MEDS: ASPIRIN 81MG ENTERIC TABLET PO SCH (08:57)
[2022-05-23] MEDS: CALCITRIOL 0.25 MCG CAP (S0169) PO SCH (08:57)
[2022-05-23] MEDS: MIRALAX *UNIT DOSE* 17GM PACKET PO SCH ×3 (08:57→21:03)
[2022-05-23] MEDS: APIXABAN 5 MG TAB (ELIQUIS) PO SCH ×3 (08:58→21:02)
[2022-05-23] MEDS: MAGNESIUM OXIDE 400MG TAB (MAG-OX) PO SCH ×3 (08:58→21:02)
[2022-05-23] MEDS: POTASSIUM CHLORIDE 10MEQ SR TABLET PO SCH ×3 (08:58→21:03)
[2022-05-23] MEDS: OMEPRAZOLE 20MG CAP PO SCH ×3 (08:58→21:02)
[2022-05-23] MEDS: LORATADINE 10 MG TAB PO SCH (08:58)
[2022-05-23] MEDS: FLUTICASONE PROP 0.05% NASAL SPRAY 16 GM (FLONASE) SCH (08:59)
[2022-05-23] MEDS: DIMETHICONE 2% OINTMENT(VANICREAM) 70GM TUBE TOP SCH ×3 (08:59→21:05)
[2022-05-23] MEDS: MUPIROCIN 2% OINT 22 GM TUBE TOP SCH ×3 (08:59→21:06)
[2022-05-23] MEDS: ANALGESIC BALM CRM 3OZ TOP SCH ×5 (08:59→21:05)
[2022-05-23] MEDS: bisoproloL fumarate 5 MG TAB PO SCH (09:00)
[2022-05-23] MEDS: SANTYL OINT 30GM TOP SCH (09:00)
[2022-05-23 09:13] LABS: ALBUMIN 1.6 G/DL (3.2-5.2); CALCIUM LEVEL 8.2 MG/DL (8.3-10.6); CREATININE FOR GFR 7.64 MG/DL (0.70-1.30); GLOMERULAR FILTRATION RATE 7.6 (>49); PHOSPHORUS LEVEL 5.8 MG/DL (2.4-5.1); POTASSIUM SERUM 4.6 MMOL/L (3.5-5.1)
[2022-05-23] MEDS: AMPICILLIN SOD/SULBACTAM SOD 3 GM in D5W MINI-BAG PLUS 100 ML IV SCH (14:30)
[2022-05-23 16:00] VITALS: BP 90/53
[2022-05-23 19:44] VITALS: BP 115/46
[2022-05-23] MEDS: TAMSULOSIN 0.4 MG CAP PO SCH ×2 (21:00→21:02)
[2022-05-23] MEDS: MONTELUKAST 10 MG TAB PO SCH ×2 (21:00→21:02)
[2022-05-23] MEDS: ATORVASTATIN 20 MG TAB PO SCH ×2 (21:00→21:02)
[2022-05-24] VITALS (9 sets, daily range): BP systolic 82–114; BP diastolic 38–58
[2022-05-24 04:15] LABS: HEMATOCRIT 26.2 % (42.0-52.0); HEMOGLOBIN 8.1 g/dl (13.5-17.5); MEAN CORPUSCULAR HEMOGLOBIN 28.8 pg (27.0-33.0); MEAN CORPUSCULAR HGB CONC 30.9 g/dl (32.0-36.5); MEAN CORPUSCULAR VOLUME 93.2 fl (80.0-96.0); PLATELET COUNT, AUTOMATED 272 10^3/uL (150-450); RED BLOOD COUNT 2.81 10^6/uL (4.30-6.10); WHITE BLOOD COUNT 23.1 10^3/uL (4.0-10.0)
[2022-05-24 04:40] LABS: ALBUMIN 1.7 G/DL (3.2-5.2); CALCIUM LEVEL 8.5 MG/DL (8.3-10.6); CREATININE FOR GFR 7.79 MG/DL (0.70-1.30); GLOMERULAR FILTRATION RATE 7.4 (>49); PHOSPHORUS LEVEL 5.7 MG/DL (2.4-5.1); POTASSIUM SERUM 4.6 MMOL/L (3.5-5.1)
[2022-05-24 04:57] LABS: EOSINOPHILS 2 % (0-3); LYMPHOCYTES 5 % (16-44); MONOCYTES 7 % (0-5); MYELOCYTES 5 % (0-0); NEUTROPHILS 79 % (28-66); PLATELET ESTIMATE NORMAL (NORMAL)
[2022-05-24 04:58] LABS: ANISOCYTOSIS 1+; HYPOCHROMASIA 1+
[2022-05-24] MEDS ORDERED: MIDODRINE 5 MG TAB PO ONE (06:00)
[2022-05-24] MEDS: INSULIN LISPRO (NovoLOG) PER UNIT SC SCH ×7 (07:30→21:00)
[2022-05-24] MEDS ORDERED: SODIUM CHLORIDE 0.9% 1000ML IV ONE (07:55)
[2022-05-24] MEDS: (RENVELA) SEVELAMER **CARBONate** 800 MG TAB PO SCH ×3 (08:00→17:12)
[2022-05-24] MEDS: ALBUTEROL SULFATE 2.5MG/0.5ML INH NEB SOLN INH SCH ×4 (08:00→19:46)
[2022-05-24] MEDS: bisoproloL fumarate 5 MG TAB PO SCH (08:37)
[2022-05-24] MEDS: MIRALAX *UNIT DOSE* 17GM PACKET PO SCH ×2 (09:08→21:31)
[2022-05-24] MEDS: METOCLOPRAMIDE INJ 10MG/2ML VIAL IV SCH ×4 (09:09→21:33)
[2022-05-24] MEDS: LORATADINE 10 MG TAB PO SCH (09:09)
[2022-05-24] MEDS: MAGNESIUM OXIDE 400MG TAB (MAG-OX) PO SCH ×2 (09:09→21:33)
[2022-05-24] MEDS: CALCITRIOL 0.25 MCG CAP (S0169) PO SCH (09:09)
[2022-05-24] MEDS: ASPIRIN 81MG ENTERIC TABLET PO SCH (09:09)
[2022-05-24] MEDS: OMEPRAZOLE 20MG CAP PO SCH ×2 (09:09→21:33)
[2022-05-24] MEDS: APIXABAN 5 MG TAB (ELIQUIS) PO SCH ×2 (09:09→21:32)
[2022-05-24] MEDS: POTASSIUM CHLORIDE 10MEQ SR TABLET PO SCH ×3 (09:09→21:32)
[2022-05-24] MEDS: LEVEMIR (INSULIN DETEMIR) 1 UNITS/0.01ML SC SCH (09:10)
[2022-05-24] MEDS: ANALGESIC BALM CRM 3OZ TOP SCH ×4 (09:11→21:34)
[2022-05-24] MEDS: FLUTICASONE PROP 0.05% NASAL SPRAY 16 GM (FLONASE) SCH (09:11)
[2022-05-24] MEDS: SANTYL OINT 30GM TOP SCH (09:11)
[2022-05-24] MEDS: DIMETHICONE 2% OINTMENT(VANICREAM) 70GM TUBE TOP SCH ×2 (09:12→21:35)
[2022-05-24] MEDS: MUPIROCIN 2% OINT 22 GM TUBE TOP SCH ×2 (09:12→21:35)
[2022-05-24] MEDS: PERCOCET 5MG/325MG TAB PO PRN ×2 (09:28→17:14)
[2022-05-24] MEDS ORDERED: POLYVINYL ALCOHOL OPHTH SOLN 15ML (LIQUITEARS) OU PRN (09:45)
[2022-05-24] MEDS: AMPICILLIN SOD/SULBACTAM SOD 3 GM in D5W MINI-BAG PLUS 100 ML IV SCH (13:23)
[2022-05-24] MEDS: ATORVASTATIN 20 MG TAB PO SCH (21:31)
[2022-05-24] MEDS: MONTELUKAST 10 MG TAB PO SCH (21:32)
[2022-05-24] MEDS: TAMSULOSIN 0.4 MG CAP PO SCH (21:33)
[2022-05-25] VITALS (11 sets, daily range): BP systolic 80–110; BP diastolic 40–59
[2022-05-25] MEDS: PERCOCET 5MG/325MG TAB PO PRN (00:34)
[2022-05-25 04:57] LABS: HEMATOCRIT 23.8 % (42.0-52.0); HEMOGLOBIN 7.3 g/dl (13.5-17.5); MEAN CORPUSCULAR HEMOGLOBIN 28.6 pg (27.0-33.0); MEAN CORPUSCULAR HGB CONC 30.7 g/dl (32.0-36.5); MEAN CORPUSCULAR VOLUME 93.3 fl (80.0-96.0); PLATELET COUNT, AUTOMATED 233 10^3/uL (150-450); RED BLOOD COUNT 2.55 10^6/uL (4.30-6.10); WHITE BLOOD COUNT 16.7 10^3/uL (4.0-10.0)
[2022-05-25 05:14] LABS: ALBUMIN 1.7 G/DL (3.2-5.2); CALCIUM LEVEL 7.8 MG/DL (8.3-10.6); CREATININE FOR GFR 7.82 MG/DL (0.70-1.30); GLOMERULAR FILTRATION RATE 7.4 (>49); PHOSPHORUS LEVEL 5.6 MG/DL (2.4-5.1); POTASSIUM SERUM 4.6 MMOL/L (3.5-5.1)
[2022-05-25 05:15] LABS: C REACTIVE PROTEIN QUANTITATIV 3.1 MG/DL (<1.0)
[2022-05-25 06:00] LABS: ANISOCYTOSIS 1+; BLAST CELLS 1 % (0-0); EOSINOPHILS 6 % (0-3); HYPOCHROMASIA 1+; LYMPHOCYTES 6 % (16-44); METAMYELOCYTES 1 % (0-0); MONOCYTES 5 % (0-5); MYELOCYTES 2 % (0-0); NEUTROPHILS 79 % (28-66); PLATELET ESTIMATE NORMAL (NORMAL)
[2022-05-25] MEDS: INSULIN LISPRO (NovoLOG) PER UNIT SC SCH ×7 (07:30→21:00)
[2022-05-25] MEDS: (RENVELA) SEVELAMER **CARBONate** 800 MG TAB PO SCH ×3 (08:00→18:00)
[2022-05-25] MEDS: ALBUTEROL SULFATE 2.5MG/0.5ML INH NEB SOLN INH SCH ×4 (08:00→21:00)
[2022-05-25 08:18] LABS: ERYTHROCYTE SEDIMENTATION RATE 36 mm/hr (0-20)
[2022-05-25] MEDS ORDERED: NS 500 ML IV ONE (08:30)
[2022-05-25] MEDS: METOCLOPRAMIDE INJ 10MG/2ML VIAL IV SCH ×4 (08:30→21:27)
[2022-05-25] MEDS: bisoproloL fumarate 5 MG TAB PO SCH (08:31)
[2022-05-25] MEDS: LEVEMIR (INSULIN DETEMIR) 1 UNITS/0.01ML SC SCH (08:33)
[2022-05-25] MEDS: POTASSIUM CHLORIDE 10MEQ SR TABLET PO SCH ×2 (10:55→21:26)
[2022-05-25] MEDS: MIRALAX *UNIT DOSE* 17GM PACKET PO SCH ×2 (10:55→21:26)
[2022-05-25] MEDS: APIXABAN 5 MG TAB (ELIQUIS) PO SCH ×2 (10:57→21:00)
[2022-05-25] MEDS: ASPIRIN 81MG ENTERIC TABLET PO SCH (10:57)
[2022-05-25] MEDS: NS 1,000 ML IV SCH ×2 (10:57→21:25)
[2022-05-25] MEDS: MUPIROCIN 2% OINT 22 GM TUBE TOP SCH ×2 (11:00→21:00)
[2022-05-25] MEDS: FLUTICASONE PROP 0.05% NASAL SPRAY 16 GM (FLONASE) SCH (11:06)
[2022-05-25] MEDS: LORATADINE 10 MG TAB PO SCH (11:06)
[2022-05-25] MEDS: MAGNESIUM OXIDE 400MG TAB (MAG-OX) PO SCH ×2 (11:08→21:26)
[2022-05-25] MEDS: ANALGESIC BALM CRM 3OZ TOP SCH ×4 (11:08→21:00)
[2022-05-25] MEDS: DIMETHICONE 2% OINTMENT(VANICREAM) 70GM TUBE TOP SCH ×2 (11:09→21:00)
[2022-05-25] MEDS: OMEPRAZOLE 20MG CAP PO SCH ×2 (11:17→21:26)
[2022-05-25] MEDS: AMPICILLIN SOD/SULBACTAM SOD 3 GM in D5W MINI-BAG PLUS 100 ML IV SCH (13:12)
[2022-05-25] MEDS: SANTYL OINT 30GM TOP SCH (14:00)
[2022-05-25] MEDS: ACETAMINOPHEN TAB 650MG DOSE (2X325MG) PO PRN (14:59)
[2022-05-25] MEDS ORDERED: MIDAZOLAM INJ 2MG/2ML VIAL As Ordered ONE (15:42)
[2022-05-25] MEDS ORDERED: propofoL 200 MG/20 ML VIAL As Ordered ONE (15:42)
[2022-05-25] MEDS ORDERED: fentaNYL 100 MCG/2 ML INJECTION As Ordered ONE (15:42)
[2022-05-25] MEDS ORDERED: LIDOCAINE 2% 100MG/5ML SDV (FOR ANES.) As Ordered ONE (15:42)
[2022-05-25] MEDS ORDERED: CETACAINE SPRAY 5GM As Ordered ONE (16:05)
[2022-05-25] MEDS ORDERED: LIDOCAINE VISCOUS 2% SOLN 15ML UDC As Ordered ONE (16:05)
[2022-05-25] MEDS ORDERED: PHENYLephrine 500MCG 5ML (100MCG/ML) SYRINGE As Ordered ONE (16:53)
[2022-05-25] MEDS ORDERED: oxyCODONE 5MG TAB PO PRN (17:05)
[2022-05-25] MEDS ORDERED: ONDANSETRON 4MG 2ML VIAL IV PRN (17:05)
[2022-05-25] MEDS ORDERED: fentaNYL 100 MCG/2 ML INJECTION IV PRN (17:05)
[2022-05-25] MEDS ORDERED: cefTRIAXone SOD 2 GM in D5W MINI-BAG PLUS 50 ML IV SCH (21:00)
[2022-05-25] MEDS: TAMSULOSIN 0.4 MG CAP PO SCH (21:26)
[2022-05-25] MEDS: ATORVASTATIN 20 MG TAB PO SCH (21:26)
[2022-05-25] MEDS: MONTELUKAST 10 MG TAB PO SCH (21:26)
== END 2022-05-25 22:41 | disposition short-term general hospital (02) | DRG 853 ==
LOC: M ED 13:43 → M ED INP 19:07 → ENRESERV 05-13 00:11 → M PCU 05-13 00:22
PROVIDERS: ADMIT Family Medicine; ATTEND Family Medicine
PROC: 0W2 Anatomical Regions, General, Change (ICD-10-PCS; 2022-05-12)
PROC: 3E1M39Z Irrigation of Peritoneal Cavity using Dialysate, Percutaneous Approach (ICD-10-PCS; 2022-05-12)
PROC: 0JBR0ZZ Excision of Left Foot Subcutaneous Tissue and Fascia, Open Approach (ICD-10-PCS; principal; 2022-05-14)
PROC: 0JBQ0ZZ Excision of Right Foot Subcutaneous Tissue and Fascia, Open Approach (ICD-10-PCS; 2022-05-14)
PROC: 30233N1 Transfusion of Nonautologous Red Blood Cells into Peripheral Vein, Percutaneous Approach (ICD-10-PCS; 2022-05-14)
PROC: B246ZZZ Ultrasonography of Right and Left Heart (ICD-10-PCS; 2022-05-15)
PROC: 0W9930Z Drainage of Right Pleural Cavity with Drainage Device, Percutaneous Approach (ICD-10-PCS; 2022-05-15)
PROC: 0W9930Z Drainage of Right Pleural Cavity with Drainage Device, Percutaneous Approach (ICD-10-PCS; 2022-05-17)
PROC: 3E0L3GC Introduction of Other Therapeutic Substance into Pleural Cavity, Percutaneous Approach (ICD-10-PCS; 2022-05-18)
PROC: 3E0L3GC Introduction of Other Therapeutic Substance into Pleural Cavity, Percutaneous Approach (ICD-10-PCS; 2022-05-20)
PROC: B246ZZ4 Ultrasonography of Right and Left Heart, Transesophageal (ICD-10-PCS; 2022-05-25)
DX: A41.89 Other specified sepsis (principal); N18.6 End stage renal disease; I38 Endocarditis, valve unspecified; J96.11 Chronic respiratory failure with hypoxia; I13.2 Hypertensive heart and chronic kidney disease with heart failure and with stage 5 chronic kidney disease, or end stage renal disease; J91.8 Pleural effusion in other conditions classified elsewhere; I24.8 Other forms of acute ischemic heart disease; E87.1 Hypo-osmolality and hyponatremia; N25.81 Secondary hyperparathyroidism of renal origin; L97.528 Non-pressure chronic ulcer of other part of left foot with other specified severity; L97.518 Non-pressure chronic ulcer of other part of right foot with other specified severity; I31.9 Disease of pericardium, unspecified; I25.10 Atherosclerotic heart disease of native coronary artery without angina pectoris; E11.22 Type 2 diabetes mellitus with diabetic chronic kidney disease; J45.909 Unspecified asthma, uncomplicated; I48.91 Unspecified atrial fibrillation; K21.9 Gastro-esophageal reflux disease without esophagitis; R53.1 Weakness; E87.6 Hypokalemia; E83.42 Hypomagnesemia; E78.5 Hyperlipidemia, unspecified; G47.33 Obstructive sleep apnea (adult) (pediatric); I50.9 Heart failure, unspecified; D63.1 Anemia in chronic kidney disease; E11.621 Type 2 diabetes mellitus with foot ulcer; I95.9 Hypotension, unspecified; B95.4 Other streptococcus as the cause of diseases classified elsewhere; N40.0 Benign prostatic hyperplasia without lower urinary tract symptoms; B95.62 Methicillin resistant Staphylococcus aureus infection as the cause of diseases classified elsewhere; M25.461 Effusion, right knee; M16.0 Bilateral primary osteoarthritis of hip; F17.220 Nicotine dependence, chewing tobacco, uncomplicated; E66.01 Morbid (severe) obesity due to excess calories; R91.8 Other nonspecific abnormal finding of lung field; G47.00 Insomnia, unspecified; E11.42 Type 2 diabetes mellitus with diabetic polyneuropathy; I25.2 Old myocardial infarction; L89.620 Pressure ulcer of left heel, unstageable; L89.610 Pressure ulcer of right heel, unstageable; K59.00 Constipation, unspecified; Z87.442 Personal history of urinary calculi; Z99.2 Dependence on renal dialysis; Z68.34 Body mass index [BMI] 34.0-34.9, adult; Z99.81 Dependence on supplemental oxygen; Z79.01 Long term (current) use of anticoagulants; Z79.82 Long term (current) use of aspirin; Z79.4 Long term (current) use of insulin; Z79.899 Other long term (current) drug therapy; Z95.5 Presence of coronary angioplasty implant and graft; Z90.49 Acquired absence of other specified parts of digestive tract; Z96.651 Presence of right artificial knee joint; Z91.15 Patient's noncompliance with renal dialysis